=== PATIENT | male | born 1950 | race Caucasian/White ===

== ENCOUNTER → 2016-06-07 | Outpatient (CLI) | payer MEDICARE, OTHER ==
[2016-06-07 09:47] LABS: ABSOLUTE BASOPHILS # (AUTO) 0.1 10^3/uL (0.0-0.2); ABSOLUTE EOSINOPHILS # (AUTO) 0.1 10^3/uL (0.0-0.6); ABSOLUTE LYMPHOCYTES (AUTO) 2.4 10^3/uL (0.5-4.7); ABSOLUTE NEUT (AUTO) 6.7 10^3/uL (1.7-8.2); BASOPHILS % (AUTO) 0.5 % (0-2); EOSINOPHILS % (AUTO) 0.8 % (0-6); HEMATOCRIT 50.9 % (37.9-51.0); HEMOGLOBIN 17.6 g/dL (13.5-17.0); HGB HCT DIFFERENCE 1.9; LYMPHOCYTES % (AUTO) 23.2 % (13-45); MEAN CORPUSCULAR HEMOGLOBIN 31.3 pg (27.0-33.4); MEAN CORPUSCULAR HGB CONC 34.7 g/dL (32.0-36.0); MEAN CORPUSCULAR VOLUME 90 fl (80-97); MONOCYTES % (AUTO) 9.4 % (3-13); RED BLOOD COUNT 5.64 10^6/uL (4.35-5.55); RED CELL DISTRIBUTION WIDTH 14.1 % (11.5-14.0); SEGMENTED NEUTROPHILS % (AUTO) 66.1 % (42-78); WHITE BLOOD COUNT 10.2 10^3/uL (4.0-10.5)
== END ==
LOC: OD 09:13
PROVIDERS: ATTEND Internal Medicine Pulmonary Disease
DX: R05 Cough (principal)
CPT/HCPCS: 36415; 71020; 85025

== ENCOUNTER 2016-08-01 11:05 | Inpatient (IN) | payer MEDICARE, OTHER ==
[2016-08-01] MEDS ORDERED: ACETAMINOPHEN 325 MG TABLET PO PRN (11:15)
[2016-08-01 11:58] LABS: ABSOLUTE BASOPHILS # (AUTO) 0.1 10^3/uL (0.0-0.2); ABSOLUTE LYMPHOCYTES (AUTO) 2.2 10^3/uL (0.5-4.7); ABSOLUTE MONOCYTES (AUTO) 1.7 10^3/uL (0.1-1.4); ABSOLUTE NEUT (AUTO) 8.7 10^3/uL (1.7-8.2); BASOPHILS % (AUTO) 0.5 % (0-2); EOSINOPHILS % (AUTO) 0.2 % (0-6); HEMATOCRIT 52.5 % (37.9-51.0); HEMOGLOBIN 17.4 g/dL (13.5-17.0); HGB HCT DIFFERENCE -0.3; LYMPHOCYTES % (AUTO) 17.2 % (13-45); MEAN CORPUSCULAR HEMOGLOBIN 30.2 pg (27.0-33.4); MEAN CORPUSCULAR HGB CONC 33.1 g/dL (32.0-36.0); MEAN CORPUSCULAR VOLUME 91 fl (80-97); MONOCYTES % (AUTO) 13.3 % (3-13); RED BLOOD COUNT 5.77 10^6/uL (4.35-5.55); RED CELL DISTRIBUTION WIDTH 14.9 % (11.5-14.0); SEGMENTED NEUTROPHILS % (AUTO) 68.8 % (42-78); WHITE BLOOD COUNT 12.7 10^3/uL (4.0-10.5)
[2016-08-01] MEDS ORDERED: IPRATROPIUM/ALBUTEROL 0.5-2.5 MG/3 ML AMPUL NEB SCH ×2 (12:00→20:00)
[2016-08-01 12:16] LABS: ARTERIAL BLOOD BASE EXCESS -0.9 mmol/L; ARTERIAL BLOOD O2 SATURATION 93.6 % (94-98)
[2016-08-01 12:18] LABS: ALANINE AMINOTRANSFERASE 24 U/L (21-72); ALBUMIN 4.5 g/dL (3.5-5.0); ALKALINE PHOSPHATASE 98 U/L (38-126); ANION GAP 18 (5-19); ASPARTATE AMINO TRANSFERASE 22 U/L (17-59); BILIRUBIN,DIRECT 0.4 mg/dL (0.0-0.4); BILIRUBIN,TOTAL 1.5 mg/dL (0.2-1.3); BLOOD UREA NITROGEN 29 mg/dL (7-20); CALCIUM 10.6 mg/dL (8.4-10.2); CARBON DIOXIDE 20 mmol/L (22-30); CHLORIDE 105 mmol/L (98-107); CREATININE RESULT 1.37 mg/dL (0.52-1.25); GLUCOSE 111 mg/dL (75-110); POTASSIUM 4.5 mmol/L (3.6-5.0); SODIUM 142.7 mmol/L (137-145); TOTAL PROTEIN 7.7 g/dL (6.3-8.2)
--- NOTE | 2016-08-01 12:21 | RADIOLOGY REPORT (SQ) ---
EXAM DESCRIPTION: CHEST PA/LAT COMPLETED DATE/TIME: 08/01/2016 12:02 pm REASON FOR STUDY: sob COMPARISON: 06/07/2016. NUMBER OF VIEWS: Two view. TECHNIQUE: Frontal and lateral radiographic views of the chest acquired. LIMITATIONS: None. FINDINGS: LUNGS AND PLEURA: Chronic pleural and parenchymal scarring. Surgical changes. No lobar i nfiltrates, masses or pneumothorax. No pleural effusion. Attenuated blood vessels and flattened calista- diaphragms. MEDIASTINUM AND HILAR STRUCTURES: No masses. No contour abnormalities. HEART AND VASCULAR STRUCTURES: Heart normal in size and contour. No evidence for failure. BONES: No acute findings. HARDWARE: None in the chest. OTHER: No other significant finding. IMPRESSION: COPD. CHRONIC SCARRING. NO ACUTE RADIOGRAPHIC FINDING IN THE CHEST. TECHNICAL DOCUMENTATION: JOB ID: [id number] [employer]- All Rights Reserved
[2016-08-01] MEDS: LEVOFLOXACIN 500 MG/D5W RTU 500 MG/100 ML RTUPB IV SCH (13:33)
[2016-08-01] MEDS: METHYLPREDNISOLONE INJ 40 MG/1 ML SDV IV SCH ×2 (13:34→21:47)
[2016-08-01] MEDS: NORMAL SALINE 1000 ML 1,000 ML IV PRN (13:35)
[2016-08-01 13:36] LABS: CREATINE KINASE MB 1.75 ng/mL (<4.55); TROPONIN I 0.049 ng/mL
[2016-08-01] MEDS: LEVALBUTEROL HCL NEB 1.25 MG/3 ML AMPUL NEB SCH ×2 (13:52→20:09)
--- NOTE | 2016-08-01 14:02 | PDOC H&P ---
History of Present Illness Admission Date/PCP: 08/01/16 11:05 ADRIEN GEE MD Patient complains of: Shortness of the breath History of Present Illness: This is a 66-year-old male with a significant history of the lung cancer status post surgery and chemotherapy and a history of the COPD and anxiety disorderCame to the Office with a complaint of shortness of the breath and increasing more cough and congestion since last 1 week and not getting better. Patient's denied any chest pain denied any nausea no vomiting Patient O2 sat is 85% in room air and patient usually needed 2 L oxygen at home at nighttime but not during the daytime. Patient also see a doctor Adri as outpatients for the COPD In the office decided to the patient's put in the hospital because of the hypoxia and the COPD acute exacerbations Past Medical History Cardiac Medical History: Reports: Hypertension Denies: Coronary Artery Disease, Myocardial Infarction Pulmonary Medical History: Reports: Chronic Obstructive Pulmonary Disease (COPD) Denies: Asthma, Bronchitis, Pneumonia Neurological Medical History: Denies: Seizures Malignancy Medical History: Reports: Lung Cancer Musculoskeltal Medical History: Denies: Arthritis Psychiatric Medical History: Reports: General Anxiety Disorder Hematology: Denies: Anemia Past Surgical History Past Surgical History: Reports: Other - Lung lobe resections Social History Smoking Status: Former Smoker Cigarettes Packs Per Day: 0 Last Time Smoked: 6 yrs ago Frequency of Alcohol Use: Rare Hx Recreational Drug Use: No Drugs: None Hx Prescription Drug Abuse: No Family History Family History: Reviewed & Not Pertinent Parental Family History Reviewed: Yes Children Family History Reviewed: Yes Sibling(s) Family History Reviewed.: Yes Medication/Allergy Home Medications: Albuterol Sulfate [Albuterol Sulfate 2.5mg/3 mL] 1 vial IH Q4HP PRN 08/01/16 Albuterol Sulfate [Proair Hfa Inhalation Aerosol 8.5 gm Mdi] 1 puff IH Q4 PRN Aspirin [Aspirin EC] 81 mg PO DAILY 08/01/16 Felodipine [Felodipine ER] 10 mg PO DAILY 08/01/16 Fluticasone/Salmeterol [Advair 250-50 Diskus 28 dose] 1 inh IH Q12 08/01/16 Multivit-Min/FA/Lycopen/Lutein [Centrum Silver Men Tablet] 1 tab PO DAILY Simvastatin [Zocor 20 mg Tablet] 20 mg PO QHS 08/01/16 Tiotropium [place] [Spiriva Handihaler 18 mcg/dose (30 Dose)] 1 cap IH DAILY Allergies/Adverse Reactions: lisinopril [Lisinopril] Adverse Reaction (Severe, Verified 12/23/13 10:53) severe hypotension Review of Systems Constitutional: ABSENT: chills, fever(s), headache(s), weight gain, weight loss Eyes: ABSENT: visual disturbances Ears: ABSENT: hearing changes Cardiovascular: PRESENT: dyspnea on exertion. ABSENT: chest pain, edema, orthropnea, palpitations Respiratory: PRESENT: cough, dyspnea, sputum. ABSENT: hemoptysis Gastrointestinal: ABSENT: abdominal pain, constipation, diarrhea, hematemesis, hematochezia, nausea, vomiting Genitourinary: ABSENT: dysuria, hematuria Musculoskeletal: ABSENT: joint swelling Integumentary: ABSENT: rash, wounds Neurological: ABSENT: abnormal gait, abnormal speech, confusion, dizziness, focal weakness, syncope Psychiatric: ABSENT: anxiety, depression, homidical ideation, suicidal ideation Endocrine: ABSENT: cold intolerance, heat intolerance, menstrual abnormalities, polydipsia, polyuria Hematologic/Lymphatic: ABSENT: easy bleeding, easy bruising, lymphadenopathy Physical Exam Vital Signs: Temp Pulse Resp BP Pulse Ox 97.7 F 64 20 128/63 H 92 08/01/16 11:31 08/01/16 11:31 08/01/16 11:31 08/01/16 11:31 08/01/16 12:10 Pulse Oximeter Continuous Start: 08/01/16 11: 35 Freq: RTQ4 Status: Active Document 08/01/16 12:10 HCR (Rec: 08/01/16 12:52 HCR [email or web address]) Pulse Oximetry Assessment Oxygen Saturation (92-100) 92 Oxygen Flow Rate (L/min) 4 Oxygen Delivery Method Nasal Cannula Equipment Usage Initial Set Up Continuous Pulse Oximeter 24 Hour Charge Charge Now Continuous SpO2 Machine # 11 Intake & Output 07/31/16 08/01/16 08/02/16 06:59 06:59 06:59 Weight 81.284 kg General appearance: PRESENT: no acute distress, well-developed, well-nourished Head exam: PRESENT: atraumatic, normocephalic Eye exam: PRESENT: conjunctiva pink, EOMI, PERRLA. ABSENT: scleral icterus Ear exam: PRESENT: normal external ear exam Mouth exam: PRESENT: moist, tongue midline Neck exam: PRESENT: full ROM. ABSENT: carotid bruit, JVD, lymphadenopathy, thyromegaly Respiratory exam: PRESENT: decreased breath sounds, wheezes Cardiovascular exam: PRESENT: irregular rhythm, RRR. ABSENT: diastolic murmur, rubs, systolic murmur Pulses: PRESENT: normal dorsalis pedis pul, +2 pedal pulses bilateral Vascular exam: PRESENT: normal capillary refill GI/Abdominal exam: PRESENT: normal bowel sounds, soft. ABSENT: distended, guarding, mass, organolmegaly, rebound, tenderness Rectal exam: PRESENT: deferred Neurological exam: PRESENT: alert, awake, oriented to person, oriented to place , oriented to time, oriented to situation, CN II-XII grossly intact. ABSENT: motor sensory deficit Psychiatric exam: PRESENT: appropriate affect, normal mood. ABSENT: homicidal ideation, suicidal ideation Skin exam: PRESENT: dry, intact, warm. ABSENT: cyanosis, rash Results Laboratory Results: 08/01/16 11:42 08/01/16 11:42 08/01/16 08/01/16 08/01/16 11:42 11:42 11:50 WBC 12.7 H RBC 5.77 H Hgb 17.4 H Hct 52.5 H MCV 91 MCH 30.2 MCHC 33.1 RDW 14.9 H Plt Count 310 Seg Neutrophils % 68.8 Lymphocytes % 17.2 Monocytes % 13.3 H Eosinophils % 0.2 Basophils % 0.5 Absolute Neutrophils 8.7 H Absolute Lymphocytes 2.2 Absolute Monocytes 1.7 H Absolute Eosinophils 0.0 Absolute Basophils 0.1 Carbonic Acid 0.80 L HCO3/H2CO3 Ratio 25:1 ABG pH 7.50 H ABG pCO2 26.5 L ABG pO2 60.7 L ABG HCO3 20.2 ABG O2 Saturation 93.6 L ABG Base Excess -0.9 FiO2 2L Sodium 142.7 Potassium 4.5 Chloride 105 Carbon Dioxide 20 L Anion Gap 18 BUN 29 H Creatinine 1.37 H Est GFR ( Amer) > 60 Est GFR (Non-Af Amer) 52 L Glucose 111 H Calcium 10.6 H Total Bilirubin 1.5 H AST 22 ALT 24 Alkaline Phosphatase 98 Total Protein 7.7 Albumin 4.5 08/01/16 08/01/16 08/01/16 11:42 12:41 12:41 Creatine Kinase 67 CK-MB (CK-2) 1.75 Troponin I 0.049 NT-Pro-B Natriuret Pep 4600 H Impressions: Chest X-Ray 08/01/16 00:00 IMPRESSION: COPD. CHRONIC SCARRING. NO ACUTE RADIOGRAPHIC FINDING IN THE CHEST. Assessment & Plan - Diagnosis (1) Shortness of breath Is this a current diagnosis for this admission?: YesPlan: Most likely COPD acute exacerbations will get the chest x-ray and start COPD treatment (2) COPD with acute exacerbation Is this a current diagnosis for this admission?: YesPlan: Start the patient on IV Solu-Medrol and Xopenex treatments and continues to monitor (3) Lung cancer Qualifiers: Lung location: unspecified part of lung Is this a current diagnosis for this admission?: YesPlan: Status post surgery and chemotherapy currently all stable patient see her Dr. Cat as outpatients (4) Atrial fibrillation Qualifiers: Atrial fibrillation type: unspecified Qualified Code(s): I48.91 - Unspecified atrial fibrillation Is this a current diagnosis for this admission?: YesPlan: We will consult the cardiology with this possible new onset for further evaluations (5) Hypertension Qualifiers: Hypertension type: essential hypertension Qualified Code(s): I10 - Essential (primary) hypertension Is this a current diagnosis for this admission?: YesPlan: Currently stable (6) Hyperlipidemia Is this a current diagnosis for this admission?: Yes - Time Time Spent: 30 to 50 Minutes Medications reviewed and adjusted accordingly: Yes Anticipated discharge: Home Within: Other - Inpatient Certification Medical Necessity: Need Close Monitoring Due to Risk of Patient Decompensation, Need For IV Fluids, Need for IV Antibiotics Post Hospital Care: D/C Fiscal Analyst Documentation - Plan Summary Plan Summary: Admit the patient in the hospital start the COPD treatment and continues to monitor. Discussed with the patient's regarding the patient's current conditions and agree with the plan
[2016-08-01] MEDS: MAGNESIUM SULFATE 1 GM/D5W 100 ML IV SCH ×2 (16:52→17:34)
[2016-08-01] MEDS: DOCUSATE SODIUM 100 MG CAPSULE PO SCH (17:37)
--- NOTE | 2016-08-01 19:25 | XCELERA REPORT ---
[address] [address] Transthoracic Echocardiogram Report Name: OZ KOCH Age: 66 yrs Gender: Male : 1950 Patient Status: Inpatient Patient Location: [id number]\S\435\[id number]\A Study Date: 08/01/2016 02:38 PM Height: 69 in Weight: 179 lb BSA: 2.0 m2 Procedure: A complete two-dimensional transthoracic echocardiogram was performed (2D, M-mode, spectral and color flow Doppler). The study was technically difficult with many images being suboptimal in quality. Reason For Study: Ventricular dysrhythmia Ordering Physician: DEBBY ISRAEL Performed By: Gill Muñoz Interpretation Summary The left ventricular ejection fraction is normal. LV diastolic function could not be adequately assessed. There is borderline concentric left ventricular hypertrophy. The left ventricle is grossly normal size. Wall motion cannot be accurately commented on, but no definite regional wall motion abnormalities noted. The right ventricle is moderately dilated. The right ventricular systolic function is mild to moderately reduced. The left atrial size is normal. The right atrium is moderately dilated. There is a trace amount of mitral regurgitation There is no mitral valve stenosis. No aortic regurgitation is present. There is no aortic valve stenosis There is a trace to mild amount of tricuspid regurgitation There is mild pulmonary hypertension by echo Right ventricular systolic pressure is estimated to be elevated at 30- 40mmHg. There is no pericardial effusion. MMode/2D Measurements \T\ Calculations RVDd: 4.1 cm LVIDd: 4.5 cmFS: 33.8 % Ao root diam: 3.6 cm IVSd: 1.1 cm LVIDs: 3.0 cmEDV(Teich): 92.0 ml LVPWd: 1.1 cmESV(Teich): 34.2 ml Ao root area: 10.2 cm2 EF(Teich): 62.8 % LA dimension: 3.1 cm LVOT diam: 2.1 cm LVOT area: 3.3 cm2 Doppler Measurements \T\ Calculations MV E max teena: MV P1/2t max teena: Ao V2 max: LV V1 max P.1 cm/sec 51.4 cm/sec 151.3 cm/sec 3.7 mmHg MV A max teena: MV P1/2t: 71.1 msec Ao max PG: LV V1 max: 60.7 cm/sec MVA(P1/2t): 3.1 cm2 9.2 mmHg 96.3 cm/sec MV E/A: 0.84 MV dec slope: MADDIE(V,D): 2.1 cm2 211.9 cm/sec2 PA V2 max: PI end-d teena: TR max teena: 62.2 cm/sec 124.9 cm/sec 272.6 cm/sec PA max PG: TR max P.5 mmHg 29.7 mmHg Left Ventricle The left ventricle is grossly normal size. There is borderline concentric left ventricular hypertrophy. The left ventricular ejection fraction is normal. LV diastolic function could not be adequately assessed. Wall motion cannot be accurately commented on, but no definite regional wall motion abnormalities noted. Right Ventricle The right ventricle is moderately dilated. The right ventricle appears to be hypertrophied. The right ventricular systolic function is mild to moderately reduced. Atria The right atrium is moderately dilated. The left atrial size is normal. Interarterial septum not well visualized and not well dopplered. Cannot comment on ASD/PFO presence. Mitral Valve The mitral valve is not well visualized. There is no mitral valve stenosis. There is a trace amount of mitral regurgitation. Aortic Valve The aortic valve is grossly normal. There is no aortic valve stenosis. No aortic regurgitation is present. Tricuspid Valve The tricuspid valve is not well visualized, but is grossly normal. There is no tricuspid stenosis. There is a trace to mild amount of tricuspid regurgitation. There is mild pulmonary hypertension by echo. Right ventricular systolic pressure is estimated to be elevated at 30-40mmHg. Pulmonic Valve The pulmonic valve is not well visualized. There is a mild amount of pulmonic regurgitation. Great Vessels The aortic root is not well visualized. The inferior vena cava was not well visualized. Effusions There is no pericardial effusion. : DEBBY ISRAEL > Debby Israel
[2016-08-01 19:54] LABS: CREATINE KINASE MB 1.51 ng/mL (<4.55); TROPONIN I 0.039 ng/mL
--- NOTE | 2016-08-01 20:03 | PDOC CONSULTATION ---
Consultation Consult Date: 08/01/16 Attending physician:: RAOUL JENKINS Consult reason:: Cardiac dysrhythmia History of Present Illness Admission Date/PCP: 08/01/16 11:05 ADRIEN RUSH MD Patient complains of: Shortness of breath History of Present Illness: This is a 66-year-old male with a significant history of the lung cancer status post surgery and chemotherapy and a history of the COPD and anxiety disorder admitted to the PMD office with a complaint of shortness of the breath and increasing more cough and congestion. Patient was noted to have a irregular heart rhythm and was felt to have atrial fibrillation. In fact computer readout of EKG shows atrial fibrillation however on my review it seems patient just had frequent ventricular ectopics. Patient's denied any chest pain, denied any nausea no vomiting Patient O2 sat is 85% in room air and patient usually needed 2 L oxygen at home at nighttime but not during the daytime. Patient also see Dr. Rush as outpatients for the COPD I was asked to evaluate this patient because of significant cardiac dysrhythmia. Past Medical History Cardiac Medical History: Reports: Hypertension Denies: Coronary Artery Disease, Myocardial Infarction Pulmonary Medical History: Reports: Chronic Obstructive Pulmonary Disease (COPD) Denies: Asthma, Bronchitis, Pneumonia Neurological Medical History: Denies: Seizures Malignancy Medical History: Reports: Lung Cancer Musculoskeltal Medical History: Denies: Arthritis Psychiatric Medical History: Reports: General Anxiety Disorder Hematology: Denies: Anemia Past Surgical History Past Surgical History: Reports: Other - Lung lobe resections Social History Information Source: Patient Smoking Status: Former Smoker Cigarettes Packs Per Day: 0 Last Time Smoked: 6 yrs ago Frequency of Alcohol Use: Rare Hx Recreational Drug Use: No Drugs: None Hx Prescription Drug Abuse: No - Advance Directive Resuscitation Status: Full Code Surrogate healthcare decision maker:: Patient's is the surrogate decision-maker Family History Family History: COPD Parental Family History Reviewed: Yes Children Family History Reviewed: Yes Sibling(s) Family History Reviewed.: Yes Medication/Allergy Home Medications: Albuterol Sulfate [Albuterol Sulfate 2.5mg/3 mL] 1 vial IH Q4HP PRN 08/01/16 Albuterol Sulfate [Proair Hfa Inhalation Aerosol 8.5 gm Mdi] 1 puff IH Q4 PRN Aspirin [Aspirin EC] 81 mg PO DAILY 08/01/16 Felodipine [Felodipine ER] 10 mg PO DAILY 08/01/16 Fluticasone/Salmeterol [Advair 250-50 Diskus 28 dose] 1 inh IH Q12 08/01/16 Multivit-Min/FA/Lycopen/Lutein [Centrum Silver Men Tablet] 1 tab PO DAILY Simvastatin [Zocor 20 mg Tablet] 20 mg PO QHS 08/01/16 Tiotropium [place] [Spiriva Handihaler 18 mcg/dose (30 Dose)] 1 cap IH DAILY Allergies/Adverse Reactions: lisinopril [Lisinopril] Adverse Reaction (Severe, Verified 12/23/13 10:53) severe hypotension Review of Systems Review of Systems: Please see history of present illness and past medical history as wall. Constitutional: No fever or chills reported. Head : No recent chronic headaches, recent head injury. Eyes: No recent eye pain, diplopia, redness, discharge, acute visual changes. Ears: No recent chronic ear pain, acute hearing loss, ear discharge. Oral cavity: No recent ulcerations, bleeding, oral cavity discomfort. Neck: No recent acute neck pain reported. Hematologic: No recent easy bruising or bleeding or hematologic malignancy reported. History of lung malignancy Lymphatic: No recent lymphatic malignancy, chronic lymphadenopathy reported yet Cardiovascular system review: See history of present illness. Respiratory system review: Recent cough with sputum production but no hemoptysis , blood clots in the lungs reported. Mild Shortness of breath on exertion Gastrointestinal system review: Negative for any recent acute or chronic abdominal pain, hematemesis, melena, recent change in bowel habits. Genitourinary system review: No recent acute or chronic hematuria, flank pain, UTI etc. reported. Skin system review: Negative for any recent abnormal bruising, no rash, no pruritus reported. Neurologic: No prior history of strokes, mini strokes, seizure disorder. Psychologic: No history of major psychosis or major depression reported. Musculoskeletal: Minor aches and pains reported. No acute joint swelling reported. Endocrine: No recent polyuria, polydipsia, recent heat or cold intolerance. Physical Exam Vital Signs: Temp Pulse Resp BP Pulse Ox 97.7 F 84 18 128/63 H 91 L 08/01/16 11:31 08/01/16 19:24 08/01/16 13:52 08/01/16 11:31 08/01/16 16:00 Pulse Oximeter Continuous Start: 08/01/16 11: 35 Freq: RTQ4 Status: Active Document 08/01/16 16:00 [facility] (Rec: 08/01/16 18:19 [facility] [email or web address]) Pulse Oximetry Assessment Oxygen Saturation (92-100) 91 Oxygen Flow Rate (L/min) 4 Oxygen Delivery Method Nasal Cannula Equipment Usage Equipment in Use Continuous SpO2 Machine # 11 Intake & Output 07/31/16 08/01/16 08/02/16 06:59 06:59 06:59 Weight 81.284 kg Exam: GENERAL: well-nourished and in no acute distress. Alert and oriented x3 HEAD: Atraumatic, normocephalic. EYES: Pupils equal round and reactive to light, extraocular movements intact, sclera anicteric, conjunctiva are normal. ENT: TMs normal, nares patent, oropharynx clear without exudates. Moist mucous membranes. No oral ulcerations or bleeding gums noted NECK: supple without lymphadenopathy. Trachea is central. No cervical or axillary lymphadenopathy noted. Carotids are 2+, JVD WNL LUNGS: Respiration seems nonlabored, no significant accessory muscle action noted. Bilateral mild wheezes rales or rhonchi noted. No significant dullness noted on percussion. CHEST: Palpation of the chest wall shows no significant chest wall tenderness. No other significant abnormalities noted. HEART: [place] CLINICAL APPLICATION CONSULTANT, No PSH, 1/6 LISANDRO aortic area, 1/6 valentine systolic murmur mitral area, no rubs, no gallops. ABDOMEN: Soft, no significant tenderness appreciated, normoactive bowel sounds. No guarding, no rebound. No rigidity noted . No masses appreciated. EXTREMITIES: Pedal pulses are 1-2+, no calf tenderness noted. No clubbing or cyanosis.trace to 1+ pedal edema noted NEUROLOGICAL: Focused neurological exam showed no significant neurologic deficit. Normal speech, no focal weakness appreciated. PSYCH: Normal mood, normal affect. Judgment and insight within normal limits. SKIN: No significant ecchymosis, rash, ulcerations or signs of pruritus noted. MUSCULOSKELETAL EXAM: No significant joint swelling noted. Results Laboratory Results: 08/01/16 11:42 08/01/16 11:42 08/01/16 08/01/16 08/01/16 11:42 11:42 11:50 WBC 12.7 H RBC 5.77 H Hgb 17.4 H Hct 52.5 H MCV 91 MCH 30.2 MCHC 33.1 RDW 14.9 H Plt Count 310 Seg Neutrophils % 68.8 Lymphocytes % 17.2 Monocytes % 13.3 H Eosinophils % 0.2 Basophils % 0.5 Absolute Neutrophils 8.7 H Absolute Lymphocytes 2.2 Absolute Monocytes 1.7 H Absolute Eosinophils 0.0 Absolute Basophils 0.1 Carbonic Acid 0.80 L HCO3/H2CO3 Ratio 25:1 ABG pH 7.50 H ABG pCO2 26.5 L ABG pO2 60.7 L ABG HCO3 20.2 ABG O2 Saturation 93.6 L ABG Base Excess -0.9 FiO2 2L Sodium 142.7 Potassium 4.5 Chloride 105 Carbon Dioxide 20 L Anion Gap 18 BUN 29 H Creatinine 1.37 H Est GFR ( Amer) > 60 Est GFR (Non-Af Amer) 52 L Glucose 111 H Calcium 10.6 H Magnesium Total Bilirubin 1.5 H AST 22 ALT 24 Alkaline Phosphatase 98 Total Protein 7.7 Albumin 4.5 08/01/16 12:41 WBC RBC Hgb Hct MCV MCH MCHC RDW Plt Count Seg Neutrophils % Lymphocytes % Monocytes % Eosinophils % Basophils % Absolute Neutrophils Absolute Lymphocytes Absolute Monocytes Absolute Eosinophils Absolute Basophils Carbonic Acid HCO3/H2CO3 Ratio ABG pH ABG pCO2 ABG pO2 ABG HCO3 ABG O2 Saturation ABG Base Excess FiO2 Sodium Potassium Chloride Carbon Dioxide Anion Gap BUN Creatinine Est GFR ( Amer) Est GFR (Non-Af Amer) Glucose Calcium Magnesium 2.0 Total Bilirubin AST ALT Alkaline Phosphatase Total Protein Albumin 08/01/16 08/01/16 08/01/16 11:42 12:41 12:41 Creatine Kinase 67 CK-MB (CK-2) 1.75 Troponin I 0.049 NT-Pro-B Natriuret Pep 4600 H 08/01/16 18:45 Creatine Kinase 64 CK-MB (CK-2) Troponin I NT-Pro-B Natriuret Pep EKG Comments: Indeterminate rhythm, frequent ventricular ectopy, couplets, bundle branch block pattern. Recommend repeat EKG Impressions: Chest X-Ray 08/01/16 00:00 IMPRESSION: COPD. CHRONIC SCARRING. NO ACUTE RADIOGRAPHIC FINDING IN THE CHEST. Status: Image reviewed by me Assessment & Plan - Diagnosis (1) Cardiac dysrhythmia Qualifiers: Arrhythmia type: unspecified cardiac arrhythmia Qualified Code(s): I49.9 - Cardiac arrhythmia, unspecified Is this a current diagnosis for this admission?: Yes (2) Hyperlipidemia Qualifiers: Hyperlipidemia type: other hyperlipidemia Qualified Code(s): E78.4 - Other hyperlipidemia Is this a current diagnosis for this admission?: Yes (3) Hypertension Qualifiers: Hypertension type: essential hypertension Qualified Code(s): I10 - Essential (primary) hypertension Is this a current diagnosis for this admission?: Yes (4) Shortness of breath Is this a current diagnosis for this admission?: Yes (5) COPD with acute exacerbation Is this a current diagnosis for this admission?: Yes - Notes Notes: Plan 2D echocardiogram, ordered Plan magnesium level: Ordered, order for replacement if needed. EKG is ordered, to assess heart rhythm. Cardiac enzymes, serial to rule out [place]. Cardiac monitoring for any cardiac dysrhythmia. DVT prophylaxis. Cardiac dysrhythmia: Underlying heart rhythm very difficult to assess. Will repeat EKG, check magnesium level and replace magnesium if low. Maintain potassium within normal limits. Switch patient from albuterol to Xopenex. Treatment of hypoxemia will certainly help. Hyperlipidemia: LDL goal is less than 70. Recommend statin therapy at least intermediate or high dose, of high potency status. Periodic lipid panel and liver panel is indicated. Patient to report any significant muscle discomfort or other side effects. Hypertension: Blood pressure goal in this patient is 140/90 or less. This was discussed with the patient. Currently blood pressure under reasonable control. Dyspnea: Most likely related to COPD exacerbation. Patient may have underlying CAD. Agree with my [place] rule out protocol to be instituted. Recommend DVT prophylaxis. - Time Time Spent: 30 to 50 Minutes - CODE STATUS was discussed, patient remains full code. Surrogate decision-maker patient's . Multiple medical problems were addressed. More than 50% of the time spent coordinating care, discussing management plans with involved caregivers. Management plans discussed with involved personnels. Medical decision making was of moderate to high complexity , patient's has multiple comorbidities. Medications reviewed and adjusted accordingly: Yes
[2016-08-01] MEDS: SIMVASTATIN 10 MG TABLET PO SCH (21:47)
[2016-08-01] MEDS ORDERED: HYDRALAZINE HCL INJ/PF 20 MG/1 ML SDV IV PRN (21:55)
[2016-08-01 22:43] LABS: ANION GAP 15 (5-19); BLOOD UREA NITROGEN 33 mg/dL (7-20); CALCIUM 9.9 mg/dL (8.4-10.2); CARBON DIOXIDE 22 mmol/L (22-30); CHLORIDE 105 mmol/L (98-107); CREATININE RESULT 1.28 mg/dL (0.52-1.25); GLUCOSE 203 mg/dL (75-110); POTASSIUM 4.9 mmol/L (3.6-5.0); SODIUM 141.9 mmol/L (137-145)
--- NOTE | 2016-08-01 22:43 | EKG REPORT ---
SEVERITY:- ABNORMAL ECG - SINUS TACHYCARDIA RUN OF VENTRICULAR PREMATURE COMPLEXES LEFT ATRIAL ABNORMALITY LEFT POSTERIOR FASCICULAR BLOCK REPOL ABNRM SUGGESTS ISCHEMIA, ANT-LAT LEADS : Confirmed by: Debby Yepez 01-Aug-2016 22:41:46
--- NOTE | 2016-08-01 22:46 | EKG REPORT ---
SEVERITY:- ABNORMAL ECG - INDETERMINATE RHYTHM, PAIRED VENTRICULAR PREMATURE COMPLEXES RIGHT AXIS DEVIATION NONSPECIFIC REPOL ABNORMALITY, DIFFUSE LEADS FREQUENT VPCs : Confirmed by: Debby Yepez 01-Aug-2016 22:45:53
[2016-08-02 01:17] LABS: CREATINE KINASE MB 1.71 ng/mL (<4.55); TROPONIN I 0.035 ng/mL
[2016-08-02] MEDS: LEVALBUTEROL HCL NEB 1.25 MG/3 ML AMPUL NEB SCH ×4 (02:19→20:32)
[2016-08-02 04:06] LABS: ABSOLUTE LYMPHOCYTES (AUTO) 0.5 10^3/uL (0.5-4.7); ABSOLUTE MONOCYTES (AUTO) 0.1 10^3/uL (0.1-1.4); ABSOLUTE NEUT (AUTO) 6.4 10^3/uL (1.7-8.2); BASOPHILS % (AUTO) 0.1 % (0-2); HEMATOCRIT 45.9 % (37.9-51.0); HGB HCT DIFFERENCE -1.2; LYMPHOCYTES % (AUTO) 7.7 % (13-45); MEAN CORPUSCULAR HEMOGLOBIN 29.7 pg (27.0-33.4); MEAN CORPUSCULAR HGB CONC 32.4 g/dL (32.0-36.0); MEAN CORPUSCULAR VOLUME 92 fl (80-97); MONOCYTES % (AUTO) 1.6 % (3-13); RED BLOOD COUNT 5.01 10^6/uL (4.35-5.55); RED CELL DISTRIBUTION WIDTH 14.6 % (11.5-14.0); SEGMENTED NEUTROPHILS % (AUTO) 90.6 % (42-78); WHITE BLOOD COUNT 7.1 10^3/uL (4.0-10.5)
[2016-08-02 04:16] LABS: HEMOGLOBIN 14.9 g/dL (13.5-17.0)
[2016-08-02 04:18] LABS: ALANINE AMINOTRANSFERASE 26 U/L (21-72); ALBUMIN 3.4 g/dL (3.5-5.0); ALKALINE PHOSPHATASE 69 U/L (38-126); ANION GAP 14 (5-19); ASPARTATE AMINO TRANSFERASE 16 U/L (17-59); BILIRUBIN,DIRECT 0.4 mg/dL (0.0-0.4); BILIRUBIN,TOTAL 0.8 mg/dL (0.2-1.3); BLOOD UREA NITROGEN 31 mg/dL (7-20); CALCIUM 9.3 mg/dL (8.4-10.2); CARBON DIOXIDE 16 mmol/L (22-30); CHLORIDE 111 mmol/L (98-107); CREATININE RESULT 1.03 mg/dL (0.52-1.25); GLUCOSE 182 mg/dL (75-110); MAGNESIUM 1.9 mg/dL (1.6-2.3); POTASSIUM 4.3 mmol/L (3.6-5.0); SODIUM 141.2 mmol/L (137-145); TOTAL PROTEIN 5.6 g/dL (6.3-8.2)
[2016-08-02] MEDS: METHYLPREDNISOLONE INJ 40 MG/1 ML SDV IV SCH ×3 (06:17→21:38)
--- NOTE | 2016-08-02 08:54 | PDOC PROGRESS REPORT ---
Subjective Progress Note for:: 08/02/16 Subjective:: Patient is currently doing well any chest pain. Patient's shortness of the blood is much better. Patient had a significant ventricular bigeminy and seen by the cardiology and patient was transferred to the ICU for close monitor Patients denied any cardiac symptoms denied any dizziness Patients noticed that his heart is a little irritated since last several weeks he noticed some palpitations Physical Exam Vital Signs: Temp Pulse Resp BP Pulse Ox 98.1 F 104 H 22 H 143/69 H 94 08/02/16 07:53 08/02/16 07:53 08/02/16 07:53 08/02/16 07:53 08/02/16 07:53 Pulse Oximeter Continuous Start: 08/01/16 11: 35 Freq: RTQ4 Status: Complete Document 08/01/16 16:00 [facility] (Rec: 08/01/16 18:19 [facility] [email or web address]) Pulse Oximetry Assessment Oxygen Saturation (92-100) 91 Oxygen Flow Rate (L/min) 4 Oxygen Delivery Method Nasal Cannula Equipment Usage Equipment in Use Continuous SpO2 Machine # 11 Intake & Output 08/01/16 08/02/16 08/03/16 06:59 06:59 06:59 Intake Total 670 Output Total 300 0 Balance 370 0 Weight 82.8 kg General appearance: PRESENT: no acute distress, well-developed, well-nourished Head exam: PRESENT: atraumatic, normocephalic Eye exam: PRESENT: conjunctiva pink, EOMI, PERRLA. ABSENT: scleral icterus Ear exam: PRESENT: normal external ear exam Mouth exam: PRESENT: moist, tongue midline Neck exam: PRESENT: full ROM. ABSENT: carotid bruit, JVD, lymphadenopathy, thyromegaly Respiratory exam: PRESENT: clear to auscultation steven Cardiovascular exam: PRESENT: RRR. ABSENT: diastolic murmur, rubs, systolic murmur Pulses: PRESENT: normal dorsalis pedis pul, +2 pedal pulses bilateral Vascular exam: PRESENT: normal capillary refill GI/Abdominal exam: PRESENT: normal bowel sounds, soft. ABSENT: distended, guarding, mass, organolmegaly, rebound, tenderness Rectal exam: PRESENT: deferred Neurological exam: PRESENT: alert, awake, oriented to person, oriented to place , oriented to time, oriented to situation, CN II-XII grossly intact. ABSENT: motor sensory deficit Psychiatric exam: PRESENT: appropriate affect, normal mood. ABSENT: homicidal ideation, suicidal ideation Skin exam: PRESENT: dry, intact, warm. ABSENT: cyanosis, rash Results Laboratory Results: 08/02/16 03:43 08/02/16 03:43 08/01/16 08/01/16 08/01/16 11:42 11:42 11:50 WBC 12.7 H RBC 5.77 H Hgb 17.4 H Hct 52.5 H MCV 91 MCH 30.2 MCHC 33.1 RDW 14.9 H Plt Count 310 Seg Neutrophils % 68.8 Lymphocytes % 17.2 Monocytes % 13.3 H Eosinophils % 0.2 Basophils % 0.5 Absolute Neutrophils 8.7 H Absolute Lymphocytes 2.2 Absolute Monocytes 1.7 H Absolute Eosinophils 0.0 Absolute Basophils 0.1 Carbonic Acid 0.80 L HCO3/H2CO3 Ratio 25:1 ABG pH 7.50 H ABG pCO2 26.5 L ABG pO2 60.7 L ABG HCO3 20.2 ABG O2 Saturation 93.6 L ABG Base Excess -0.9 FiO2 2L Sodium 142.7 Potassium 4.5 Chloride 105 Carbon Dioxide 20 L Anion Gap 18 BUN 29 H Creatinine 1.37 H Est GFR ( Amer) > 60 Est GFR (Non-Af Amer) 52 L Glucose 111 H Calcium 10.6 H Magnesium Total Bilirubin 1.5 H AST 22 ALT 24 Alkaline Phosphatase 98 Total Protein 7.7 Albumin 4.5 08/01/16 08/01/16 08/02/16 12:41 22:16 03:43 WBC RBC Hgb Hct MCV MCH MCHC RDW Plt Count Seg Neutrophils % Lymphocytes % Monocytes % Eosinophils % Basophils % Absolute Neutrophils Absolute Lymphocytes Absolute Monocytes Absolute Eosinophils Absolute Basophils Carbonic Acid HCO3/H2CO3 Ratio ABG pH ABG pCO2 ABG pO2 ABG HCO3 ABG O2 Saturation ABG Base Excess FiO2 Sodium 141.9 141.2 Potassium 4.9 4.3 Chloride 105 111 H Carbon Dioxide 22 16 L Anion Gap 15 14 BUN 33 H 31 H Creatinine 1.28 H 1.03 Est GFR ( Amer) > 60 > 60 Est GFR (Non-Af Amer) 56 L > 60 Glucose 203 H 182 H Calcium 9.9 9.3 Magnesium 2.0 2.0 1.9 Total Bilirubin 0.8 AST 16 L ALT 26 Alkaline Phosphatase 69 Total Protein 5.6 L Albumin 3.4 L 08/02/16 03:43 WBC 7.1 RBC 5.01 Hgb 14.9 D Hct 45.9 MCV 92 MCH 29.7 MCHC 32.4 RDW 14.6 H Plt Count 254 Seg Neutrophils % 90.6 H Lymphocytes % 7.7 L Monocytes % 1.6 L Eosinophils % 0.0 Basophils % 0.1 Absolute Neutrophils 6.4 Absolute Lymphocytes 0.5 Absolute Monocytes 0.1 Absolute Eosinophils 0.0 Absolute Basophils 0.0 Carbonic Acid HCO3/H2CO3 Ratio ABG pH ABG pCO2 ABG pO2 ABG HCO3 ABG O2 Saturation ABG Base Excess FiO2 Sodium Potassium Chloride Carbon Dioxide Anion Gap BUN Creatinine Est GFR ( Amer) Est GFR (Non-Af Amer) Glucose Calcium Magnesium Total Bilirubin AST ALT Alkaline Phosphatase Total Protein Albumin 08/01/16 08/01/16 08/01/16 11:42 12:41 12:41 Creatine Kinase 67 CK-MB (CK-2) 1.75 Troponin I 0.049 NT-Pro-B Natriuret Pep 4600 H 08/01/16 08/01/16 08/02/16 18:45 18:45 00:46 Creatine Kinase 64 65 CK-MB (CK-2) 1.51 Troponin I 0.039 NT-Pro-B Natriuret Pep 08/02/16 00:46 Creatine Kinase CK-MB (CK-2) 1.71 Troponin I 0.035 NT-Pro-B Natriuret Pep Impressions: Chest X-Ray 08/01/16 00:00 IMPRESSION: COPD. CHRONIC SCARRING. NO ACUTE RADIOGRAPHIC FINDING IN THE CHEST. Assessment & Plan - Diagnosis (1) Shortness of breath Is this a current diagnosis for this admission?: YesPlan: Most likely COPD acute exacerbations will get the chest x-ray and start COPD treatment (2) COPD with acute exacerbation Is this a current diagnosis for this admission?: YesPlan: Continues to current medications change from DuoNeb to Xopenex (3) Lung cancer Qualifiers: Lung location: unspecified part of lung Is this a current diagnosis for this admission?: YesPlan: Status post surgery and chemotherapy currently all stable patient see her Dr. Cat as outpatients (4) Atrial fibrillation Qualifiers: Atrial fibrillation type: unspecified Qualified Code(s): I48.91 - Unspecified atrial fibrillation Is this a current diagnosis for this admission?: YesPlan: This most likely a cardiac erythremia with a ventricular bigeminy follow with the cardiology (5) Hypertension Qualifiers: Hypertension type: essential hypertension Qualified Code(s): I10 - Essential (primary) hypertension Is this a current diagnosis for this admission?: YesPlan: Currently stable (6) Hyperlipidemia Qualifiers: Hyperlipidemia type: other hyperlipidemia Qualified Code(s): E78.4 - Other hyperlipidemia Is this a current diagnosis for this admission?: Yes - Time Time Spent with patient: 15-24 minutes Medications reviewed and adjusted accordingly: Yes Anticipated discharge: Home Within: Other - Inpatient Certification Medical Necessity: Need Close Monitoring Due to Risk of Patient Decompensation Post Hospital Care: 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 Patient's fairly consider most likely ventricular bigeminy. Discussed with the cardiology and if is remained stable will sit back to the patient's of the IMCU
[2016-08-02] MEDS: DOCUSATE SODIUM 100 MG CAPSULE PO SCH ×2 (09:13→18:15)
[2016-08-02] MEDS: AMLODIPINE BESYLATE 5 MG TABLET PO SCH (09:14)
[2016-08-02] MEDS: ASPIRIN 81 MG TABLET, ENT COATED PO SCH (09:14)
[2016-08-02] MEDS: ENOXAPARIN SODIUM INJ 40 MG/0.4 ML DISP.SYRIN SUBCUT SCH (09:15)
[2016-08-02] MEDS: NORMAL SALINE 1000 ML 1,000 ML IV PRN (09:22)
[2016-08-02] MEDS ORDERED: (PENDING PHARMACY ID) (Felodipine [Felodipine Er] 10 MG) PO SCH (10:00)
--- NOTE | 2016-08-02 11:20 | EKG REPORT ---
SEVERITY:- ABNORMAL ECG - SINUS TACHYCARDIA MULTIPLE VENTRICULAR PREMATURE COMPLEXES LEFT ATRIAL ABNORMALITY NONSPECIFIC T ABNORMALITIES, LATERAL LEADS : Confirmed by: Debby Yepez 02-Aug-2016 11:19:02
[2016-08-02 11:53] LABS: ARTERIAL BLOOD BASE EXCESS -0.9 mmol/L; ARTERIAL BLOOD O2 SATURATION 96.6 % (94-98)
[2016-08-02] MEDS: LEVOFLOXACIN 500 MG/D5W RTU 500 MG/100 ML RTUPB IV SCH (11:54)
--- NOTE | 2016-08-02 14:58 | PROGRESS NOTE E ---
Progress Note NAME: OZ KOCH : 1950 AGE: 66Y DATE: 08/02/2016 ROOM: [facility] SUBJECTIVE: The patient denies any chest pain or discomfort. He continues to be in bigeminal rhythm. The patient has no history of syncope. Note that the patient's right ventricle is dilated and [id number] reduction of right ventricular function. The left atrium is also dilated. Although in the setting of this, there is only mild pulmonary hypertension, the right ventricular systolic pressure is 30-40 mmHg. Note that when the patient takes off his oxygen to go to the bathroom his saturations drop down into the 80s. Patient usually is on 2 L oxygen at home at nighttime, but not during the daytime. The patient has no cough or sputum production. There is no chest pain or discomfort. There is no palpitation. The patient does not feel any PVCs. There are no TIA or CVA symptoms. REVIEW OF SYSTEMS: Negative apart from the history of present illness as mentioned earlier. MEDICATIONS: The patient's medications have been reviewed. OBJECTIVE: GENERAL: The patient is well built and well nourished, in no acute distress, awake, alert, oriented x3. VITAL SIGNS: With a temperature of 97.6 degrees Fahrenheit, pulse is 100 beats per minute. The patient is in bigeminal rhythm. The blood pressure is 135/58, respirations are 22 per minute, O2 saturations are 93% on 4 L nasal cannula. HEAD: Atraumatic, normocephalic. EYES: Pupils are equal, round, regular, reactive to light and accommodation. Extraocular movements are normal. Sclera is without any icterus. Conjunctivae are normal. ENT: Negative. NECK: Supple without lymphadenopathy. Trachea is central. There is no cervical or axillary lymphadenopathy. Carotids are 2+. JVD is within normal limits. LUNGS: There are no accessory muscles of respiration in use. There are a few bilateral rhonchi. There is diminished air entry and prolonged expiration on auscultation. On percussion, there is hyperresonance. CARDIOVASCULAR SYSTEM: S1 and S2 are heard. There is no S3 gallop. There is no S4 gallop. There is a systolic murmur in the left sternal border of the apex. There is no rub. ABDOMEN: Soft, nontender. There is no hepatosplenomegaly. Bowel sounds are normal. There are no masses appreciated. EXTREMITIES: Pedal pulses are 1+ to 2+. There is no calf tenderness noted. There is no clubbing or cyanosis. There is trace pedal edema present. Femorals are diminished. There are no femoral bruits. CENTRAL NERVOUS SYSTEM: The patient is conscious, awake, alert, oriented x3 with no focal deficits. PSYCHIATRIC: The patient's judgment and insight are intact. His affect is normal. SKIN: There is no significant ecchymosis, rash, ulcerations, or signs of pruritus noted. MUSCULOSKELETAL: No significant joint swelling noted. DIAGNOSTIC STUDIES: The patient's EKG shows sinus tachycardia with PVCs. Left atrial abnormality. No *------* beats. The patient's intake and output is not accurate. The patient's white count is 7100, hemoglobin is 14.9, hematocrit is 45.9, platelet count is 254,000. The patient's sodium is 141.2, potassium 4.3, chloride 100, CO2 is 16. The patient's BUN is 31, creatinine is 1.03, GFR is greater than 60. His glucose is 182, his magnesium is 1.9, his calcium is 9.3. His liver function tests are normal with AST of 16. The patient's albumin is 3.4 and his total protein is 5.6. His CPK-MB is negative. His troponin I is 0.035. IMPRESSION AND PLAN: 1. CARDIAC DYSRHYTHMIA IN THE FORM OF PVCS, MOSTLY BIGEMINAL RHYTHM. With the right ventricular enlargement, would recommend that the patient be transferred once the COPD is controlled and back to baseline to [facility] to see if the patient needs further EP study. 2. HYPERLIPIDEMIA. 3. HYPERTENSION. 4. COPD WITH ACUTE EXACERBATION, IMPROVING. Continue Zocor. Continue albuterol sulfate and aspirin. Would recommend to change albuterol sulfate to Xopenex. Continue felodipine for his blood pressure and Advair Diskus 250/50. Also, Spiriva HandiHaler 18 one capsule inhalation daily. I have spoken to the family, especially the daughter and the about the patient being transferred. Once the patient's COPD gets back to baseline, then would discuss with [facility] EP Cardiology to see if they would take him for an EP study since the patient has very frequent PVCs. He has a dilated right ventricle. NOTE: Thirty minutes spent on this patient with more than 50% of the time spent on direct patient care. His medications have been reviewed and discussed with the other care providers on the case. Most likely, the cause of the right ventricular enlargement is the COPD and lung cancer having had surgery on both sides of the lung. NOTE: This moderate *------* in view of the PVCs. Will follow with you. Note that the patient is a FULL CODE. His is the surrogate healthcare decision maker. DICTATING PHYSICIAN: JEANETTE TENORIO M.D. [id number] PHY#: [id number] ID: [id number] JOB#: [id number] ACCT: [id number] cc: >
[2016-08-02] MEDS: SIMVASTATIN 10 MG TABLET PO SCH (21:38)
[2016-08-02] MEDS ORDERED: METHYLPREDNISOLONE INJ 40 MG/1 ML SDV ONE (21:43)
[2016-08-03] MEDS: LEVALBUTEROL HCL NEB 1.25 MG/3 ML AMPUL NEB SCH ×4 (02:05→20:21)
[2016-08-03 03:46] LABS: HEMATOCRIT 45.2 % (37.9-51.0); HEMOGLOBIN 14.8 g/dL (13.5-17.0); HGB HCT DIFFERENCE -0.8; MEAN CORPUSCULAR HEMOGLOBIN 29.7 pg (27.0-33.4); MEAN CORPUSCULAR HGB CONC 32.6 g/dL (32.0-36.0); MEAN CORPUSCULAR VOLUME 91 fl (80-97); RED BLOOD COUNT 4.97 10^6/uL (4.35-5.55); WHITE BLOOD COUNT 12.6 10^3/uL (4.0-10.5)
[2016-08-03 04:12] LABS: ANION GAP 11 (5-19); BLOOD UREA NITROGEN 28 mg/dL (7-20); CALCIUM 9.9 mg/dL (8.4-10.2); CARBON DIOXIDE 23 mmol/L (22-30); CHLORIDE 111 mmol/L (98-107); CREATININE RESULT 0.91 mg/dL (0.52-1.25); GLUCOSE 151 mg/dL (75-110); SODIUM 144.6 mmol/L (137-145)
[2016-08-03 04:14] LABS: BASOPHILS % (MANUAL) 0 % (0-2); EOSINOPHILS % (MANUAL) 0 % (0-6); LYMPHOCYTES % (MANUAL) 6 % (13-45); TOTAL CELLS COUNTED 100
[2016-08-03 04:15] LABS: ANISOCYTOSIS SLIGHT; TOXIC VACUOLATION PRESENT
[2016-08-03 04:24] LABS: POTASSIUM 5.2 mmol/L (3.6-5.0)
[2016-08-03] MEDS ORDERED: METHYLPREDNISOLONE INJ 40 MG/1 ML SDV ONE (05:27)
[2016-08-03] MEDS: METHYLPREDNISOLONE INJ 40 MG/1 ML SDV IV SCH ×3 (05:35→21:07)
--- NOTE | 2016-08-03 07:09 | RADIOLOGY REPORT (SQ) ---
EXAM DESCRIPTION: CHEST SINGLE VIEW COMPLETED DATE/TIME: 08/03/2016 6:14 am REASON FOR STUDY: sob COMPARISON: 08/01/2016, 03/11/2015. CT, 03/12/2015. EXAM PARAMETERS: NUMBER OF VIEWS: One view. TECHNIQUE: Single frontal radiographic view of the chest acquired. RADIATION DOSE: NA LIMITATIONS: None. FINDINGS: LUNGS AND PLEURA: Blunting of the left costophrenic angle. Small bibasilar scar. Promine nt left cardiophrenic fat pad. Mild emphysematous appearance of the lungs. Small suture -scar overl ie the upper lungs. MEDIASTINUM AND HILAR STRUCTURES: No masses. Contour normal. HEART AND VASCULAR STRUCTURES: Heart normal in size. Normal vasculature. BONES: No acute findings. HARDWARE: None in the chest. OTHER: No other significant finding. IMPRESSION: No significant interval change. TECHNICAL DOCUMENTATION: JOB ID: [id number]
[2016-08-03] MEDS ORDERED: SODIUM POLYSTYRENE SULFONATE 15 GM/60 ML PO ONE (08:00)
[2016-08-03] MEDS: ENOXAPARIN SODIUM INJ 40 MG/0.4 ML DISP.SYRIN SUBCUT SCH (08:33)
--- NOTE | 2016-08-03 09:16 | EKG REPORT ---
SEVERITY:- ABNORMAL ECG - SINUS TACHYCARDIA VENTRICULAR BIGEMINY INCOMPLETE RIGHT BUNDLE BRANCH BLOCK BORDERLINE R WAVE PROGRESSION, ANTERIOR LEADS NONSPECIFIC REPOL ABNORMALITY, LATERAL LEADS : Confirmed by: Debby Yepez 03-Aug-2016 09:16:14
--- NOTE | 2016-08-03 09:43 | Physician Advisory Note ---
Physician Advisor ProgressNote .: Pursuant to the plan for [facility], I have reviewed the medical record for this patient. Physician Advisor Statement: Please consider documentin. "Chronic Hypoxemic Resp Failure requiring 2L O2 at night at baseline" 2. "Acute hypoxemic resp failure, requiring 4L O2 initially at midday to get sat 92% (when he usually needs no O2 during the day) with associated tachypnea & tachycardia & SOB even at rest" [P/F ratio of 178] THanks! CK
[2016-08-03] MEDS: DOCUSATE SODIUM 100 MG CAPSULE PO SCH ×2 (09:50→17:23)
[2016-08-03] MEDS: AMLODIPINE BESYLATE 5 MG TABLET PO SCH (09:50)
[2016-08-03] MEDS: ASPIRIN 81 MG TABLET, ENT COATED PO SCH (09:50)
[2016-08-03] MEDS: RANOLAZINE 500 MG TAB.SR.12H PO SCH ×2 (09:50→17:23)
[2016-08-03] MEDS: LEVOFLOXACIN 500 MG/D5W RTU 500 MG/100 ML RTUPB IV SCH (11:57)
--- NOTE | 2016-08-03 12:45 | PDOC PROGRESS REPORT ---
Subjective Progress Note for:: 08/03/16 Subjective:: Patient is feeling much better denied any chest pain denied any nausea no vomiting. Patient heart rate is currently stable. No other events happens. As discussed with the Dr. Mcgee suggest that he talk to Dr. Bowen in the [place] and suggest the patient's put on Ranexa and follow outpatients Physical Exam Vital Signs: Temp Pulse Resp BP Pulse Ox 97.5 F 92 29 H 116/53 L 86 L 08/03/16 09:25 08/03/16 09:25 08/03/16 11:00 08/03/16 10:50 08/03/16 11:00 Pulse Oximeter Continuous Start: 08/01/16 11: 35 Freq: RTQ4 Status: Complete Document 08/01/16 16:00 [facility] (Rec: 08/01/16 18:19 [facility] [email or web address]) Pulse Oximetry Assessment Oxygen Saturation (92-100) 91 Oxygen Flow Rate (L/min) 4 Oxygen Delivery Method Nasal Cannula Equipment Usage Equipment in Use Continuous SpO2 Machine # 11 Intake & Output 08/02/16 08/03/16 08/04/16 06:59 06:59 06:59 Intake Total 670 1022 240 Output Total 300 600 0 Balance 370 422 240 Weight 82.8 kg 83.7 kg General appearance: PRESENT: no acute distress, well-developed, well-nourished Head exam: PRESENT: atraumatic, normocephalic Eye exam: PRESENT: conjunctiva pink, EOMI, PERRLA. ABSENT: scleral icterus Ear exam: PRESENT: normal external ear exam Mouth exam: PRESENT: moist, tongue midline Neck exam: PRESENT: full ROM. ABSENT: carotid bruit, JVD, lymphadenopathy, thyromegaly Respiratory exam: PRESENT: clear to auscultation steven Cardiovascular exam: PRESENT: RRR. ABSENT: diastolic murmur, rubs, systolic murmur Pulses: PRESENT: normal dorsalis pedis pul, +2 pedal pulses bilateral Vascular exam: PRESENT: normal capillary refill GI/Abdominal exam: PRESENT: normal bowel sounds, soft. ABSENT: distended, guarding, mass, organolmegaly, rebound, tenderness Rectal exam: PRESENT: deferred Neurological exam: PRESENT: alert, awake, oriented to person, oriented to place , oriented to time, oriented to situation, CN II-XII grossly intact. ABSENT: motor sensory deficit Psychiatric exam: PRESENT: appropriate affect, normal mood. ABSENT: homicidal ideation, suicidal ideation Skin exam: PRESENT: dry, intact, warm. ABSENT: cyanosis, rash Results Laboratory Results: 08/03/16 03:31 08/03/16 03:31 08/03/16 08/03/16 03:31 03:31 WBC 12.6 H RBC 4.97 Hgb 14.8 Hct 45.2 MCV 91 MCH 29.7 MCHC 32.6 RDW 15.0 H Plt Count 277 Seg Neutrophils % Not Reportable Lymphocytes % Not Reportable Monocytes % Not Reportable Eosinophils % Not Reportable Basophils % Not Reportable Absolute Neutrophils Not Reportable Absolute Lymphocytes Not Reportable Absolute Monocytes Not Reportable Absolute Eosinophils Not Reportable Absolute Basophils Not Reportable Sodium 144.6 Potassium 5.2 H Chloride 111 H Carbon Dioxide 23 Anion Gap 11 BUN 28 H Creatinine 0.91 Est GFR ( Amer) > 60 Est GFR (Non-Af Amer) > 60 Glucose 151 H Calcium 9.9 Magnesium 2.0 08/01/16 08/01/16 08/01/16 11:42 12:41 12:41 Creatine Kinase 67 CK-MB (CK-2) 1.75 Troponin I 0.049 NT-Pro-B Natriuret Pep 4600 H 08/01/16 08/01/16 08/02/16 18:45 18:45 00:46 Creatine Kinase 64 65 CK-MB (CK-2) 1.51 Troponin I 0.039 NT-Pro-B Natriuret Pep 08/02/16 00:46 Creatine Kinase CK-MB (CK-2) 1.71 Troponin I 0.035 NT-Pro-B Natriuret Pep Impressions: Chest X-Ray 08/03/16 07:00 IMPRESSION: No significant interval change. Assessment & Plan - Diagnosis (1) Shortness of breath Is this a current diagnosis for this admission?: YesPlan: Currently all improving will cut down the Solu-Medrol to 40 mg (2) COPD with acute exacerbation Is this a current diagnosis for this admission?: YesPlan: Continues to current medications change from DuoNeb to Xopenex (3) Lung cancer Qualifiers: Lung location: unspecified part of lung Is this a current diagnosis for this admission?: YesPlan: Status post surgery and chemotherapy currently all stable patient see her Dr. Cat as outpatients (4) Atrial fibrillation Qualifiers: Atrial fibrillation type: unspecified Qualified Code(s): I48.91 - Unspecified atrial fibrillation Is this a current diagnosis for this admission?: YesPlan: Most likely ventricular bigeminy follow with the cardiology (5) Hypertension Qualifiers: Hypertension type: essential hypertension Qualified Code(s): I10 - Essential (primary) hypertension Is this a current diagnosis for this admission?: YesPlan: Currently stable (6) Hyperlipidemia Qualifiers: Hyperlipidemia type: other hyperlipidemia Qualified Code(s): E78.4 - Other hyperlipidemia Is this a current diagnosis for this admission?: Yes - Time Time Spent with patient: 15-24 minutes Medications reviewed and adjusted accordingly: Yes Anticipated discharge: Home Within: within 48 hours - Inpatient Certification Medical Necessity: Need Close Monitoring Due to Risk of Patient Decompensation Post Hospital Care: D/C Resource Room [employer]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 Discussed with the patient's and the daughter about the patient's current conditions and all the test results
--- NOTE | 2016-08-03 14:31 | PDOC CONSULTATION ---
Consultation Consult Date: 08/01/16 Attending physician:: RAOUL JENKINS Consult reason:: dyspnea History of Present Illness Admission Date/PCP: 08/01/16 11:05 ADRIEN GEE MD History of Present Illness: OZ KOCH is a 66 year old [facility] presented to the emergency room complains of increasing shortness of breath was also had felt to have cardiac abnormality with elevated enzymes and EKG changes he was subsequently admitted to the intensive care unit Past Medical History Cardiac Medical History: Reports: Hypertension Denies: Coronary Artery Disease, Myocardial Infarction Pulmonary Medical History: Reports: Chronic Obstructive Pulmonary Disease (COPD) Denies: Asthma, Bronchitis, Pneumonia Neurological Medical History: Denies: Seizures Malignancy Medical History: Reports: Lung Cancer Musculoskeltal Medical History: Denies: Arthritis Hematology: Denies: Anemia Social History Information Source: Patient, DrLesa Gill, [facility] Records Smoking Status: Former Smoker Passive smoke exposure as: Both Frequency of Alcohol Use: Rare Hx Recreational Drug Use: No Hx Prescription Drug Abuse: No Have you travelled outside of [place] in the past 12 months?: No Family History Family History: Reviewed & Not Pertinent Parental Family History Reviewed: Yes Children Family History Reviewed: Yes Sibling(s) Family History Reviewed.: Yes Medication/Allergy Home Medications: Aspirin [Aspirin EC] 81 mg PO DAILY 08/01/16 Fluticasone/Salmeterol [Advair 250-50 Diskus 28 dose] 1 inh IH Q12 08/01/16 Multivit-Min/FA/Lycopen/Lutein [Centrum Silver Men Tablet] 1 tab PO DAILY Simvastatin [Zocor 20 mg Tablet] 20 mg PO QHS 08/01/16 Tiotropium [place] [Spiriva Handihaler 18 mcg/dose (30 Dose)] 1 cap IH DAILY Amlodipine Besylate [Norvasc 5 mg Tablet] 5 mg PO DAILY #30 tablet 08/05/16 Levalbuterol HCl [Xopenex Neb 1.25 mg/3 ml Ampul] 1.25 mg NEB RTQ6 #120 vial.neb 08/05/16 Levofloxacin [Levaquin 500 mg Tablet] 500 mg PO DAILY #5 tablet 08/05/16 Metoprolol Tartrate [Lopressor 25 mg Tablet] 12.5 mg PO Q12 #60 tablet 08/05/16 Prednisone [Deltasone 20 mg Tablet] 20 mg PO DAILY #6 tablet 08/05/16 Allergies/Adverse Reactions: lisinopril [Lisinopril] Adverse Reaction (Severe, Verified 12/23/13 10:53) severe hypotension Physical Exam General appearance: PRESENT: cooperative, disheveled, mild distress, well- developed, well-nourished Head exam: PRESENT: atraumatic Eye exam: PRESENT: conjunctiva pale, EOMI Mouth exam: PRESENT: dry mucosa, neck supple Neck exam: PRESENT: carotid bruit Respiratory exam: PRESENT: decreased breath sounds, prolonged expiratory phas, rales, rhonchi, symmetrical, wheezes Cardiovascular exam: PRESENT: RRR, +S1, +S2 Pulses: PRESENT: normal radial pulses GI/Abdominal exam: PRESENT: normal bowel sounds, soft. ABSENT: distended, guarding, mass, organolmegaly, rebound, tenderness Rectal exam: PRESENT: deferred Gentrourinary exam: PRESENT: indwelling catheter Musculoskeletal exam: PRESENT: normal inspection Neurological exam: PRESENT: alert, awake Skin exam: PRESENT: dry, warm Results Laboratory Results: 08/01/16 11:42 08/01/16 11:42 WBC 12.7 H RBC 5.77 H Hgb 17.4 H Hct 52.5 H MCV 91 MCH 30.2 MCHC 33.1 RDW 14.9 H Plt Count 310 Seg Neutrophils % 68.8 Lymphocytes % 17.2 Monocytes % 13.3 H Eosinophils % 0.2 Basophils % 0.5 Absolute Neutrophils 8.7 H Absolute Lymphocytes 2.2 Absolute Monocytes 1.7 H Absolute Eosinophils 0.0 Absolute Basophils 0.1 Impressions: Chest X-Ray 08/01/16 00:00 IMPRESSION: COPD. CHRONIC SCARRING. NO ACUTE RADIOGRAPHIC FINDING IN THE CHEST. Assessment & Plan - Diagnosis (1) Atrial fibrillation Qualifiers: Atrial fibrillation type: unspecified Qualified Code(s): I48.91 - Unspecified atrial fibrillation Is this a current diagnosis for this admission?: YesPlan: As per cardiology (2) Hypertension Qualifiers: Hypertension type: essential hypertension Qualified Code(s): I10 - Essential (primary) hypertension Is this a current diagnosis for this admission?: YesPlan: Stable at this time (3) COPD with acute exacerbation Is this a current diagnosis for this admission?: YesPlan: Bronchodilator therapy beta agonists as well as long-acting muscarinic agents - Time Critical Time spent with patient: 35 or more minutes - 50 minute
--- NOTE | 2016-08-03 14:33 | PDOC PROGRESS REPORT ---
Subjective Progress Note for:: 08/02/16 Subjective:: Feeling a little better today Physical Exam Vital Signs: Temp Pulse Resp BP Pulse Ox 98.1 F 97 22 H 143/69 H 94 08/02/16 07:53 08/02/16 08:52 08/02/16 07:53 08/02/16 07:53 08/02/16 07:53 Pulse Oximeter Continuous Start: 08/01/16 11: 35 Freq: RTQ4 Status: Complete Document 08/01/16 16:00 [facility] (Rec: 08/01/16 18:19 [facility] [email or web address]) Pulse Oximetry Assessment Oxygen Saturation (92-100) 91 Oxygen Flow Rate (L/min) 4 Oxygen Delivery Method Nasal Cannula Equipment Usage Equipment in Use Continuous SpO2 Machine # 11 Intake & Output 08/01/16 08/02/16 08/03/16 06:59 06:59 06:59 Intake Total 670 Output Total 300 0 Balance 370 0 Weight 82.8 kg General appearance: PRESENT: no acute distress, disheveled, well-developed, well -nourished Head exam: PRESENT: atraumatic, normocephalic Eye exam: PRESENT: conjunctiva pale, EOMI Mouth exam: PRESENT: moist, neck supple Neck exam: ABSENT: carotid bruit, JVD, lymphadenopathy, thyromegaly Respiratory exam: PRESENT: decreased breath sounds, prolonged expiratory phas, rhonchi, symmetrical, unlabored, wheezes Cardiovascular exam: PRESENT: irregular rhythm Pulses: PRESENT: normal radial pulses GI/Abdominal exam: PRESENT: normal bowel sounds, soft. ABSENT: distended, guarding, mass, organolmegaly, rebound, tenderness Rectal exam: PRESENT: deferred Gentrourinary exam: PRESENT: indwelling catheter Musculoskeletal exam: PRESENT: normal inspection Neurological exam: PRESENT: alert, awake Psychiatric exam: PRESENT: normal mood Skin exam: PRESENT: dry, warm Results Laboratory Results: 08/02/16 03:43 08/02/16 03:43 08/01/16 08/01/16 08/01/16 11:42 11:42 11:50 WBC 12.7 H RBC 5.77 H Hgb 17.4 H Hct 52.5 H MCV 91 MCH 30.2 MCHC 33.1 RDW 14.9 H Plt Count 310 Seg Neutrophils % 68.8 Lymphocytes % 17.2 Monocytes % 13.3 H Eosinophils % 0.2 Basophils % 0.5 Absolute Neutrophils 8.7 H Absolute Lymphocytes 2.2 Absolute Monocytes 1.7 H Absolute Eosinophils 0.0 Absolute Basophils 0.1 Carbonic Acid 0.80 L HCO3/H2CO3 Ratio 25:1 ABG pH 7.50 H ABG pCO2 26.5 L ABG pO2 60.7 L ABG HCO3 20.2 ABG O2 Saturation 93.6 L ABG Base Excess -0.9 FiO2 2L Sodium 142.7 Potassium 4.5 Chloride 105 Carbon Dioxide 20 L Anion Gap 18 BUN 29 H Creatinine 1.37 H Est GFR ( Amer) > 60 Est GFR (Non-Af Amer) 52 L Glucose 111 H Calcium 10.6 H Magnesium Total Bilirubin 1.5 H AST 22 ALT 24 Alkaline Phosphatase 98 Total Protein 7.7 Albumin 4.5 08/01/16 08/01/16 08/02/16 12:41 22:16 03:43 WBC RBC Hgb Hct MCV MCH MCHC RDW Plt Count Seg Neutrophils % Lymphocytes % Monocytes % Eosinophils % Basophils % Absolute Neutrophils Absolute Lymphocytes Absolute Monocytes Absolute Eosinophils Absolute Basophils Carbonic Acid HCO3/H2CO3 Ratio ABG pH ABG pCO2 ABG pO2 ABG HCO3 ABG O2 Saturation ABG Base Excess FiO2 Sodium 141.9 141.2 Potassium 4.9 4.3 Chloride 105 111 H Carbon Dioxide 22 16 L Anion Gap 15 14 BUN 33 H 31 H Creatinine 1.28 H 1.03 Est GFR ( Amer) > 60 > 60 Est GFR (Non-Af Amer) 56 L > 60 Glucose 203 H 182 H Calcium 9.9 9.3 Magnesium 2.0 2.0 1.9 Total Bilirubin 0.8 AST 16 L ALT 26 Alkaline Phosphatase 69 Total Protein 5.6 L Albumin 3.4 L 08/02/16 03:43 WBC 7.1 RBC 5.01 Hgb 14.9 D Hct 45.9 MCV 92 MCH 29.7 MCHC 32.4 RDW 14.6 H Plt Count 254 Seg Neutrophils % 90.6 H Lymphocytes % 7.7 L Monocytes % 1.6 L Eosinophils % 0.0 Basophils % 0.1 Absolute Neutrophils 6.4 Absolute Lymphocytes 0.5 Absolute Monocytes 0.1 Absolute Eosinophils 0.0 Absolute Basophils 0.0 Carbonic Acid HCO3/H2CO3 Ratio ABG pH ABG pCO2 ABG pO2 ABG HCO3 ABG O2 Saturation ABG Base Excess FiO2 Sodium Potassium Chloride Carbon Dioxide Anion Gap BUN Creatinine Est GFR ( Amer) Est GFR (Non-Af Amer) Glucose Calcium Magnesium Total Bilirubin AST ALT Alkaline Phosphatase Total Protein Albumin 08/01/16 08/01/16 08/01/16 11:42 12:41 12:41 Creatine Kinase 67 CK-MB (CK-2) 1.75 Troponin I 0.049 NT-Pro-B Natriuret Pep 4600 H 08/01/16 08/01/16 08/02/16 18:45 18:45 00:46 Creatine Kinase 64 65 CK-MB (CK-2) 1.51 Troponin I 0.039 NT-Pro-B Natriuret Pep 08/02/16 00:46 Creatine Kinase CK-MB (CK-2) 1.71 Troponin I 0.035 NT-Pro-B Natriuret Pep Impressions: Chest X-Ray 08/01/16 00:00 IMPRESSION: COPD. CHRONIC SCARRING. NO ACUTE RADIOGRAPHIC FINDING IN THE CHEST. Assessment & Plan - Diagnosis (1) Atrial fibrillation Qualifiers: Atrial fibrillation type: unspecified Qualified Code(s): I48.91 - Unspecified atrial fibrillation Is this a current diagnosis for this admission?: Yes (2) COPD with acute exacerbation Is this a current diagnosis for this admission?: YesPlan: Improving continue current therapy - Time Critical Time spent with patient: 15-24 minutes
--- NOTE | 2016-08-03 14:35 | PDOC PROGRESS REPORT ---
Subjective Progress Note for:: 08/03/16 Subjective:: I feel much better now more concerned about the heart Physical Exam Vital Signs: Temp Pulse Resp BP Pulse Ox 97.5 F 90 20 141/68 H 96 08/03/16 07:52 08/03/16 07:52 08/03/16 07:52 08/03/16 07:52 08/03/16 07:52 Pulse Oximeter Continuous Start: 08/01/16 11: 35 Freq: RTQ4 Status: Complete Document 08/01/16 16:00 [facility] (Rec: 08/01/16 18:19 [facility] [email or web address]) Pulse Oximetry Assessment Oxygen Saturation (92-100) 91 Oxygen Flow Rate (L/min) 4 Oxygen Delivery Method Nasal Cannula Equipment Usage Equipment in Use Continuous SpO2 Machine # 11 Intake & Output 08/02/16 08/03/16 08/04/16 06:59 06:59 06:59 Intake Total 670 1022 Output Total 300 600 0 Balance 370 422 0 Weight 82.8 kg 83.7 kg General appearance: PRESENT: no acute distress, cooperative, well-developed, well-nourished Head exam: PRESENT: normocephalic Eye exam: PRESENT: conjunctiva pale, EOMI Mouth exam: PRESENT: moist, neck supple Neck exam: ABSENT: carotid bruit, JVD, lymphadenopathy, thyromegaly Respiratory exam: PRESENT: decreased breath sounds, prolonged expiratory phas, rhonchi, symmetrical, unlabored Cardiovascular exam: PRESENT: irregular rhythm Pulses: PRESENT: normal radial pulses GI/Abdominal exam: PRESENT: normal bowel sounds, soft. ABSENT: distended, guarding, mass, organolmegaly, rebound, tenderness Rectal exam: PRESENT: deferred Gentrourinary exam: PRESENT: indwelling catheter Musculoskeletal exam: PRESENT: normal inspection Neurological exam: PRESENT: alert, awake Psychiatric exam: PRESENT: normal mood Skin exam: PRESENT: dry, warm Results Laboratory Results: 08/03/16 03:31 08/03/16 03:31 08/02/16 08/03/16 08/03/16 11:15 03:31 03:31 WBC 12.6 H RBC 4.97 Hgb 14.8 Hct 45.2 MCV 91 MCH 29.7 MCHC 32.6 RDW 15.0 H Plt Count 277 Seg Neutrophils % Not Reportable Lymphocytes % Not Reportable Monocytes % Not Reportable Eosinophils % Not Reportable Basophils % Not Reportable Absolute Neutrophils Not Reportable Absolute Lymphocytes Not Reportable Absolute Monocytes Not Reportable Absolute Eosinophils Not Reportable Absolute Basophils Not Reportable Carbonic Acid 0.81 L HCO3/H2CO3 Ratio 25:1 ABG pH 7.50 H ABG pCO2 26.8 L ABG pO2 77.4 L ABG HCO3 20.6 ABG O2 Saturation 96.6 ABG Base Excess -0.9 FiO2 4L Sodium 144.6 Potassium 5.2 H Chloride 111 H Carbon Dioxide 23 Anion Gap 11 BUN 28 H Creatinine 0.91 Est GFR ( Amer) > 60 Est GFR (Non-Af Amer) > 60 Glucose 151 H Calcium 9.9 Magnesium 2.0 08/01/16 08/01/16 08/01/16 11:42 12:41 12:41 Creatine Kinase 67 CK-MB (CK-2) 1.75 Troponin I 0.049 NT-Pro-B Natriuret Pep 4600 H 08/01/16 08/01/16 08/02/16 18:45 18:45 00:46 Creatine Kinase 64 65 CK-MB (CK-2) 1.51 Troponin I 0.039 NT-Pro-B Natriuret Pep 08/02/16 00:46 Creatine Kinase CK-MB (CK-2) 1.71 Troponin I 0.035 NT-Pro-B Natriuret Pep Impressions: Chest X-Ray 08/03/16 07:00 IMPRESSION: No significant interval change. Assessment & Plan - Diagnosis (1) Atrial fibrillation Qualifiers: Atrial fibrillation type: unspecified Qualified Code(s): I48.91 - Unspecified atrial fibrillation Is this a current diagnosis for this admission?: Yes (2) Cardiac dysrhythmia Qualifiers: Arrhythmia type: unspecified cardiac arrhythmia Qualified Code(s): I49.9 - Cardiac arrhythmia, unspecified Is this a current diagnosis for this admission?: YesPlan: Patient may need tertiary care center (3) COPD with acute exacerbation Is this a current diagnosis for this admission?: YesPlan: At or near baseline - Time Critical Time spent with patient: 15-24 minutes
--- NOTE | 2016-08-03 19:19 | PROGRESS NOTE E ---
Progress Note NAME: OZ KOCH : 1950 AGE: 66Y DATE: 08/03/2016 ROOM: 302 SUBJECTIVE: Note the patient denies any chest pain or discomfort, and the patient most of the time is in bigeminal rhythm, but he is asymptomatic with it without feeling any palpitations. There is no cough or sputum production. There is no PND, orthopnea or leg edema. There are no palpitations, syncope, or near syncope. There are no TIA or CVA symptoms. The patient's O2 saturations are good on 4 L nasal cannula. Review of systems is negative apart from the history of present illness as mentioned earlier. Medications have been reviewed, and some of the medications have been stopped and new medications added on. This will be discussed later in the note. OBJECTIVE: GENERAL: On examination, the patient is well built and well nourished in no acute distress. VITAL SIGNS: He is afebrile with a temperature of 97.5 degrees Fahrenheit. His pulse is 90 beats per minute. Blood pressure 141/68. Respirations are 20 per minute. O2 saturations are 96% on 4 L nasal cannula. HEENT: Head is atraumatic, normocephalic. Eyes: Pupils are equal, round, regular, reactive to light and accommodation. Extraocular movements are normal. Sclerae are without any icterus. Conjunctivae normal. ENT is negative. NECK: Supple without lymphadenopathy. Trachea is central. There is no cervical or axillary lymphadenopathy. Carotids are 2+ without any bruits. JVD is within normal limits. LUNGS: There are no accessory muscles of respiration in use. There are no rhonchi, rales or wheezing. There is diminished air entry and prolonged expiration on auscultation. On percussion, there is hyperresonance. CARDIOVASCULAR SYSTEM: S1, S2 are heard. There is no S3 gallop. There is no S4 gallop. There is systolic murmur in the left sternal border and in the apex. There is no rub. ABDOMEN: Soft, nontender. There is no hepatosplenomegaly. Bowel sounds are well heard and normal. There are no masses appreciated. There is no rebound, guarding, or rigidity. EXTREMITIES: Pedal pulses are 1+ to 2+. There is no calf tenderness noted. There is no clubbing or cyanosis. There is no pedal edema. Femorals are diminished. There are no femoral bruits. There is no DVT or cellulitis. CENTRAL NERVOUS SYSTEM: The patient is conscious, awake, alert, oriented x3 with no focal deficits. PSYCHIATRIC: The patient's judgment and insight are intact. His affect is normal. SKIN: There is no ecchymosis, petechiae, rash, ulceration, or signs of pruritus noted. MUSCULOSKELETAL: No significant joint swelling noted. The patient's 24-hour intake is 1022 mL; output is 600 mL. DIAGNOSTIC TESTS: The patient's EKG shows sinus rhythm with bigeminal PVCs, right bundle branch block morphology suggesting arising from the left ventricle and not the right ventricle. There is incomplete right bundle branch block pattern *------* leads. There is borderline R-wave progression anterior leads. There is *------* repolarization abnormality which is minor in the lateral leads. The patient's chest x-ray shows no evidence of congestive heart failure. The heart size is normal. There is blunting of the left costophrenic angle, small bibasilar scar, prominent left cardiophrenic fat pad, mild emphysematous appearance of the lungs, small suture scar overlying the upper lungs. There are no infiltrates or pneumonia. The patient's sodium was 144.6. Potassium is 5.2; the patient has been given Kayexalate for this. The patient's chloride is 111. CO2 is 23. The patient's BUN is 28, creatinine 0.91. GFR is greater than 60, and his glucose is 151, and his calcium is 9.9, and his magnesium is 2.0. His ABG yesterday showed a pH of 7.50; pCO2 was 26.8; pO2 was 77.4 which is low; O2 saturations are 96.6% on 4 L nasal cannula. The patient's white count is 12,600; hemoglobin is 14.8; hematocrit is 45.2, and his platelet count is 277,000. ASSESSMENT: 1. CARDIAC DYSRHYTHMIA AND PVCs MOSTLY BIGEMINAL RHYTHM, AND MORPHOLOGY OF THE PVCs SUGGESTS THAT COMING FROM THE LEFT VENTRICLE AND NOT THE RIGHT VENTRICLE. This I have discussed with Dr. Mejia, help desk administrator at [place], [place]. He suggested that I start the patient on Ranexa which has a starting dose of 500 mg p.o. b.i.d. In view of the patient being started on Ranexa, I will stop the patient's simvastatin and change the patient to atorvastatin. He also recommended that if the patient can tolerate he would suggest starting a small dose of beta evelia. We will see how the patient does and start the patient on beta evelia tomorrow. A small dose of metoprolol 12.5 mg p.o. b.i.d. Also, Dr. Mejia is willing to see him as an outpatient. With the patient's permission, I faxed some of the records to Dr. Mejia's office along the face sheet which has the patient's telephone number. He will call and make an appointment for the patient to see him. In the meantime, after the patient gets out of the hospital, we will get a 30-day even monitor. 2. HYPERTENSION. 3. HYPERLIPIDEMIA. 4. COPD INITIALLY WITH ACUTE EXACERBATION, AT PRESENT BACK TO BASELINE. Continue albuterol and aspirin. Would recommend changing albuterol sulfate to Xopenex. Continue felodipine for blood pressure and as I discussed 250/50 1 inhalation q.12 hours and also Spiriva Handihaler. I have spoken to the patient about starting the patient on Ranexa and have stopped the simvastatin which is not compatible with Ranexa, and I have told him that I will start him on Lipitor (atorvastatin), and I have also discussed the plan with the patient to get a 30-day event monitor as an outpatient and also to see Dr. Mejia as an outpatient to see if the patient does indeed need an EP study. In the meantime, continue nasal O2. The patient should be on nasal O2 24 hours a day. Note 30 minutes spent on the patient with more than 50% of the time spent in direct patient are. His medications have been reviewed and adjusted, and some have been stopped and new medications started. I have discussed with the other caregiving providers on the case. I will give the patient my cell phone number to call me if he has any problems after discharge. We will follow up with you. Discussed with Dr. Ady Cm, the attending physician on the case. Note I have discussed with the patient the medication changes repeatedly, and the patient feels that he understands it. DICTATING PHYSICIAN: JEANETTE TENORIO M.D. [id number] PHY#: [id number] ID: [id number] JOB#: [id number] ACCT: [id number] cc: >
[2016-08-03] MEDS: ATORVASTATIN CALCIUM 20 MG TABLET PO SCH (21:07)
[2016-08-04] MEDS: LEVALBUTEROL HCL NEB 1.25 MG/3 ML AMPUL NEB SCH ×4 (02:01→19:36)
[2016-08-04] MEDS: METHYLPREDNISOLONE INJ 40 MG/1 ML SDV IV SCH (05:05)
[2016-08-04 05:13] LABS: HEMATOCRIT 43.1 % (37.9-51.0); HEMOGLOBIN 14.1 g/dL (13.5-17.0); HGB HCT DIFFERENCE -0.8; MEAN CORPUSCULAR HEMOGLOBIN 29.9 pg (27.0-33.4); MEAN CORPUSCULAR HGB CONC 32.7 g/dL (32.0-36.0); MEAN CORPUSCULAR VOLUME 91 fl (80-97); RED BLOOD COUNT 4.72 10^6/uL (4.35-5.55); RED CELL DISTRIBUTION WIDTH 14.7 % (11.5-14.0); WHITE BLOOD COUNT 14.6 10^3/uL (4.0-10.5)
[2016-08-04 05:28] LABS: ANION GAP 12 (5-19); BLOOD UREA NITROGEN 31 mg/dL (7-20); CALCIUM 8.8 mg/dL (8.4-10.2); CARBON DIOXIDE 20 mmol/L (22-30); CHLORIDE 109 mmol/L (98-107); CREATININE RESULT 0.84 mg/dL (0.52-1.25); GLUCOSE 131 mg/dL (75-110); POTASSIUM 4.2 mmol/L (3.6-5.0); SODIUM 140.6 mmol/L (137-145)
[2016-08-04 05:36] LABS: BASOPHILS % (MANUAL) 0 % (0-2); EOSINOPHILS % (MANUAL) 0 % (0-6); LYMPHOCYTES % (MANUAL) 1 % (13-45); TOTAL CELLS COUNTED 100
[2016-08-04 05:38] LABS: ANISOCYTOSIS SLIGHT; BURR CELLS SLIGHT; OVALOCYTES SLIGHT; POIKILOCYTOSIS SLIGHT; TOXIC GRANULATION SLIGHT; TOXIC VACUOLATION PRESENT
[2016-08-04] MEDS: ENOXAPARIN SODIUM INJ 40 MG/0.4 ML DISP.SYRIN SUBCUT SCH (09:05)
[2016-08-04] MEDS: AMLODIPINE BESYLATE 5 MG TABLET PO SCH (09:06)
[2016-08-04] MEDS: PREDNISONE 20 MG TABLET PO SCH (09:06)
[2016-08-04] MEDS: ASPIRIN 81 MG TABLET, ENT COATED PO SCH (09:07)
[2016-08-04] MEDS: RANOLAZINE 500 MG TAB.SR.12H PO SCH ×2 (09:08→18:28)
[2016-08-04] MEDS: DOCUSATE SODIUM 100 MG CAPSULE PO SCH ×2 (09:08→16:26)
[2016-08-04] MEDS ORDERED: METOPROLOL TARTRATE 25 MG TABLET PO ONE (10:45)
--- NOTE | 2016-08-04 10:58 | PDOC PROGRESS REPORT ---
Subjective Progress Note for:: 08/04/16 Subjective:: Patient is currently doing well patient was transferred from ICU to the [facility] and no events happens overnight. Patient's breathing is much better.As per cardiology Dr. the EP cardiology in [place] and suggest a follow as outpatient Patients denied any chest pain denied any shortness of the breath Physical Exam Vital Signs: Temp Pulse Resp BP Pulse Ox 97.3 F 53 L 16 126/78 H 93 08/04/16 07:40 08/04/16 07:49 08/04/16 07:49 08/04/16 07:40 08/04/16 07:49 Pulse Oximeter Continuous Start: 08/01/16 11: 35 Freq: RTQ4 Status: Complete Document 08/01/16 16:00 [facility] (Rec: 08/01/16 18:19 [facility] [email or web address]) Pulse Oximetry Assessment Oxygen Saturation (92-100) 91 Oxygen Flow Rate (L/min) 4 Oxygen Delivery Method Nasal Cannula Equipment Usage Equipment in Use Continuous SpO2 Machine # 11 Intake & Output 08/03/16 08/04/16 08/05/16 06:59 06:59 06:59 Intake Total 1022 752 300 Output Total 600 0 Balance 422 752 300 Weight 83.7 kg 80.8 kg General appearance: PRESENT: no acute distress, well-developed, well-nourished Head exam: PRESENT: atraumatic, normocephalic Eye exam: PRESENT: conjunctiva pink, EOMI, PERRLA. ABSENT: scleral icterus Ear exam: PRESENT: normal external ear exam Mouth exam: PRESENT: moist, tongue midline Neck exam: PRESENT: full ROM. ABSENT: carotid bruit, JVD, lymphadenopathy, thyromegaly Respiratory exam: PRESENT: clear to auscultation steven Cardiovascular exam: PRESENT: RRR. ABSENT: diastolic murmur, rubs, systolic murmur Pulses: PRESENT: normal dorsalis pedis pul, +2 pedal pulses bilateral Vascular exam: PRESENT: normal capillary refill GI/Abdominal exam: PRESENT: normal bowel sounds, soft. ABSENT: distended, guarding, mass, organolmegaly, rebound, tenderness Rectal exam: PRESENT: deferred Neurological exam: PRESENT: alert, awake, oriented to person, oriented to place , oriented to time, oriented to situation, CN II-XII grossly intact. ABSENT: motor sensory deficit Psychiatric exam: PRESENT: appropriate affect, normal mood. ABSENT: homicidal ideation, suicidal ideation Skin exam: PRESENT: dry, intact, warm. ABSENT: cyanosis, rash Results Laboratory Results: 08/04/16 04:09 08/04/16 04:09 08/04/16 08/04/16 04:09 04:09 WBC 14.6 H RBC 4.72 Hgb 14.1 Hct 43.1 MCV 91 MCH 29.9 MCHC 32.7 RDW 14.7 H Plt Count 285 Seg Neutrophils % Not Reportable Lymphocytes % Not Reportable Monocytes % Not Reportable Eosinophils % Not Reportable Basophils % Not Reportable Absolute Neutrophils Not Reportable Absolute Lymphocytes Not Reportable Absolute Monocytes Not Reportable Absolute Eosinophils Not Reportable Absolute Basophils Not Reportable Sodium 140.6 Potassium 4.2 Chloride 109 H Carbon Dioxide 20 L Anion Gap 12 BUN 31 H Creatinine 0.84 Est GFR ( Amer) > 60 Est GFR (Non-Af Amer) > 60 Glucose 131 H Calcium 8.8 08/01/16 08/01/16 08/01/16 11:42 12:41 12:41 Creatine Kinase 67 CK-MB (CK-2) 1.75 Troponin I 0.049 NT-Pro-B Natriuret Pep 4600 H 08/01/16 08/01/16 08/02/16 18:45 18:45 00:46 Creatine Kinase 64 65 CK-MB (CK-2) 1.51 Troponin I 0.039 NT-Pro-B Natriuret Pep 08/02/16 00:46 Creatine Kinase CK-MB (CK-2) 1.71 Troponin I 0.035 NT-Pro-B Natriuret Pep Assessment & Plan - Diagnosis (1) Shortness of breath Is this a current diagnosis for this admission?: YesPlan: Currently all improving as per discussed with the pulmonary will DC the IV Solu- Medrol and start on a p.o. steroid (2) COPD with acute exacerbation Is this a current diagnosis for this admission?: YesPlan: Currently all improving (3) Lung cancer Qualifiers: Lung location: unspecified part of lung Is this a current diagnosis for this admission?: YesPlan: Status post surgery and chemotherapy currently all stable patient see her Dr. Cat as outpatients (4) Atrial fibrillation Qualifiers: Atrial fibrillation type: unspecified Qualified Code(s): I48.91 - Unspecified atrial fibrillation Is this a current diagnosis for this admission?: Yes (5) Hypertension Qualifiers: Hypertension type: essential hypertension Qualified Code(s): I10 - Essential (primary) hypertension Is this a current diagnosis for this admission?: YesPlan: Currently stable (6) Hyperlipidemia Qualifiers: Hyperlipidemia type: other hyperlipidemia Qualified Code(s): E78.4 - Other hyperlipidemia Is this a current diagnosis for this admission?: Yes (7) Cardiac dysrhythmia Qualifiers: Arrhythmia type: unspecified cardiac arrhythmia Qualified Code(s): I49.9 - Cardiac arrhythmia, unspecified Is this a current diagnosis for this admission?: YesPlan: As per discussed with the cardiology currently all stableIn the cardiac standpoint patients can go homeAnd follow outpatients EP physiology the [place] - Time Time Spent with patient: 15-24 minutes Medications reviewed and adjusted accordingly: Yes Anticipated discharge: Home Within: within 24 hours - Inpatient Certification Medical Necessity: Need Close Monitoring Due to Risk of Patient Decompensation, Other Post Hospital Care: D/C Training Designer Documentation - Plan Summary Plan Summary: Will DC IV Solu-Medrol and start the p.o. steroid and a try to wean off from the oxygen. Patient usually required to a 3 L oxygen at home at night times will assist during the daytime oxygen's requirement and the patient's remained stable may be DC home tomorrow
--- NOTE | 2016-08-04 10:59 | RADIOLOGY REPORT (SQ) ---
EXAM DESCRIPTION: CHEST PA/LAT COMPLETED DATE/TIME: 08/04/2016 9:08 am REASON FOR STUDY: copd COMPARISON: CT chest 03/12/2015 Chest films 04/01/2015, 06/07/2016, 08/01/2016 EXAM PARAMETERS: NUMBER OF VIEWS: two views TECHNIQUE: Digital Frontal and Lateral radiographic views of the chest acquired. RADIATION DOSE: NA LIMITATIONS: none FINDINGS: LUNGS AND PLEURA: Chronic appearing pleuroparenchymal scarring bilaterally at the right ap ex and right and left lung bases. No acute infiltrates. No pleural effusion. No pneumothorax. No worrisome pulmonary nodules. MEDIASTINUM AND HILAR STRUCTURES: No masses or contour abnormalities. HEART AND VASCULAR STRUCTURES: Heart normal size. No evidence for failure. BONES: No acute findings. HARDWARE: None in the chest. OTHER: No other significant finding. IMPRESSION: Chronic appearing lung pleural-parenchymal scarring. No acute findings. TECHNICAL DOCUMENTATION: JOB ID: [id number] [employer]- All Rights Reserved
[2016-08-04] MEDS: LEVOFLOXACIN 500 MG/D5W RTU 500 MG/100 ML RTUPB IV SCH (11:21)
--- NOTE | 2016-08-04 14:18 | PROGRESS NOTE E ---
Progress Note NAME: OZ KOCH : 1950 AGE: 66Y DATE: 08/04/2016 ROOM: 302 SUBJECTIVE: Note that the patient denies any chest pain or discomfort. His PVC's are less, but still there are some runs of bigeminal rhythm. He is tolerating Ranexa well. He has no chest pain or discomfort. There is no PND or orthopnea. There is no cough or wheezing. There is no PND, orthopnea, or leg edema. The patient denies palpitations, dizziness, near syncope, or syncope. There are no TIA or CVA symptoms. OBJECTIVE: GENERAL: On examination, the patient is well built and well nourished, in no acute distress. VITAL SIGNS: He is afebrile with a temperature of 97.3 degrees Fahrenheit, pulse is 100 beats per minute, blood pressure is 156/78, respirations are 19 per minute with an O2 sats are 93% on 4 L nasal cannula. HEENT: Head is atraumatic, normocephalic. Eyes: Pupils are equal, round, regular, reactive to light and accommodation. Extraocular movements are normal. Sclerae are without any icterus. Conjunctivae are normal. ENT is negative. NECK: Supple without lymphadenopathy. Trachea is central. There is no cervical or axillary lymphadenopathy. Carotids are 2+ without any bruits. JVD is within normal limits. LUNGS: There are no accessory muscles of respiration in use. There are no rhonchi, rales, or wheezing. There is diminished air entry and prolonged expiration on auscultation. On percussion, there is hyperresonance. CARDIOVASCULAR SYSTEM: S1, S2 are heard. There is no S3 gallop. There is no S4 gallop. There is systolic murmur in the left sternal border and in the apex. There is no rub. ABDOMEN: Soft, nontender. There is no hepatosplenomegaly. Bowel sounds are well heard and normal. There are no masses appreciated. There is no rebound, guarding, or rigidity. EXTREMITIES: Pedal pulses are 1+ to 2+. There is no calf tenderness. There is no clubbing or cyanosis. There is no pedal edema. Femorals are diminished. There are no femoral bruits. There is no DVT or cellulitis. CENTRAL NERVOUS SYSTEM: The patient is conscious, awake, alert, oriented x3 with no focal deficits. PSYCHIATRIC: The patient's judgment and insight are intact. His affect is normal. SKIN: There is no ecchymosis, petechiae, rash, ulceration, or signs of pruritus. MUSCULOSKELETAL: No significant joint swelling. INTAKE/OUTPUT: The patient's 24-hour intake and output is not properly recorded. DIAGNOSTIC TESTS: The patient's chest x-ray shows chronic-appearing lung pleura parenchymal scarring bilaterally at the right apex and the right and left bases. There are no acute infiltrates. There are no areas of heart failure. The patient's white count is 14,600; hemoglobin is 14.1; hematocrit is 43.1; platelet count is 285,000. The patient's sodium is 140.6, potassium 4.2, chloride is 109, CO2 is 20. The patient's BUN is 31, creatinine is 0.84, GFR is greater than 60 and his calcium is 131. ASSESSMENT: 1. CARDIAC DYSRHYTHMIA AND PVCs MOSTLY BIGEMINAL RHYTHM, MUCH LESS ON RANEXA, BUT STILL PRESENT. THE MORPHOLOGY OF THE PVCs SUGGEST THAT THESE ARE COMING FROM LEFT VENTRICLE AND NOT THE RIGHT VENTRICLE. Hence, I would continue the patient on Ranexa since the patient COPD acute exacerbation has resolved and the patient is back to baseline. Will start the patient on a small dose of metoprolol 12.5 mg p.o. q. 12 hours and watch the patient closely for any untoward lung effects or bradycardia with Lopressor. This has been discussed with the patient and the other caregiving providers on the case, including the attending physician. 2. HYPERTENSION. SEEMS TO BE FAIRLY WELL CONTROLLED. 3. HYPERLIPIDEMIA. 4. COPD, BACK TO BASELINE. EARLIER THE PATIENT, ON ADMISSION, HAD ACUTE EXACERBATION OF COPD, WHICH HAS RESOLVED. RECOMMENDATIONS: Recommend changing albuterol sulfate to Xopenex. Continue felodipine for blood pressure and continue Advair Diskus 250/50 mcg inhalation q. 12 hours and also Spiriva HandiHaler. Continue aspirin. Continue Lipitor. Continue Ranexa. I will start the patient on beta evelia and watch the patient. Most likely, the patient will be able to go home tomorrow as an outpatient. I have discussed with the patient my recommendation for a 30-day event monitor. My cell phone number was given to the patient, and I will also make sure that the patient gets an appointment early with Dr. Mejia in [place]. Note 30 minutes spent on this patient with more than 50% of the time spent in direct patient care. His medications have been reviewed and new medications added. I have discussed the case with the attending physician, Dr. Ady Cm. Note this was complex medical decision making. Continue the patient's *------* the patient's frequent PVCs, although asymptomatic *------*. Will follow with you. Will see the patient in the morning and hopefully, the patient is stable and will be discharged home. DICTATING PHYSICIAN: JEANETTE TENORIO M.D. [id number] LINDA#: [id number] ID: [id number] JOB#: [id number] ACCT: [id number] cc: >
[2016-08-04] MEDS: NORMAL SALINE 1000 ML 1,000 ML IV PRN (16:26)
[2016-08-04] MEDS: ATORVASTATIN CALCIUM 20 MG TABLET PO SCH (21:43)
[2016-08-04] MEDS: METOPROLOL TARTRATE 25 MG TABLET PO SCH (21:43)
[2016-08-05] MEDS: LEVALBUTEROL HCL NEB 1.25 MG/3 ML AMPUL NEB SCH ×2 (01:38→07:43)
[2016-08-05 05:29] LABS: ANION GAP 12 (5-19); BLOOD UREA NITROGEN 36 mg/dL (7-20); CALCIUM 9.4 mg/dL (8.4-10.2); CARBON DIOXIDE 22 mmol/L (22-30); CHLORIDE 106 mmol/L (98-107); CREATININE RESULT 0.88 mg/dL (0.52-1.25); GLUCOSE 107 mg/dL (75-110); POTASSIUM 4.5 mmol/L (3.6-5.0); SODIUM 140.1 mmol/L (137-145)
[2016-08-05] MEDS: AMLODIPINE BESYLATE 5 MG TABLET PO SCH (10:06)
[2016-08-05] MEDS: METOPROLOL TARTRATE 25 MG TABLET PO SCH (10:06)
[2016-08-05] MEDS: PREDNISONE 20 MG TABLET PO SCH (10:06)
[2016-08-05] MEDS: ASPIRIN 81 MG TABLET, ENT COATED PO SCH (10:07)
[2016-08-05] MEDS: ENOXAPARIN SODIUM INJ 40 MG/0.4 ML DISP.SYRIN SUBCUT SCH (10:09)
[2016-08-05] MEDS: DOCUSATE SODIUM 100 MG CAPSULE PO SCH (10:11)
[2016-08-05] MEDS: RANOLAZINE 500 MG TAB.SR.12H PO SCH (10:11)
[2016-08-05] MEDS: LEVOFLOXACIN 500 MG/D5W RTU 500 MG/100 ML RTUPB IV SCH (12:30)
[2016-08-05 12:45] VITALS: BP 93/77
[2016-08-05] MEDS ORDERED: RANOLAZINE 500 MG TAB.SR.12H PO ONE (13:00)
--- NOTE | 2016-08-05 14:53 | DISCHARGE SUMMARY E ---
Discharge Summary NAME: OZ KOCH : 1950 AGE: 66Y ADMITTED: 08/01/2016 DISCHARGED: 08/05/2016 ADMITTING DIAGNOSES: 1. COPD with acute exacerbation. 2. Lung cancer. 3. Hypertension. 4. Hyperlipidemia. 5. Cardiac arrhythmia. DISCHARGE DIAGNOSES: 1. COPD with acute exacerbation, currently all stable. 2. Cardiac arrhythmia, most likely ventricular bigeminy, currently stable, cleared with Cardiology for an outpatient EP study. 3. Lung cancer, currently stable. 4. Hypertension. 5. Hyperlipidemia. 6. Anxiety disorder. CONSULTATIONS: Dr. Rush with Pulmonary and Dr. Mcgee from Cardiology. PROCEDURES: None. COMPLICATIONS: None. DIAGNOSTIC DATA: The patient's chest x-ray was consistent with COPD, chronic with acute exacerbation finding in the chest. The patient had labs: His WBC is 14.6, hemoglobin is 14.1, platelet is 285,000; sodium is 140, potassium is 4.5, BUN is 36, creatinine is 0.88, calcium is 9.4. The patient's cardiac enzymes are all stable. The patient's microbiology: Blood culture/urine culture is no growth. MEDICATIONS ON DISCHARGE: 1. Prednisone with a tapering dose. 2. Tylenol p.r.n. 3. Xopenex nebulizer q.6 p.r.n. 4. Metoprolol 12.5 mg p.o. twice daily. 5. Ranexa 500 mg b.i.d. 6. Colace 100 mg daily. 7. Norvasc 5 mg daily. 8. Lipitor 20 mg daily. 9. Aspirin 81 mg daily. 10. Levaquin 500 daily for 5 days. FOLLOWUP: The patient is to follow in our office in 1 week. We will repeat the CBC and chem-7. The patient is to follow with Pulmonary at a scheduled appointment. The patient is to follow with Dr. Mcgee at a scheduled appointment, to go to [place] for the manufacturing assistant, Dr. Bowen. PHYSICAL EXAMINATION: VITAL SIGNS: At discharge his blood pressure was 130/80, temperature 97.8, pulse was 82, respirations were 16, O2 saturation 100% on 2 liters per nasal cannula. The patient is already oxygen dependent at home. GENERAL: The patient is alert, awake, oriented x3. HEAD AND NECK: Normocephalic. LOUIE. LUNGS: There is no wheezing, no rales, no rhonchi. HEART: S1, S2 is present. ABDOMEN: Soft. Bowel sounds present. EXTREMITIES: No edema. NEUROLOGIC: No focal weaknesses seen. The patient walked in the hallway without any problems. The p.o. intake is good. HOSPITAL COURSE: This 66-year-old male came to my office with a complaint of shortness of breath, and the patient at this point was admitted in the hospital for further evaluation and treatment for underlying COPD. The patient was started on IV Solu-Medrol and respiratory treatments. The patient also noted to have some significant cardiac arrhythmia with a lot of PAC and ventricular bigeminy. Cardiology was consulted and the patient was sent to the intensive care unit for further close monitoring. The patient at this point had a recently echocardiogram done, according to the Cardiology was all stable. The patient otherwise had adjusted medications, and Dr. Mcgee spoke with Dr. Bowen, the manufacturing assistant in [place], and suggested follow as outpatient, no need for inpatient evaluation at this point. The patient otherwise transferred back to the [facility], remained stable. The patient otherwise walked in the hallway without any problem. The patient requires at baseline 2 or 3 liters of oxygen at home, and the patient is very anxious to go home. Discussed with the and the daughter about the patient's clinical condition and follow-up plans and *------* with Cardiology, and the patient is discharged home in stable condition and will follow as an outpatient. More than 35 minutes were spent examining the patient and reviewing the records. DICTATING PHYSICIAN: RAOUL JENKINS M.D. [id number] PHY#: [id number] ID: [id number] JOB#: [id number] ACCT: [id number] cc:RAOUL JENKINS M.D. >
--- NOTE | 2016-08-05 17:14 | PROGRESS NOTE E ---
Progress Note NAME: OZ KOCH : 1950 AGE: 66Y DATE: 08/05/2016 ROOM: 302 SUBJECTIVE: The patient denies any chest pain or discomfort. There is no PND or orthopnea or shortness of breath. There are no palpitations. There is no dizziness, near syncope, or syncope. There are no TIA or CVA symptoms. OBJECTIVE: GENERAL: On examination, the patient is well built and well nourished, at present in no acute distress. VITAL SIGNS: He is afebrile with a temperature of 97.9 degrees Fahrenheit, pulse is 82 beats per minute, blood pressure is 130/80, respirations are 16 per minute with an O2 sats are 100% on 4 L nasal cannula. HEENT: Head is atraumatic, normocephalic. Eyes: Pupils are equal, round, regular, reactive to light and accommodation. Extraocular movements are normal. There is no conjunctival pallor. Sclerae without any icterus. ENT is negative. NECK: Supple without lymphadenopathy. Trachea is central. There is no cervical or axillary lymphadenopathy. Carotids are 2+ without any bruits. JVD is within normal limits. There is no goiter. Trachea is central. LUNGS: Show diminished air entry and prolonged expiration on auscultation without any rhonchi, rales or wheezing. On percussion, there is hyperresonance. There is no chest wall tenderness. CARDIOVASCULAR SYSTEM: S1, S2 are heard. There is no S3 gallop. There is no S4 gallop. There is systolic murmur in the left sternal border and in the apex. There is no rub. ABDOMEN: Soft, nontender. There is no hepatosplenomegaly. Bowel sounds are well heard and normal. There are no masses appreciated. There is no rebound, guarding, or rigidity. EXTREMITIES: Pedal pulses are 1+ to 2+. There is no calf tenderness. There is no clubbing or cyanosis. There is no pedal edema. Femorals are slightly diminished. There are no femoral bruits. There is no DVT or cellulitis. CENTRAL NERVOUS SYSTEM: The patient is conscious, awake, alert, oriented x3 with no focal deficits. PSYCHIATRIC: The patient's judgment and insight are intact. His affect is normal. SKIN: There is no ecchymosis, petechiae, rash, ulceration, or signs of pruritus. MUSCULOSKELETAL: No joint swelling or joint redness noted. INTAKE/OUTPUT: The patient's intake and output are not accurate. DIAGNOSTIC TESTS: The patient's sodium is 140.1, potassium 4.5, chloride is 106, CO2 is 22. The patient's BUN is 36, creatinine is 0.88, GFR is greater than 60. Glucose is 107, calcium is 9.4. ASSESSMENT: 1. CARDIAC DYSRHYTHMIA WITH PVCs MOSTLY BIGEMINAL EARLIER ON; AT PRESENT WITH Ranexa AND LOPRESSOR, THE PVCs ARE MUCH LESS BUT STILL PRESENT. The patient is asymptomatic. His LV ejection fraction is normal. Will as an outpatient get a 30-day event monitor. 2. HYPERTENSION. Seems to be fairly well controlled. 3. HYPERLIPIDEMIA. 4. COPD, BACK TO BASELINE. Would recommend continuing his anti-COPD medications and also consider antibiotics for a short course of time as an outpatient. RECOMMENDATIONS: Would continue his anti-COPD inhalers and Spiriva. Continue Ranexa SR at 500 mg p.o. b.i.d. Continue Lopressor at 12.5 mg p.o. q.12 h. Will increase Lopressor as an outpatient, as discussed with the patient and with Dr. Ady Cm, the attending physician on this case. Will have the patient follow up with me for a 30-day event monitor since the patient has asked to follow up with me. With the patient's permission, his partial records have already been faxed to Dr. Erik Mejia in [facility] cardiology/EP cardiology in [place], [place]. We will have the patient see Dr. Mejia to see if any further interventions such as an AICD needs to be done or if the patient needs an electrophysiology study. All of this has been explained to the patient. Note, his medications have been reviewed thoroughly and prescription for Ranexa given to the patient since it is a cardiology prescription. TIME SPENT: Thirty-five minutes spent on this patient with more than 50% of the time spent on direct patient care. Also discussions with the patient and coordinating care with other caregivers on the case, especially the attending physician on the case. The patient is being discharged. He is stable. The patient has been given my cell phone number and also my office number. We will arrange for the patient to get a 30-day event monitor and we will see the patient as an outpatient. Still, in spite of the patient being discharged, this case involved highly complex medical decision making in view of the patient's frequent PVCs and in view of the patient's right ventricular dilatation and reduction in the right ventricular function although only there is mild tricuspid regurgitation. Thanking you. Will sign off the case and follow the patient as an outpatient. DICTATING PHYSICIAN: JEANETTE TENORIO M.D. [id number] PHY#: [id number] ID: [id number] JOB#: [id number] ACCT: [id number] cc: >
--- NOTE | 2016-08-06 07:45 | PDOC PROGRESS REPORT ---
Subjective Progress Note for:: 08/04/16 Subjective:: patient w/o complaint Physical Exam Vital Signs: Temp Pulse Resp BP Pulse Ox 97.9 F 82 16 93/77 L 100 08/05/16 12:31 08/05/16 12:31 08/05/16 12:31 08/05/16 12:31 08/05/16 12:31 Pulse Oximeter Continuous Start: 08/01/16 11: 35 Freq: RTQ4 Status: Complete Document 08/01/16 16:00 [facility] (Rec: 08/01/16 18:19 [facility] [email or web address]) Pulse Oximetry Assessment Oxygen Saturation (92-100) 91 Oxygen Flow Rate (L/min) 4 Oxygen Delivery Method Nasal Cannula Equipment Usage Equipment in Use Continuous SpO2 Machine # 11 Intake & Output 08/04/16 08/05/16 08/06/16 06:59 06:59 06:59 Intake Total 752 1 Output Total 0 Balance 752 1 Weight 80.8 kg 80.6 kg General appearance: PRESENT: no acute distress, well-developed, well-nourished Head exam: PRESENT: atraumatic, normocephalic Eye exam: PRESENT: conjunctiva pale, EOMI Mouth exam: PRESENT: moist, neck supple Neck exam: ABSENT: carotid bruit, JVD, lymphadenopathy, thyromegaly Respiratory exam: PRESENT: prolonged expiratory phas, rhonchi, symmetrical, unlabored Cardiovascular exam: PRESENT: RRR, +S1, +S2 GI/Abdominal exam: PRESENT: normal bowel sounds, soft. ABSENT: distended, guarding, mass, organolmegaly, rebound, tenderness Rectal exam: PRESENT: deferred Musculoskeletal exam: PRESENT: normal inspection Neurological exam: PRESENT: alert, awake Psychiatric exam: PRESENT: normal mood Skin exam: PRESENT: dry, warm Results Laboratory Results: 08/04/16 04:09 08/05/16 03:53 08/05/16 03:53 Sodium 140.1 Potassium 4.5 Chloride 106 Carbon Dioxide 22 Anion Gap 12 BUN 36 H Creatinine 0.88 Est GFR ( Amer) > 60 Est GFR (Non-Af Amer) > 60 Glucose 107 Calcium 9.4 08/01/16 08/01/16 08/01/16 11:42 12:41 12:41 Creatine Kinase 67 CK-MB (CK-2) 1.75 Troponin I 0.049 NT-Pro-B Natriuret Pep 4600 H 08/01/16 08/01/16 08/02/16 18:45 18:45 00:46 Creatine Kinase 64 65 CK-MB (CK-2) 1.51 Troponin I 0.039 NT-Pro-B Natriuret Pep 08/02/16 00:46 Creatine Kinase CK-MB (CK-2) 1.71 Troponin I 0.035 NT-Pro-B Natriuret Pep Impressions: Chest X-Ray 08/04/16 00:00 IMPRESSION: Chronic appearing lung pleural-parenchymal scarring. No acute findings. Assessment & Plan - Diagnosis (1) Atrial fibrillation Qualifiers: Atrial fibrillation type: unspecified Qualified Code(s): I48.91 - Unspecified atrial fibrillation Is this a current diagnosis for this admission?: YesPlan: As per cardiology will need electrophysiologic procedure (2) Cardiac dysrhythmia Qualifiers: Arrhythmia type: unspecified cardiac arrhythmia Qualified Code(s): I49.9 - Cardiac arrhythmia, unspecified Is this a current diagnosis for this admission?: Yes (3) COPD with acute exacerbation Is this a current diagnosis for this admission?: Yes
== END 2016-08-05 12:59 | disposition home or self-care (01) | DRG 191 ==
LOC: UNDOADMIN 11:05 → 4S 11:05 → ICU 21:08 → 4S 21:08 → 3N 08-03 14:31
PROVIDERS: ADMIT Family Medicine; ATTEND Family Medicine
DX: J44.1 Chronic obstructive pulmonary disease with (acute) exacerbation (principal); C34.90 Malignant neoplasm of unspecified part of unspecified bronchus or lung; I49.9 Cardiac arrhythmia, unspecified; I10 Essential (primary) hypertension; E78.5 Hyperlipidemia, unspecified; F41.1 Generalized anxiety disorder; Z79.899 Other long term (current) drug therapy; Z79.82 Long term (current) use of aspirin; Z88.8 Allergy status to other drugs, medicaments and biological substances; Z87.891 Personal history of nicotine dependence
CPT/HCPCS: 36415; 71010; 71020; 80048; 80053; 82550; 82553; 82803; 83735; 83880; 84484; 85025; 87040; 93005; 93010; 93306; 94640; 94762; J1650; J1956; J2920; J3490; J7030; J7512

== ENCOUNTER → 2016-08-17 | Outpatient (CLI) | payer MEDICARE, OTHER ==
[2016-08-17 09:43] LABS: ABSOLUTE EOSINOPHILS # (AUTO) 0.1 10^3/uL (0.0-0.6); ABSOLUTE LYMPHOCYTES (AUTO) 1.6 10^3/uL (0.5-4.7); ABSOLUTE MONOCYTES (AUTO) 1.3 10^3/uL (0.1-1.4); ABSOLUTE NEUT (AUTO) 10.4 10^3/uL (1.7-8.2); BASOPHILS % (AUTO) 0.4 % (0-2); EOSINOPHILS % (AUTO) 0.7 % (0-6); HEMATOCRIT 52.3 % (37.9-51.0); HEMOGLOBIN 17.5 g/dL (13.5-17.0); HGB HCT DIFFERENCE 0.2; LYMPHOCYTES % (AUTO) 11.6 % (13-45); MEAN CORPUSCULAR HEMOGLOBIN 30.5 pg (27.0-33.4); MEAN CORPUSCULAR HGB CONC 33.5 g/dL (32.0-36.0); MEAN CORPUSCULAR VOLUME 91 fl (80-97); MONOCYTES % (AUTO) 9.9 % (3-13); RED BLOOD COUNT 5.75 10^6/uL (4.35-5.55); RED CELL DISTRIBUTION WIDTH 15.2 % (11.5-14.0); SEGMENTED NEUTROPHILS % (AUTO) 77.4 % (42-78); WHITE BLOOD COUNT 13.4 10^3/uL (4.0-10.5)
[2016-08-17 10:15] LABS: ANION GAP 14 (5-19); BLOOD UREA NITROGEN 32 mg/dL (7-20); CARBON DIOXIDE 21 mmol/L (22-30); CHLORIDE 107 mmol/L (98-107); CREATININE RESULT 1.61 mg/dL (0.52-1.25); GLUCOSE 112 mg/dL (75-110); POTASSIUM 4.7 mmol/L (3.6-5.0); SODIUM 141.8 mmol/L (137-145)
== END ==
LOC: OD 08:48
PROVIDERS: ATTEND Physician Assistant
DX: J44.9 Chronic obstructive pulmonary disease, unspecified (principal); R94.4 Abnormal results of kidney function studies
CPT/HCPCS: 36415; 80048; 85025

== ENCOUNTER → 2017-04-24 | Outpatient (CLI) | payer MEDICARE, OTHER ==
--- NOTE | 2017-04-24 16:21 | RADIOLOGY REPORT (SQ) ---
EXAM DESCRIPTION: CHEST PA/LATERAL COMPLETED DATE/TIME: 04/24/2017 4:08 pm REASON FOR STUDY: COUGH COMPARISON: July 2016 EXAM PARAMETERS: NUMBER OF VIEWS: two views TECHNIQUE: Digital Frontal and Lateral radiographic views of the chest acquired. RADIATION DOSE: NA LIMITATIONS: none FINDINGS: LUNGS AND PLEURA: No acute consolidations or pleural effusions are identified. The previo usly described chronic pleural and parenchymal changes are again identified which appear stable. MEDIASTINUM AND HILAR STRUCTURES: No masses or contour abnormalities. HEART AND VASCULAR STRUCTURES: The configuration of the heart and mediastinal structures is unchanged BONES: No acute findings. HARDWARE: None in the chest. OTHER: No other significant finding. IMPRESSION: No significant interval change. No acute findings. Other findings as noted above TECHNICAL DOCUMENTATION: JOB ID: [id number] [employer]- All Rights Reserved Reading location - IP/workstation name: [email or web address]
== END ==
LOC: OD 15:56
PROVIDERS: ATTEND Family Medicine
DX: R05 Cough (principal)
CPT/HCPCS: 71046

== ENCOUNTER 2017-08-07 11:27 | Inpatient (IN) | payer MEDICARE, OTHER ==
[2017-08-07] MEDS ORDERED: ASPIRIN 81 MG TABLET, CHEWABLE PO ONE (11:48)
[2017-08-07 12:08] LABS: ABSOLUTE EOSINOPHILS # (AUTO) 0.1 10^3/uL (0.0-0.6); ABSOLUTE LYMPHOCYTES (AUTO) 1.6 10^3/uL (0.5-4.7); ABSOLUTE MONOCYTES (AUTO) 0.9 10^3/uL (0.1-1.4); ABSOLUTE NEUT (AUTO) 5.3 10^3/uL (1.7-8.2); BASOPHILS % (AUTO) 0.5 % (0-2); EOSINOPHILS % (AUTO) 1.2 % (0-6); HEMATOCRIT 49.4 % (37.9-51.0); HEMOGLOBIN 17.1 g/dL (13.5-17.0); LYMPHOCYTES % (AUTO) 20.4 % (13-45); MEAN CORPUSCULAR HEMOGLOBIN 32.7 pg (27.0-33.4); MEAN CORPUSCULAR HGB CONC 34.6 g/dL (32.0-36.0); MEAN CORPUSCULAR VOLUME 95 fl (80-97); MONOCYTES % (AUTO) 11.1 % (3-13); PLATELET COUNT 234 10^3/uL (150-450); RED BLOOD COUNT 5.23 10^6/uL (4.35-5.55); RED CELL DISTRIBUTION WIDTH 15.2 % (11.5-14.0); SEGMENTED NEUTROPHILS % (AUTO) 66.8 % (42-78); TOTAL CELLS COUNTED % (AUTO) 100 %; WHITE BLOOD COUNT 7.9 10^3/uL (4.0-10.5)
--- NOTE | 2017-08-07 12:13 | RADIOLOGY REPORT (SQ) ---
EXAM DESCRIPTION: CHEST SINGLE VIEW COMPLETED DATE/TIME: 08/07/2017 12:02 pm REASON FOR STUDY: cp COMPARISON: 04/24/2017 EXAM PARAMETERS: NUMBER OF VIEWS: One view. TECHNIQUE: Single frontal radiographic view of the chest acquired. RADIATION DOSE: NA LIMITATIONS: None. FINDINGS: LUNGS AND PLEURA: Extensive bullous formation and hyperinflation related to COPD. Chroni c pleural-parenchymal changes left base. Right costophrenic angle may be more obscured by density th an on previous chest x-rays. Small effusion cannot be excluded. MEDIASTINUM AND HILAR STRUCTURES: No masses. Contour normal. HEART AND VASCULAR STRUCTURES: Heart normal in size. Normal vasculature. BONES: No acute findings. HARDWARE: None in the chest. OTHER: No other significant finding. IMPRESSION: COPD. Chronic pleural-parenchymal changes left lower lung zone and left base. Possible slight obscuring the right costophrenic angle not clearly identified on previous chest x-rays and ma y represent small effusion. TECHNICAL DOCUMENTATION: JOB ID: [id number] [email or web address]- All Rights Reserved Reading location - IP/workstation name: [email or web address]
--- NOTE | 2017-08-07 12:23 | ER Document Report ---
ED General - General Chief Complaint: Chest Pain Stated Complaint: CHEST PAIN Time Seen by Provider: 08/07/17 12:11 Mode of Arrival: Ambulatory Information source: Patient Notes: This is a 67-year-old man with a history of COPD (oxygen at night), PE/DVT (on Eliquis) who presents to the emergency room with sharp stabbing left-sided, nonradiating chest pain lasting 45 minutes. Patient states the pain is currently gone. He says it was spontaneously resolved. TRAVEL OUTSIDE OF THE [place] IN LAST 30 DAYS: No - HPI Onset: Just prior to arrival Onset/Duration: Gradual Quality of pain: Sharp, Stabbing Severity: Moderate Pain Level: 2 Associated symptoms: Chest pain. denies: Fever, Shortness of breath Exacerbated by: Denies Relieved by: Denies Similar symptoms previously: Yes Recently seen / treated by doctor: Yes - Related Data Allergies/Adverse Reactions: lisinopril [Lisinopril] Adverse Reaction (Severe, Verified 08/07/17 11:28) severe hypotension Past Medical History - General Information source: Patient - Social History Smoking Status: Former Smoker Cigarette use (# per day): No Chew tobacco use (# tins/day): No Frequency of alcohol use: Rare Drug Abuse: None Lives with: Family Family History: Reviewed & Not Pertinent Patient has suicidal ideation: No Patient has homicidal ideation: No - Past Medical History Cardiac Medical History: Reports: Hx Hypertension Denies: Hx Coronary Artery Disease, Hx Heart Attack Pulmonary Medical History: Reports: Hx COPD Denies: Hx Asthma, Hx Bronchitis, Hx Pneumonia Neurological Medical History: Reports: Hx Cerebrovascular Accident - 5 CVA, 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 Denies: Hx Seizures Renal/ Medical History: Reports: Hx Kidney Stones. Denies: Hx Peritoneal Dialysis Malignancy Medical History: Reports Hx Lung Cancer Musculoskeltal Medical History: Denies Hx Arthritis Past Surgical History: Reports: Other - Lung lobe resections - Immunizations Hx Diphtheria, Pertussis, Tetanus Vaccination: Yes Hx Pneumococcal Vaccination: 01/30/15 Review of Systems - Review of Systems Constitutional: denies: Chills, Fever EENT: No symptoms reported Cardiovascular: See HPI Respiratory: No symptoms reported Gastrointestinal: No symptoms reported Genitourinary: No symptoms reported Male Genitourinary: No symptoms reported Musculoskeletal: No symptoms reported Skin: No symptoms reported Hematologic/Lymphatic: No symptoms reported Neurological/Psychological: No symptoms reported Physical Exam - Vital signs Vitals: Pulse Resp BP Pulse Ox 119 H 20 122/76 88 L 08/07/17 11:42 08/07/17 11:42 08/07/17 11:42 08/07/17 11:42 Notes: Physical exam: GENERAL: 67-year-old man, alert and oriented 3, no acute distress, blood pressure 135/68, pulse 86, O2 sat 93% on room air, respiratory rate 25. HEAD: Atraumatic, normocephalic. EYES: Pupils equal round and reactive to light, extraocular movements intact, sclera anicteric, conjunctiva are normal. ENT: TMs normal, nares patent, oropharynx clear without exudates. Moist mucous membranes. NECK: Normal range of motion, supple without obvious mass or JVD. LUNGS: Breath sounds clear to auscultation bilaterally and equal. No wheezes rales or rhonchi. HEART: Regular rate and rhythm without murmurs, rubs or gallops. ABDOMEN: Soft, normoactive bowel sounds. No tenderness to palpation. No guarding, no rebound. No masses appreciated. EXTREMITIES: Normal range of motion, no pitting or edema. No clubbing or cyanosis. NEUROLOGICAL: Cranial nerves II through XII grossly intact. Normal speech, moving all extremities. PSYCH: Normal mood, normal affect. SKIN: Warm, Dry, normal turgor, no rashes or lesions noted. Course - Vital Signs Vital signs: Temp Pulse Resp BP Pulse Ox 119 H 15 124/84 93 08/07/17 11:42 08/07/17 17:00 08/07/17 16:01 08/07/17 16:01 - Laboratory Result Diagrams: 08/07/17 11:52 08/07/17 11:52 Laboratory results interpreted by me: 08/07/17 08/07/17 11:52 11:52 Hgb 17.1 H RDW 15.2 H BUN 29 H - Diagnostic Test Radiology reviewed: Image reviewed, Reports reviewed - Reinspector with COPD - EKG Interpretation by Me Rate: Normal Rhythm: NSR - EKG shows sinus arrhythmia with a ventricular rate of 75, there is slight ST depressions V5 and V6, there is PVC, Critical Care Note - Critical Care Note Total time excluding time spent on procedures (mins): 60 Discharge - Discharge Clinical Impression: Chest pain, Pulmonary embolus Condition: Stable Disposition: ADMITTED INPATIENT Admitting Provider: Cm Unit Admitted: Telemetry
[2017-08-07 12:27] LABS: ALANINE AMINOTRANSFERASE 31 U/L (21-72); ALBUMIN 4.5 g/dL (3.5-5.0); ALKALINE PHOSPHATASE 70 U/L (38-126); ANION GAP 10 (5-19); ASPARTATE AMINO TRANSFERASE 30 U/L (17-59); BILIRUBIN,DIRECT 0.4 mg/dL (0.0-0.4); BILIRUBIN,TOTAL 1.2 mg/dL (0.2-1.3); BLOOD UREA NITROGEN 29 mg/dL (7-20); CARBON DIOXIDE 24 mmol/L (22-30); CHLORIDE 107 mmol/L (98-107); CREATINE KINASE 69 U/L (55-170); GLUCOSE 95 mg/dL (75-110); POTASSIUM 4.3 mmol/L (3.6-5.0); SODIUM 141.4 mmol/L (137-145); TOTAL PROTEIN 7.1 g/dL (6.3-8.2)
[2017-08-07 12:40] LABS: CREATINE KINASE MB 3.43 ng/mL (<4.55); TROPONIN I < 0.012 ng/mL
--- NOTE | 2017-08-07 15:05 | RADIOLOGY REPORT (SQ) ---
EXAM DESCRIPTION: CTA CHEST COMPLETED DATE/TIME: 08/07/2017 2:43 pm REASON FOR STUDY: cp COMPARISON: CT angio chest 12/20/2016, 05/22/2014 TECHNIQUE: CT scan of the chest performed using helical scanning technique with dynamic intravenous contrast injection. Images reviewed with lung, soft tissue and bone windows. Reconstructed coronal and sagittal MPR images reviewed. Additional 3 dimensional post-processing performed to develop Maximal Intensity Projection images (IN P). All images stored on PACS. All CT scanners at this facility use dose modulation, iterative reconstruction, and/or weight based d osing when appropriate to reduce radiation dose to as low as reasonably achievable (ALARA). [facility]: Dose Right [facility]: CareDose [facility]: Dose Right [facility]: Teradose 4D [facility]: Smart VOLITIONRX CONTRAST TYPE AND DOSE: contrast/concentration: Isovue 370.00 mg/ml; Total Contrast Delivered: 71.0 ml; Total Saline Delivered: 90.0 ml Contrast bolus optimized for the pulmonary arteries. Not diagnostic for the aorta. RENAL FUNCTION: Creatinine 1.2 RADIATION DOSE: CT Rad equipment meets quality standard of care and radiation dose reduction techniq ues were employed. CTDIvol: 15.4 - 19.8 mGy. DLP: 640 mGy-cm. . LIMITATIONS: None. FINDINGS: LUNGS AND PLEURA: Advanced obstructive lung disease is present bilaterally. Row of surgic al jayden at the right lung apex and medial left upper lobe. No acute infiltrates. No pleural effu mabel. No pneumothorax. AORTA AND GREAT VESSELS: No aneurysm. Contrast bolus not optimized for the aorta. HEART: No pericardial effusion. No significant coronary artery calcifications. PULMONARY ARTERIES: Patient had massive pulmonary emboli on CT angio chest 12/20/2016. Since that fady e, clot in the proximal right and left pulmonary arteries and superior edge of the main pulmonary art maria esther has partially calcified and decreased in size, adherent to the hensley of the vessels on coronal re construction images 28 through 41. 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 There is contrast enhancement of the anterior basal segmental pulmonary artery in the right lower lobe. Right middle lobe segmental pulmonary arteries are patent. Patient is post right upper lobectomy. On the left side, upper lobe pulmonary artery is are free of clot. Chronic adherent clot to the wall of the distal left main pulmonary artery unchanged from CT angio 12/20/2016. There is a small acute clot in the left lower lobe segmental pulmonary artery to the medial basal seg ment best shown on axial images 70 through 77, the other left lower lobe pulmonary arteries enhance n ormally. HILAR AND MEDIASTINAL STRUCTURES: No identified masses or abnormal nodes. Old right upper lobectomy HARDWARE: None in the chest. UPPER ABDOMEN: No significant findings. Limited exam. THYROID AND OTHER SOFT TISSUES: No masses. No adenopathy. BONES: No acute or significant finding. 3D MIPS: Confirm above findings. OTHER: No other significant finding. IMPRESSION: Small acute clot to these left lower lobe medial basal segment pulmonary artery. This w as discussed with Dr. Sauceda in the emergency room. Incomplete resolution of the pulmonary emboli seen 12/20/2016, with partially calcified shrunken clot adherent to the hensley of the central pulmonary arteries as above. 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
[2017-08-07] MEDS ORDERED: ENOXAPARIN SODIUM INJ 100 MG/1 ML DISP.SYRIN SUBCUT ONE (15:59)
[2017-08-07] MEDS ORDERED: ACETAMINOPHEN 325 MG TABLET PO PRN (16:39)
--- NOTE | 2017-08-07 17:21 | PDOC H&P ---
History of Present Illness Admission Date/PCP: RAOUL JENKINS MD Patient complains of: Chest pain History of Present Illness: OZ KOCH is a 67 year old male This is a 67 -year-old male with a significant history of the extensive right- sided pulmonary embolism with the right-sided heart failure and history of the lung cancers and a severe end-stage COPDCurrently on Eliquis 5 mg p.o. twice a day and [facility] associateCame to the emergency department with a complaint of chest pain on the left side with the stabbing for 45 minutes and then patients call the office and directed to the emergency department and emergency department patient's initial workup with the EKG and cardiac enzyme was also normalBut patient CT angiogram persistent with the right side of the blood clot was decreasing in the size but also from some left- sided new blood clot Patient's chest pain is pretty much all resolved but even the patient had with this chest pain is to be admitted in the hospital for further rule out and consult the cardiology and hematology's for further evaluations Patient's continues to take the Eliquis as prescribed Patient's denied any short of breath Patients have ongoing chronic cough Patient's denied any blood in the stools no black stools Patient's recently started working in the yard but denied any other unusual symptoms Past Medical History Cardiac Medical History: Reports: Congestive Heart Failure, Hypertension Denies: Coronary Artery Disease, Myocardial Infarction Pulmonary Medical History: Reports: Chronic Obstructive Pulmonary Disease (COPD) Denies: Asthma, Bronchitis, Pneumonia Neurological Medical History: Denies: Seizures Malignancy Medical History: Reports: Lung Cancer Musculoskeltal Medical History: Denies: Arthritis Psychiatric Medical History: Reports: General Anxiety Disorder Hematology: Denies: Anemia Past Surgical History Past Surgical History: Reports: Other - Lung lobe resections Social History Smoking Status: Former Smoker Frequency of Alcohol Use: Rare Hx Recreational Drug Use: No Drugs: None Hx Prescription Drug Abuse: No Family History Family History: Reviewed & Not Pertinent Parental Family History Reviewed: Yes Children Family History Reviewed: Yes Sibling(s) Family History Reviewed.: Yes Medication/Allergy Home Medications: Amlodipine Besylate [Norvasc 5 mg Tablet] 5 mg PO DAILY 12/20/16 Aspirin [Aspirin 81 mg Chewable Tablet] 81 mg PO DAILY 12/20/16 Azithromycin [Zithromax 250 mg Tablet] 250 mg PO DAILY 12/20/16 Fluticasone/Salmeterol [Advair 250-50 Diskus 28 dose] 1 inh IH Q12 12/20/16 Furosemide [Lasix] 10 mg PO DAILY 12/20/16 Levalbuterol HCl [Xopenex Neb 1.25 mg/3 ml Ampul] 1.25 mg NEB RTQ8 12/20/16 Metoprolol Tartrate [Lopressor 25 mg Tablet] 12.5 mg PO Q12 12/20/16 Tiotropium [place] [Spiriva Handihaler 18 mcg/dose (30 Dose)] 1 cap IH DAILY 03/07 Allergies/Adverse Reactions: lisinopril [Lisinopril] Adverse Reaction (Severe, Verified 08/07/17 11:28) severe hypotension Review of Systems Constitutional: ABSENT: chills, fever(s), headache(s), weight gain, weight loss Eyes: ABSENT: visual disturbances Ears: ABSENT: hearing changes Cardiovascular: PRESENT: chest pain. ABSENT: dyspnea on exertion, edema, orthropnea, palpitations Respiratory: ABSENT: cough, hemoptysis Gastrointestinal: ABSENT: abdominal pain, constipation, diarrhea, hematemesis, hematochezia, nausea, vomiting Genitourinary: ABSENT: dysuria, hematuria Musculoskeletal: ABSENT: joint swelling Integumentary: ABSENT: rash, wounds Neurological: ABSENT: abnormal gait, abnormal speech, confusion, dizziness, focal weakness, syncope Psychiatric: ABSENT: anxiety, depression, homidical ideation, suicidal ideation Endocrine: ABSENT: cold intolerance, heat intolerance, menstrual abnormalities, polydipsia, polyuria Hematologic/Lymphatic: ABSENT: easy bleeding, easy bruising, lymphadenopathy Physical Exam Vital Signs: Temp Pulse Resp BP Pulse Ox 119 H 23 H 127/70 H 96 08/07/17 11:42 08/07/17 14:01 08/07/17 14:01 08/07/17 14:00 Intake & Output 08/06/17 08/07/17 08/08/17 06:59 06:59 06:59 Weight 78.6 kg General appearance: PRESENT: no acute distress, well-developed, well-nourished Head exam: PRESENT: atraumatic, normocephalic Eye exam: PRESENT: conjunctiva pink, EOMI, PERRLA. ABSENT: scleral icterus Ear exam: PRESENT: normal external ear exam Mouth exam: PRESENT: moist, tongue midline Neck exam: PRESENT: full ROM. ABSENT: carotid bruit, JVD, lymphadenopathy, thyromegaly Respiratory exam: PRESENT: clear to auscultation steven Cardiovascular exam: PRESENT: RRR. ABSENT: diastolic murmur, rubs, systolic murmur Pulses: PRESENT: normal dorsalis pedis pul, +2 pedal pulses bilateral Vascular exam: PRESENT: normal capillary refill GI/Abdominal exam: PRESENT: normal bowel sounds, soft. ABSENT: distended, guarding, mass, organolmegaly, rebound, tenderness Rectal exam: PRESENT: deferred Extremities exam: ABSENT: pedal edema Musculoskeletal exam: PRESENT: ambulatory Neurological exam: PRESENT: alert, awake, oriented to person, oriented to place , oriented to time, oriented to situation, CN II-XII grossly intact. ABSENT: motor sensory deficit Psychiatric exam: PRESENT: appropriate affect, normal mood. ABSENT: homicidal ideation, suicidal ideation Skin exam: PRESENT: dry, intact, warm. ABSENT: cyanosis, rash Results Laboratory Results: 08/07/17 11:52 08/07/17 11:52 08/07/17 08/07/17 11:52 11:52 WBC 7.9 RBC 5.23 Hgb 17.1 H Hct 49.4 MCV 95 MCH 32.7 MCHC 34.6 RDW 15.2 H Plt Count 234 Seg Neutrophils % 66.8 Lymphocytes % 20.4 Monocytes % 11.1 Eosinophils % 1.2 Basophils % 0.5 Absolute Neutrophils 5.3 Absolute Lymphocytes 1.6 Absolute Monocytes 0.9 Absolute Eosinophils 0.1 Absolute Basophils 0.0 Sodium 141.4 Potassium 4.3 Chloride 107 Carbon Dioxide 24 Anion Gap 10 BUN 29 H Creatinine 1.19 Est GFR ( Amer) > 60 Est GFR (Non-Af Amer) > 60 Glucose 95 Calcium 10.0 Total Bilirubin 1.2 AST 30 ALT 31 Alkaline Phosphatase 70 Total Protein 7.1 Albumin 4.5 08/07/17 08/07/17 11:52 11:52 Creatine Kinase 69 CK-MB (CK-2) 3.43 Troponin I < 0.012 Impressions: Chest X-Ray 08/07/17 11:48 IMPRESSION: COPD. Chronic pleural-parenchymal changes left lower lung zone and left base. Possible slight obscuring the right costophrenic angle not clearly identified on previous chest x-rays and may represent small effusion. Chest/Abdomen CTA 08/07/17 14:02 IMPRESSION: Small acute clot to these left lower lobe medial basal segment pulmonary artery. This was discussed with Dr. Sauceda in the emergency room. Incomplete resolution of the pulmonary emboli seen 12/20/2016, with partially calcified shrunken clot adherent to the hensley of the central pulmonary arteries as above. 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 Assessment & Plan - Diagnosis (1) Chest pain Is this a current diagnosis for this admission?: Yes Plan: Possible the new set left-sided blood clot versus underlying coronary disease Will start the patient on the Lovenox therapy currently hold the Eliquis consult the hematology Do the serial cardiac enzyme and consult the cardiology (2) Congestive heart failure Qualifiers: Heart failure type: right-sided Heart failure chronicity: chronic Qualified Code(s): I50.812 - Chronic right heart failure Is this a current diagnosis for this admission?: Yes Plan: Due to the recent's massive right-sided pulmonary embolism currently on the Lasix (3) Chronic obstructive pulmonary disease Qualifiers: COPD type: unspecified COPD Qualified Code(s): J44.9 - Chronic obstructive pulmonary disease, unspecified Is this a current diagnosis for this admission?: Yes Plan: Continues to DuoNeb nebulizer (4) Cardiac dysrhythmia Qualifiers: Arrhythmia type: atrial fibrillation Is this a current diagnosis for this admission?: Yes Plan: Patient is currently see a [place] [facility] (5) Hyperlipidemia Qualifiers: Hyperlipidemia type: unspecified Qualified Code(s): E78.5 - Hyperlipidemia , unspecified Is this a current diagnosis for this admission?: Yes Plan: Currently all stable (6) Lung cancer Qualifiers: Lung location: unspecified part of lung Is this a current diagnosis for this admission?: Yes Plan: Status post surgery (7) Pulmonary embolism Qualifiers: Chronicity: chronic Is this a current diagnosis for this admission?: Yes Plan: Will continues to Lovenox currently see the medical superintendent for further evaluation while patient is already on Eliquis and questionable left-sided blood clot which is new from the previous CT scan - Time Time Spent: 50 to 70 Minutes Medications reviewed and adjusted accordingly: Yes Anticipated discharge: Home Within: Other - Inpatient Certification Medical Necessity: Need Close Monitoring Due to Risk of Patient Decompensation Post Hospital Care: D/C Animal Chiropractor Documentation - Plan Summary Plan Summary: Admit the patient in IMCU see other MD orders
[2017-08-07] MEDS: LANSOPRAZOLE 15 MG TAB.RAP.DR PO SCH (18:54)
--- NOTE | 2017-08-07 20:05 | PDOC CONSULTATION ---
Consultation Consult Date: 08/07/17 Attending physician:: RAOUL JENKINS Consult reason:: Chest pain History of Present Illness Admission Date/PCP: 08/07/17 18:05 RAOUL JENKINS MD Patient complains of: Chest pain History of Present Illness: OZ KOCH is a 67 year old male with a significant history of the extensive right-sided pulmonary embolism with the right-sided heart failure and history of the lung cancers and a severe end-stage COPD, currently on Eliquis 5 mg p.o. twice a day and also see a [facility] heart associate, came to the emergency department with a complaint of chest pain on the left side with the stabbing for 45 minutes and then patients call the office and directed to the emergency department and emergency department patient's initial workup with the EKG and cardiac enzyme was also normal. But patient CT angiogram persistent with the right side of the blood clot was decreasing in the size but also from some left- sided new blood clot Patient's chest pain is pretty much all resolved but even the patient had with this chest pain is to be admitted in the hospital for further rule out and consult the cardiology and hematology's for further evaluations Patient's continues to take the Eliquis as prescribed Patient's denied any short of breath Patients have ongoing chronic cough Patient's denied any blood in the stools no black stools Patient's recently started working in the yard but denied any other unusual symptoms. This history obtained by the physician assistant primary care was reviewed and confirmed with the patient. Patient denied any prior history of myocardial infarction or angina coronary artery disease. Patient does have a history of CHF, right- sided. Patient remained symptoms his chronic shortness of breath. Past Medical History Cardiac Medical History: Reports: Congestive Heart Failure, Hypertension Denies: Coronary Artery Disease, Myocardial Infarction Pulmonary Medical History: Reports: Chronic Obstructive Pulmonary Disease (COPD) Denies: Asthma, Bronchitis, Pneumonia Neurological Medical History: Denies: Seizures Malignancy Medical History: Reports: Lung Cancer Musculoskeltal Medical History: Denies: Arthritis Psychiatric Medical History: Reports: General Anxiety Disorder Hematology: Denies: Anemia Past Surgical History Past Surgical History: Reports: Other - Lung lobe resections Social History Information Source: Patient Lives with: Family Smoking Status: Former Smoker Frequency of Alcohol Use: Rare Hx Recreational Drug Use: No Drugs: None Hx Prescription Drug Abuse: No - Advance Directive Resuscitation Status: Full Code Surrogate healthcare decision maker:: Patient's is the surrogate decision-maker Family History Family History: Reviewed & Not Pertinent Parental Family History Reviewed: Yes Children Family History Reviewed: Yes Sibling(s) Family History Reviewed.: Yes Medication/Allergy Home Medications: Fluticasone/Salmeterol [Advair 250-50 Diskus 14 Dose/Diskus] 1 inh IH Q12 Furosemide [Lasix 20 mg Tablet] 20 mg PO Q8 08/07/17 Levalbuterol HCl [Xopenex Neb 1.25 mg/3 ml Ampul] 1.25 mg NEB RTQ12 08/07/17 Losartan Potassium [Cozaar 25 mg Tablet] 12.5 mg PO DAILY 08/07/17 Metoprolol Tartrate [Lopressor 25 mg Tablet] 12.5 mg PO Q12 08/07/17 Tamsulosin HCl [Flomax 0.4 mg Cap.sr] 0.4 mg PO DAILY 08/07/17 Tiotropium Apollo [Spiriva Handihaler 5 Cap/Kit (18 Mcg/Cap)] 1 cap IH DAILY Allergies/Adverse Reactions: lisinopril [Lisinopril] Adverse Reaction (Severe, Verified 08/07/17 11:28) severe hypotension Review of Systems Review of Systems: Please see history of present illness and past medical history as wall. Constitutional: No fever or chills reported. Head : No recent chronic headaches, recent head injury. Eyes: No recent eye pain, diplopia, redness, discharge, acute visual changes. Ears: No recent chronic ear pain, acute hearing loss, ear discharge. Oral cavity: No recent ulcerations, bleeding, oral cavity discomfort. Neck: No recent acute neck pain reported. Hematologic: No recent easy bruising or bleeding. Lymphatic: No recent lymph node enlargement reported. Cardiovascular system review: See history of present illness. Respiratory system review: No hemoptysis or blood clots in the lungs reported. Shortness of breath on exertion Gastrointestinal system review: Negative for any recent acute hematemesis, melena. Genitourinary system review: No recent acute or chronic hematuria, flank pain, UTI etc. reported. Skin system review: Negative for any recent abnormal bruising, no rash, no pruritus reported. Neurologic: No prior history of strokes, mini strokes, seizure disorder. Psychologic: No history of major psychosis or major depression reported. Musculoskeletal: Minor aches and pains reported. No acute joint swelling reported. Endocrine: No recent polyuria, polydipsia, recent heat or cold intolerance. Patient gives history of lung cancer currently in remission for last 8 years. Physical Exam Vital Signs: Temp Pulse Resp BP Pulse Ox 119 H 22 H 137/118 H 93 08/07/17 11:42 08/07/17 19:03 08/07/17 18:55 08/07/17 16:01 Exam: GENERAL: well-nourished and in no acute distress. Alert and oriented x3 HEAD: Atraumatic, normocephalic. EYES: Pupils equal round and reactive to light, extraocular movements intact, sclera anicteric, conjunctiva are normal. ENT: TMs normal, nares patent, oropharynx clear without exudates. Moist mucous membranes. No oral ulcerations or bleeding gums noted NECK: supple without lymphadenopathy. Trachea is central. No cervical or axillary lymphadenopathy noted. Carotids are 2+, JVD WNL LUNGS: Respiration seems nonlabored, no significant accessory muscle action noted. Breath sounds clear to auscultation bilaterally and equal noted. No wheezes rales or rhonchi noted. No significant dullness noted on percussion. CHEST: Palpation of the chest wall shows no significant chest wall tenderness. HEART: [place] [employer], No PSH, 1/6 LISANDRO aortic area, 1/6 valentine systolic murmur mitral area, no rubs, no gallops. ABDOMEN: Soft, no significant tenderness appreciated, normoactive bowel sounds. No guarding, no rebound. No rigidity noted . No masses appreciated. EXTREMITIES: Pedal pulses are 1-2+, no calf tenderness noted. No clubbing or cyanosis. negative pedal edema noted NEUROLOGICAL: Focused neurological exam showed no significant neurologic deficit. Normal speech, no focal weakness appreciated. PSYCH: Normal mood, normal affect. Judgment and insight within normal limits. SKIN: No significant ecchymosis, skin is noted to be warm. MUSCULOSKELETAL EXAM: No significant acute joint swelling noted. Results EKG Comments: Shows sinus rhythm, frequent PVCs and nonspecific ST segment changes. Impressions: Chest X-Ray 08/07/17 11:48 IMPRESSION: COPD. Chronic pleural-parenchymal changes left lower lung zone and left base. Possible slight obscuring the right costophrenic angle not clearly identified on previous chest x-rays and may represent small effusion. Chest/Abdomen CTA 08/07/17 14:02 IMPRESSION: Small acute clot to these left lower lobe medial basal segment pulmonary artery. This was discussed with Dr. Sauceda in the emergency room. Incomplete resolution of the pulmonary emboli seen 12/20/2016, with partially calcified shrunken clot adherent to the hensley of the central pulmonary arteries as above. 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 Assessment & Plan - Diagnosis (1) Chest pain Qualifiers: Chest pain type: unspecified Qualified Code(s): R07.9 - Chest pain, unspecified Is this a current diagnosis for this admission?: Yes (2) Chronic obstructive pulmonary disease Qualifiers: COPD type: unspecified COPD Qualified Code(s): J44.9 - Chronic obstructive pulmonary disease, unspecified Is this a current diagnosis for this admission?: Yes (3) Congestive heart failure Qualifiers: Heart failure type: right-sided Heart failure chronicity: chronic Qualified Code(s): I50.812 - Chronic right heart failure Is this a current diagnosis for this admission?: Yes (4) Hyperlipidemia Qualifiers: Hyperlipidemia type: unspecified Qualified Code(s): E78.5 - Hyperlipidemia , unspecified Is this a current diagnosis for this admission?: Yes (5) Lung cancer Qualifiers: Lung location: unspecified part of lung Is this a current diagnosis for this admission?: Yes (6) Pulmonary embolism Qualifiers: Pulmonary embolism type: other Chronicity: chronic Is this a current diagnosis for this admission?: Yes (7) Shortness of breath Is this a current diagnosis for this admission?: Yes - Notes Notes: Chest pain: Possibly related to pulmonary embolism, pulmonary hypertension. Cannot rule out underlying CAD. At this point will obtain a 2D echo, monitor which EKGs, cardiac enzymes. Will consider a stress test later on. COPD: Patient claims this is a significant problem. Continue with bronchodilator and steroid therapy as needed. CHF: Patient gives history of right-sided CHF. However currently on exam seems compensated. Dyslipidemia: Continue statin therapy. History of lung cancer: Currently in remission. This is what is reported by the patient. Patient may need further evaluation from oncologist as patient is still having problems with thromboembolic phenomenon. Pulmonary embolism: Patient has history of recurrent pulmonary embolism. May need to consider hematology opinion. Shortness of breath: Combination of COPD, lung cancer surgery and pulmonary embolism. 2D echo will be helpful. - Time Time Spent: 30 to 50 Minutes - CODE STATUS was discussed, patient remains full code. Surrogate decision-maker patient's . Multiple medical problems were addressed. More than 50% of the time spent coordinating care, discussing management plans with involved caregivers. Management plans discussed with involved personnels. Medical decision making was of moderate to high complexity , patient's has multiple comorbidities. Medications reviewed and adjusted accordingly: Yes
[2017-08-07] MEDS: IPRATROPIUM/ALBUTEROL 0.5-2.5 MG/3 ML AMPUL NEB SCH (21:03)
[2017-08-07] MEDS: ENOXAPARIN SODIUM INJ 80 MG/0.8 ML DISP.SYRIN SUBCUT SCH (21:34)
--- NOTE | 2017-08-07 22:50 | EKG REPORT ---
SEVERITY:- ABNORMAL ECG - SINUS RHYTHM PROBABLE LEFT ATRIAL ABNORMALITY INCOMPLETE RIGHT BUNDLE BRANCH BLOCK ABNRM R PROG, CONSIDER ASMI OR LEAD PLACEMENT : Confirmed by: Debby Yepez 07-Aug-2017 22:49:17
[2017-08-07 23:13] LABS: CREATINE KINASE MB 3.22 ng/mL (<4.55); TROPONIN I 0.012 ng/mL
[2017-08-08] MEDS: IPRATROPIUM/ALBUTEROL 0.5-2.5 MG/3 ML AMPUL NEB SCH ×4 (02:17→19:56)
[2017-08-08 05:21] LABS: HEMATOCRIT 46.3 % (37.9-51.0); HEMOGLOBIN 16.1 g/dL (13.5-17.0); MEAN CORPUSCULAR HEMOGLOBIN 32.8 pg (27.0-33.4); MEAN CORPUSCULAR HGB CONC 34.8 g/dL (32.0-36.0); MEAN CORPUSCULAR VOLUME 94 fl (80-97); PLATELET COUNT 205 10^3/uL (150-450); RED BLOOD COUNT 4.91 10^6/uL (4.35-5.55); RED CELL DISTRIBUTION WIDTH 15.2 % (11.5-14.0); WHITE BLOOD COUNT 6.8 10^3/uL (4.0-10.5)
[2017-08-08 05:44] LABS: ANION GAP 8 (5-19); BLOOD UREA NITROGEN 29 mg/dL (7-20); CALCIUM 9.6 mg/dL (8.4-10.2); CARBON DIOXIDE 23 mmol/L (22-30); CHLORIDE 111 mmol/L (98-107); CREATINE KINASE 56 U/L (55-170); GLUCOSE 97 mg/dL (75-110); POTASSIUM 3.9 mmol/L (3.6-5.0); SODIUM 142.4 mmol/L (137-145)
[2017-08-08 05:55] LABS: CREATINE KINASE MB 2.69 ng/mL (<4.55); TROPONIN I 0.017 ng/mL
[2017-08-08] MEDS: LANSOPRAZOLE 15 MG TAB.RAP.DR PO SCH ×2 (06:01→18:50)
--- NOTE | 2017-08-08 08:44 | PDOC CONSULTATION ---
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 Apparently his lawn julio cesar also quit so he has been having the mow his lawn on the last few weeks also. About 1 week into this increased physical activity started having left-sided chest pain, apparently only in the morning, that resolved by the afternoon, the last 3 days prior to admission the chest pain was worsening and becoming more severe, he called Dr. Cm's office, was instructed to come to the ED for a cardiac workup. He did have EKG which did not show any changes, had 3 sets of cardiac markers thus far that were negative. CT of the chest however showed heavy burden of chronic thrombosis, but there was a small area of possible new thrombosis in the left lower lobe. I did discuss this case with radiology and they felt that this was a tough call, and felt that there was a lot of perfusion defect from the chronic thrombosis as well. Of note the patient has been adamant that he has not missed any doses of Eliquis. Past Medical History Cardiac Medical History: Reports: Congestive Heart Failure, Hypertension Denies: Coronary Artery Disease, Myocardial Infarction Pulmonary Medical History: Reports: Chronic Obstructive Pulmonary Disease (COPD) Denies: Asthma, Bronchitis, Pneumonia Neurological Medical History: Denies: Seizures Malignancy Medical History: Reports: Lung Cancer Musculoskeltal Medical History: Denies: Arthritis Psychiatric Medical History: Reports: General Anxiety Disorder Hematology: Denies: Anemia Past Surgical History Past Surgical History: Reports: Other - Lung lobe resections Social History Information Source: Patient Lives with: Family Smoking Status: Former Smoker Frequency of Alcohol Use: None Hx Recreational Drug Use: No Drugs: None Hx Prescription Drug Abuse: No - Advance Directive Resuscitation Status: Full Code Family History Family History: Reviewed & Not Pertinent Parental Family History Reviewed: Yes Children Family History Reviewed: Yes Sibling(s) Family History Reviewed.: Yes Medication/Allergy Home Medications: Fluticasone/Salmeterol [Advair 250-50 Diskus 14 Dose/Diskus] 1 inh IH Q12 Furosemide [Lasix 20 mg Tablet] 20 mg PO Q8 08/07/17 Levalbuterol HCl [Xopenex Neb 1.25 mg/3 ml Ampul] 1.25 mg NEB RTQ12 08/07/17 Losartan Potassium [Cozaar 25 mg Tablet] 12.5 mg PO DAILY 08/07/17 Metoprolol Tartrate [Lopressor 25 mg Tablet] 12.5 mg PO Q12 08/07/17 Tamsulosin HCl [Flomax 0.4 mg Cap.sr] 0.4 mg PO DAILY 08/07/17 Tiotropium [place] [Spiriva Handihaler 5 Cap/Kit (18 Mcg/Cap)] 1 cap IH DAILY Allergies/Adverse Reactions: lisinopril [Lisinopril] Adverse Reaction (Severe, Verified 08/07/17 11:28) severe hypotension Review of Systems Constitutional: PRESENT: fatigue, weakness Cardiovascular: PRESENT: chest pain, dyspnea on exertion Gastrointestinal: ABSENT: abdominal pain, constipation, diarrhea, hematemesis, hematochezia, nausea, vomiting Genitourinary: PRESENT: as per HPI. ABSENT: dysuria, hematuria Musculoskeletal: ABSENT: joint swelling Neurological: ABSENT: abnormal gait, abnormal speech, confusion, dizziness, focal weakness, syncope Physical Exam Vital Signs: Temp Pulse Resp BP Pulse Ox 97.6 F 72 18 151/54 H 93 08/08/17 07:01 08/08/17 07:01 08/08/17 07:01 08/08/17 07:01 08/08/17 07:01 Intake & Output 08/07/17 08/08/17 08/09/17 06:59 06:59 06:59 Intake Total 600 Balance 600 Weight 51.5 kg General appearance: PRESENT: no acute distress, well-developed, well-nourished Head exam: PRESENT: atraumatic, normocephalic Eye exam: PRESENT: conjunctiva pink, EOMI, PERRLA. ABSENT: scleral icterus Ear exam: PRESENT: normal external ear exam Mouth exam: PRESENT: moist, tongue midline Neck exam: ABSENT: carotid bruit, JVD, lymphadenopathy, thyromegaly Respiratory exam: PRESENT: clear to auscultation steven. ABSENT: rales, rhonchi, wheezes Cardiovascular exam: PRESENT: RRR. ABSENT: diastolic murmur, rubs, systolic murmur Pulses: PRESENT: normal dorsalis pedis pul Vascular exam: PRESENT: normal capillary refill GI/Abdominal exam: PRESENT: normal bowel sounds, soft. ABSENT: distended, guarding, mass, organolmegaly, rebound, tenderness Rectal exam: PRESENT: deferred Extremities exam: PRESENT: full ROM. ABSENT: calf tenderness, clubbing, pedal edema Neurological exam: PRESENT: alert, awake, oriented to person, oriented to place , oriented to time, oriented to situation, CN II-XII grossly intact. ABSENT: motor sensory deficit Psychiatric exam: PRESENT: appropriate affect, normal mood. ABSENT: homicidal ideation, suicidal ideation Skin exam: PRESENT: dry, intact, warm. ABSENT: cyanosis, rash Results Laboratory Results: 08/08/17 04:49 08/08/17 04:49 08/08/17 08/08/17 04:49 04:49 WBC 6.8 RBC 4.91 Hgb 16.1 Hct 46.3 MCV 94 MCH 32.8 MCHC 34.8 RDW 15.2 H Plt Count 205 Sodium 142.4 Potassium 3.9 Chloride 111 H Carbon Dioxide 23 Anion Gap 8 BUN 29 H Creatinine 1.08 Est GFR ( Amer) > 60 Est GFR (Non-Af Amer) > 60 Glucose 97 Calcium 9.6 Magnesium 2.0 08/07/17 08/07/17 08/08/17 22:37 22:37 04:49 Creatine Kinase 66 56 CK-MB (CK-2) 3.22 Troponin I 0.012 NT-Pro-B Natriuret Pep 08/08/17 04:49 Creatine Kinase CK-MB (CK-2) 2.69 Troponin I 0.017 NT-Pro-B Natriuret Pep 3350 H Impressions: Chest X-Ray 08/07/17 11:48 IMPRESSION: COPD. Chronic pleural-parenchymal changes left lower lung zone and left base. Possible slight obscuring the right costophrenic angle not clearly identified on previous chest x-rays and may represent small effusion. Chest/Abdomen CTA 08/07/17 14:02 IMPRESSION: Small acute clot to these left lower lobe medial basal segment pulmonary artery. This was discussed with Dr. Sauceda in the emergency room. Incomplete resolution of the pulmonary emboli seen 12/20/2016, with partially calcified shrunken clot adherent to the hensley of the central pulmonary arteries as above. 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 Cm's plan to get cardiology involved and plan for echocardiogram and stress test. If cardiac causes fully ruled out then we have to consider the pulmonary possibility. In this case it could either be the large burden of chronic thrombosis causing this, or it could be the new small area of thrombosis causing increased pain. However, I would lean towards the chronic thrombosis causing this, and probably recommend continuing Eliquis rather than switching. The only other option would be switching to full dose Lovenox or Arixtra. At this point, continue with Lovenox, have patient walk as well, and do the cardiac workup as above.
--- NOTE | 2017-08-08 09:40 | EKG REPORT ---
SEVERITY:- ABNORMAL ECG - SINUS RHYTHM VENTRICULAR PREMATURE COMPLEX INCOMPLETE RIGHT BUNDLE BRANCH BLOCK CONSIDER ANTERIOR INFARCT BORDERLINE ST DEPRESSION, LATERAL LEADS : Confirmed by: Debby Yepez 08-Aug-2017 09:39:53
--- NOTE | 2017-08-08 10:55 | XCELERA REPORT ---
[address] [address] Transthoracic Echocardiogram Report Name: OZ KOCH Age: 67 yrs Gender: Male : 1950 Patient Status: Inpatient Patient Location: [address] [place] [address] Study Date: 08/08/2017 09:30 AM Procedure: A complete two-dimensional transthoracic echocardiogram was performed (2D, M-mode, spectral and color flow Doppler). The study was technically adequate with some images being suboptimal in quality. Reason For Study: Pulm emboli Ordering Physician: DEBBY ISRAEL Performed By: Zohreh Pagan Interpretation Summary The left ventricular ejection fraction is normal. Doppler measurements suggest impaired left ventricular relaxation, which is associated with grade I/IV or mild diastolic dysfunction The left ventricle is grossly normal size. Wall motion cannot be accurately commented on, but no definite regional wall motion abnormalities noted. The right ventricle is moderate to severely dilated. The right ventricle appears to be hypertrophied The right atrium is moderately dilated. The left atrial size is normal. There is no mitral valve stenosis. There is a trace to mild amount of mitral regurgitation There is no aortic valve stenosis No aortic regurgitation is present. There is a mild to moderate amount of tricuspid regurgitation There is servere pulmonary hypertension by echo Best estimated RVSP is approximately 75-85 mm/Hg. The pulmonic valve is not well visualized. The aortic root is not well visualized but is probably normal size. The inferior vena cava appeared normal and decreased > 50% with respiration (RAP 5-10 mmHg) There is no pericardial effusion. MMode/2D Measurements & Calculations RVDd: 4.8 cm LVIDd: 4.9 cm FS: 35.8 % Ao root diam: 3.2 cm IVSd: 1.2 cm LVIDs: 3.1 cm EDV(Teich): 111.4 mlAo root area: 7.9 cm2 LVPWd: 0.96 cmESV(Teich): 38.8 ml EF(Teich): 65.1 % LVOT diam: 1.6 cm LVOT area: 2.1 cm2 Doppler Measurements & Calculations MV E max teena: MV dec slope: Ao V2 max: LV V1 max P.5 cm/sec 107.2 cm/sec 3.0 mmHg MV A max teena: 156.8 cm/sec2 Ao max PG: LV V1 max: 69.0 cm/sec MV dec time: 4.6 mmHg 86.1 cm/sec MV E/A: 0.63 0.28 sec MADDIE(V,D): 1.7 cm2 PA V2 max: PI max teena: TR max teena: 59.8 cm/sec 183.2 cm/sec 439.2 cm/sec PA max PG: PI max P.4 mmHgTR max P.4 mmHg PI dec slope: 77.2 mmHg 13.0 cm/sec2 Left Ventricle The left ventricle is grossly normal size. The left ventricular ejection fraction is normal. Doppler measurements suggest impaired left ventricular relaxation, which is associated with grade I/IV or mild diastolic dysfunction. Wall motion cannot be accurately commented on, but no definite regional wall motion abnormalities noted. Right Ventricle The right ventricle is moderate to severely dilated. The right ventricle appears to be hypertrophied. The right ventricular systolic function is moderately reduced. Atria The right atrium is moderately dilated. The left atrial size is normal. Interarterial septum not well visualized and not well dopplered. Cannot comment on ASD/PFO presence. Mitral Valve The mitral valve is grossly normal. There is no mitral valve stenosis. There is a trace to mild amount of mitral regurgitation. Aortic Valve The aortic valve is grossly normal. There is no aortic valve stenosis. No aortic regurgitation is present. Tricuspid Valve The tricuspid valve is not well visualized, but is grossly normal. There is no tricuspid stenosis. There is a mild to moderate amount of tricuspid regurgitation. There is servere pulmonary hypertension by echo. Best estimated RVSP is approximately 75-85 mm/Hg. Pulmonic Valve The pulmonic valve is not well visualized. Great Vessels The aortic root is not well visualized but is probably normal size. The inferior vena cava appeared normal and decreased > 50% with respiration (RAP 5-10 mmHg). Effusions There is no pericardial effusion. : DEBBY ISRAEL > Debby Israel
--- NOTE | 2017-08-08 11:30 | PDOC PROGRESS REPORT ---
Subjective Progress Note for:: 08/08/17 Subjective:: Patient seems to be doing better with gradual improvement. Pt is denying any chest arm or neck discomfort. Patient denying any PND, orthopnea. Patient denied any sustained palpitations, dizziness, syncope, near syncope. Patient denying any fever chills. Patient denying any other significant discomfort. Patient is maintaining sinus rhythm. Occasional VPCs are noted. Patient did have a 2D echocardiogram, this was reviewed. Review of systems: Rest review of systems negative. Medications: Medications have been reviewed. Reason For Visit: CHEST PAIN/ACUTE PE Physical Exam Vital Signs: Temp Pulse Resp BP Pulse Ox 97.6 F 66 18 151/54 H 92 08/08/17 07:01 08/08/17 09:02 08/08/17 09:02 08/08/17 07:01 08/08/17 09:02 Intake & Output 08/07/17 08/08/17 08/09/17 06:59 06:59 06:59 Intake Total 600 Balance 600 Weight 51.5 kg Exam: GENERAL: well-nourished and in no acute distress. Alert and oriented x3 HEAD: Atraumatic, normocephalic. EYES: Pupils equal round and reactive to light, extraocular movements intact, sclera anicteric, conjunctiva are normal. ENT: TMs normal, nares patent, oropharynx clear without exudates. Moist mucous membranes. No oral ulcerations or bleeding gums noted NECK: supple without lymphadenopathy. Trachea is central. No cervical or axillary lymphadenopathy noted. Carotids are 2+, JVD WNL LUNGS: Respiration seems nonlabored, no significant accessory muscle action noted. Breath sounds clear to auscultation bilaterally and equal noted. Few a scattered wheezes rales or rhonchi noted. No significant dullness noted on percussion. CHEST: Palpation of the chest wall shows no significant chest wall tenderness. 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 ABDOMEN: Soft, no significant tenderness appreciated, normoactive bowel sounds. No guarding, no rebound. No rigidity noted . No masses appreciated. EXTREMITIES: Pedal pulses are 1-2+, no calf tenderness noted. No clubbing or cyanosis. negative pedal edema noted NEUROLOGICAL: Focused neurological exam showed no significant neurologic deficit. Normal speech, no focal weakness appreciated. PSYCH: Normal mood, normal affect. Judgment and insight within normal limits. SKIN: No significant ecchymosis, skin is noted to be warm. MUSCULOSKELETAL EXAM: No significant acute joint swelling noted. Results Laboratory Results: 08/08/17 04:49 08/08/17 04:49 08/08/17 08/08/17 04:49 04:49 WBC 6.8 RBC 4.91 Hgb 16.1 Hct 46.3 MCV 94 MCH 32.8 MCHC 34.8 RDW 15.2 H Plt Count 205 Sodium 142.4 Potassium 3.9 Chloride 111 H Carbon Dioxide 23 Anion Gap 8 BUN 29 H Creatinine 1.08 Est GFR ( Amer) > 60 Est GFR (Non-Af Amer) > 60 Glucose 97 Calcium 9.6 Magnesium 2.0 08/07/17 08/07/17 08/08/17 22:37 22:37 04:49 Creatine Kinase 66 56 CK-MB (CK-2) 3.22 Troponin I 0.012 NT-Pro-B Natriuret Pep 08/08/17 04:49 Creatine Kinase CK-MB (CK-2) 2.69 Troponin I 0.017 NT-Pro-B Natriuret Pep 3350 H EKG Comments: Sinus rhythm with APCs and VPCs being noted Impressions: Chest X-Ray 08/07/17 11:48 IMPRESSION: COPD. Chronic pleural-parenchymal changes left lower lung zone and left base. Possible slight obscuring the right costophrenic angle not clearly identified on previous chest x-rays and may represent small effusion. Chest/Abdomen CTA 08/07/17 14:02 IMPRESSION: Small acute clot to these left lower lobe medial basal segment pulmonary artery. This was discussed with Dr. Sauceda in the emergency room. Incomplete resolution of the pulmonary emboli seen 12/20/2016, with partially calcified shrunken clot adherent to the hensley of the central pulmonary arteries as above. 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 Assessment & Plan - Diagnosis (1) Chest pain Qualifiers: Chest pain type: unspecified Qualified Code(s): R07.9 - Chest pain, unspecified Is this a current diagnosis for this admission?: Yes (2) Chronic obstructive pulmonary disease Qualifiers: COPD type: unspecified COPD Qualified Code(s): J44.9 - Chronic obstructive pulmonary disease, unspecified Is this a current diagnosis for this admission?: Yes (3) Congestive heart failure Qualifiers: Heart failure type: right-sided Heart failure chronicity: chronic Qualified Code(s): I50.812 - Chronic right heart failure Is this a current diagnosis for this admission?: Yes (4) Hyperlipidemia Qualifiers: Hyperlipidemia type: unspecified Qualified Code(s): E78.5 - Hyperlipidemia , unspecified Is this a current diagnosis for this admission?: Yes (5) Lung cancer Qualifiers: Lung location: unspecified part of lung Is this a current diagnosis for this admission?: Yes (6) Pulmonary embolism Qualifiers: Pulmonary embolism type: other Chronicity: chronic Acute cor pulmonale presence: without acute cor pulmonale Qualified Code(s): I27.82 - Chronic pulmonary embolism Is this a current diagnosis for this admission?: Yes (7) Shortness of breath Is this a current diagnosis for this admission?: Yes - Notes Notes: Chest pain: Possibly related to pulmonary embolism, pulmonary hypertension. Cannot rule out underlying CAD. 2D echocardiogram shows severe pulmonary hypertension, moderate to severe dilatation of the right ventricle. Cardiac enzymes are relatively unremarkable. Patient CT scan reviewed. It showed severe emphysema as well as some emphysematous bullae. At this point would recommend medical management for any presumed CAD. Patient chest pain has also resolved. Severe pulmonary hypertension: Most likely related to chronic thromboembolic disease. Patient may benefit from evaluation of hypercoagulable disorder. 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 Their recommendations were noted. Patient will benefit from institution of oxygen therapy. This could be carried out from my office if needed. COPD: Patient claims this is a significant problem. Continue with bronchodilator and steroid therapy as needed. CHF: Patient gives history of right-sided CHF. However currently on exam seems compensated. Dyslipidemia: Continue statin therapy. History of lung cancer: Currently in remission. This is what is reported by the patient. Patient may need further evaluation from oncologist as patient is still having problems with thromboembolic phenomenon. Oncologist following. Pulmonary embolism: Patient has history of recurrent pulmonary embolism. Based on CT scan there is some recurrence of pulmonary embolism. Shortness of breath: Combination of COPD, lung cancer surgery and pulmonary embolism. Based on 2D echo, this is confirmed that dyspnea related to COPD, severe pulmonary hypertension. - Time Time with patient: Greater than 35 minutes - CODE STATUS was discussed, patient remains full code. Surrogate decision-maker unchanged. Multiple medical problems were addressed. More than 50% of the time spent coordinating care, discussing management plans with involved caregivers. Management plans discussed with involved personnels. Medical decision making was of moderate to high complexity, patient's has multiple comorbidities. Medications reviewed and adjusted accordingly: Yes
[2017-08-08] MEDS: ENOXAPARIN SODIUM INJ 80 MG/0.8 ML DISP.SYRIN SUBCUT SCH ×2 (11:58→21:43)
[2017-08-08] MEDS: FUROSEMIDE 20 MG TABLET PO SCH ×2 (15:07→21:46)
--- NOTE | 2017-08-08 15:41 | PDOC PROGRESS REPORT ---
Subjective Progress Note for:: 08/08/17 Subjective:: Patient is currently doing well Patient's denied any chest pain denied any shortness of the breath Is currently on the Lovenox Reason For Visit: CHEST PAIN/ACUTE PE Physical Exam Vital Signs: Temp Pulse Resp BP Pulse Ox 98.1 F 63 16 132/92 H 95 08/08/17 10:42 08/08/17 14:02 08/08/17 14:02 08/08/17 10:42 08/08/17 14:02 Intake & Output 08/07/17 08/08/17 08/09/17 06:59 06:59 06:59 Intake Total 600 0 Balance 600 0 Weight 51.5 kg General appearance: PRESENT: no acute distress, well-developed, well-nourished Head exam: PRESENT: atraumatic, normocephalic Eye exam: PRESENT: conjunctiva pink, EOMI, PERRLA. ABSENT: scleral icterus Ear exam: PRESENT: normal external ear exam Mouth exam: PRESENT: moist, tongue midline Neck exam: PRESENT: full ROM. ABSENT: carotid bruit, JVD, lymphadenopathy, thyromegaly Respiratory exam: PRESENT: clear to auscultation steven Cardiovascular exam: PRESENT: RRR. ABSENT: diastolic murmur, rubs, systolic murmur Pulses: PRESENT: normal dorsalis pedis pul, +2 pedal pulses bilateral Vascular exam: PRESENT: normal capillary refill GI/Abdominal exam: PRESENT: normal bowel sounds, soft. ABSENT: distended, guarding, mass, organolmegaly, rebound, tenderness Rectal exam: PRESENT: deferred Extremities exam: ABSENT: pedal edema Musculoskeletal exam: PRESENT: ambulatory Neurological exam: PRESENT: alert, awake, oriented to person, oriented to place , oriented to time, oriented to situation, CN II-XII grossly intact. ABSENT: motor sensory deficit Psychiatric exam: PRESENT: appropriate affect, normal mood. ABSENT: homicidal ideation, suicidal ideation Skin exam: PRESENT: dry, intact, warm. ABSENT: cyanosis, rash Results Laboratory Results: 08/08/17 04:49 08/08/17 04:49 08/08/17 08/08/17 04:49 04:49 WBC 6.8 RBC 4.91 Hgb 16.1 Hct 46.3 MCV 94 MCH 32.8 MCHC 34.8 RDW 15.2 H Plt Count 205 Sodium 142.4 Potassium 3.9 Chloride 111 H Carbon Dioxide 23 Anion Gap 8 BUN 29 H Creatinine 1.08 Est GFR ( Amer) > 60 Est GFR (Non-Af Amer) > 60 Glucose 97 Calcium 9.6 Magnesium 2.0 08/07/17 08/07/17 08/08/17 22:37 22:37 04:49 Creatine Kinase 66 56 CK-MB (CK-2) 3.22 Troponin I 0.012 NT-Pro-B Natriuret Pep 08/08/17 04:49 Creatine Kinase CK-MB (CK-2) 2.69 Troponin I 0.017 NT-Pro-B Natriuret Pep 3350 H Impressions: Chest X-Ray 08/07/17 11:48 IMPRESSION: COPD. Chronic pleural-parenchymal changes left lower lung zone and left base. Possible slight obscuring the right costophrenic angle not clearly identified on previous chest x-rays and may represent small effusion. Chest/Abdomen CTA 08/07/17 14:02 IMPRESSION: Small acute clot to these left lower lobe medial basal segment pulmonary artery. This was discussed with Dr. Sauceda in the emergency room. Incomplete resolution of the pulmonary emboli seen 12/20/2016, with partially calcified shrunken clot adherent to the hensley of the central pulmonary arteries as above. 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 Assessment & Plan - Diagnosis (1) Chest pain Qualifiers: Chest pain type: unspecified Qualified Code(s): R07.9 - Chest pain, unspecified Is this a current diagnosis for this admission?: Yes Plan: Patient initial cardiac workup is all negative Patient's recently increased the more activity which may be a could more like a muscular pain with very doubt about the acute pulmonary embolism with the left side Continues the patient on Lovenox and follow with the retail customer service representative follow with the machine pie maker (2) Congestive heart failure Qualifiers: Heart failure type: right-sided Heart failure chronicity: chronic Qualified Code(s): I50.812 - Chronic right heart failure Is this a current diagnosis for this admission?: Yes Plan: Due to the recent's massive right-sided pulmonary embolism currently on the Lasix (3) Chronic obstructive pulmonary disease Qualifiers: COPD type: unspecified COPD Qualified Code(s): J44.9 - Chronic obstructive pulmonary disease, unspecified Is this a current diagnosis for this admission?: Yes Plan: Continues to DuoNeb nebulizer (4) Cardiac dysrhythmia Qualifiers: Arrhythmia type: atrial fibrillation Is this a current diagnosis for this admission?: Yes Plan: Patient is currently see a [facility] (5) Hyperlipidemia Qualifiers: Hyperlipidemia type: unspecified Qualified Code(s): E78.5 - Hyperlipidemia , unspecified Is this a current diagnosis for this admission?: Yes Plan: Currently all stable (6) Lung cancer Qualifiers: Lung location: unspecified part of lung Is this a current diagnosis for this admission?: Yes Plan: Status post surgery (7) Pulmonary embolism Qualifiers: Pulmonary embolism type: other Chronicity: chronic Acute cor pulmonale presence: without acute cor pulmonale Qualified Code(s): I27.82 - Chronic pulmonary embolism Is this a current diagnosis for this admission?: Yes Plan: Will continues to Lovenox currently see the retail customer service representative for further evaluation while patient is already on Eliquis and questionable left-sided blood clot which is new from the previous CT scan - Time Time Spent with patient: 15-24 minutes Medications reviewed and adjusted accordingly: Yes Anticipated discharge: Home Within: Other - Inpatient Certification Medical Necessity: Need Close Monitoring Due to Risk of Patient Decompensation Post Hospital Care: D/C Machine Hoop Maker Documentation - Plan Summary Plan Summary: See other MD orders
--- NOTE | 2017-08-08 17:35 | Physician Advisory Note ---
Physician Advisor ProgressNote .: Pursuant to the plan for [facility], I have reviewed the medical record for this patient. Physician Advisor Statement: Please consider documenting, if you agree: 1. R.e. CHF - does pt have "Rt HF due to Lt HF (systolic, or diastolic)?", or "Verdana 4Bd Cor Pulmonale (state acute, chronic, or [id number])? 2. "mod/severe malnutrition, evidenced by " Thanks! CK
[2017-08-08] MEDS: FLUTICASONE/SALMETEROL DISKUS 250-50 MCG/DOSE IH SCH (21:46)
[2017-08-08] MEDS: METOPROLOL TARTRATE 25 MG TABLET PO SCH (21:46)
[2017-08-09] MEDS: IPRATROPIUM/ALBUTEROL 0.5-2.5 MG/3 ML AMPUL NEB SCH ×4 (01:57→19:47)
[2017-08-09] MEDS: FUROSEMIDE 20 MG TABLET PO SCH ×3 (05:07→21:30)
[2017-08-09] MEDS: LANSOPRAZOLE 15 MG TAB.RAP.DR PO SCH ×2 (05:07→18:36)
[2017-08-09 05:09] LABS: ABSOLUTE BASOPHILS # (AUTO) 0.1 10^3/uL (0.0-0.2); ABSOLUTE EOSINOPHILS # (AUTO) 0.1 10^3/uL (0.0-0.6); ABSOLUTE LYMPHOCYTES (AUTO) 1.4 10^3/uL (0.5-4.7); ABSOLUTE MONOCYTES (AUTO) 0.8 10^3/uL (0.1-1.4); ABSOLUTE NEUT (AUTO) 4.9 10^3/uL (1.7-8.2); BASOPHILS % (AUTO) 0.7 % (0-2); EOSINOPHILS % (AUTO) 1.5 % (0-6); HEMATOCRIT 46.8 % (37.9-51.0); HEMOGLOBIN 16.1 g/dL (13.5-17.0); LYMPHOCYTES % (AUTO) 19.5 % (13-45); MEAN CORPUSCULAR HEMOGLOBIN 32.5 pg (27.0-33.4); MEAN CORPUSCULAR HGB CONC 34.3 g/dL (32.0-36.0); MEAN CORPUSCULAR VOLUME 95 fl (80-97); MONOCYTES % (AUTO) 11.1 % (3-13); PLATELET COUNT 200 10^3/uL (150-450); RED BLOOD COUNT 4.95 10^6/uL (4.35-5.55); SEGMENTED NEUTROPHILS % (AUTO) 67.2 % (42-78); TOTAL CELLS COUNTED % (AUTO) 100 %; WHITE BLOOD COUNT 7.3 10^3/uL (4.0-10.5)
[2017-08-09 05:27] LABS: ANION GAP 9 (5-19); BLOOD UREA NITROGEN 25 mg/dL (7-20); CALCIUM 9.5 mg/dL (8.4-10.2); CARBON DIOXIDE 22 mmol/L (22-30); CHLORIDE 110 mmol/L (98-107); GLUCOSE 95 mg/dL (75-110); POTASSIUM 4.3 mmol/L (3.6-5.0); SODIUM 140.9 mmol/L (137-145)
--- NOTE | 2017-08-09 08:55 | PDOC PROGRESS REPORT ---
Subjective Progress Note for:: 08/09/17 Subjective:: Patient still with some chest soreness, today had a long discussion with patient as well as Dr. Cm, because we cannot fully rule out that there is some new clot, we would consider this in Eliquis failure. Therefore we will do Lovenox teaching today but it would be better to ultimately switch him to Arixtra which would be just a once a day dose. We will see if his pharmacy coverage approves this, I ordered it through our pharmacy and we will fill it and see how it goes. He will get teaching today and probable discharge tomorrow based upon that and how his chest pain does. In addition we instructed him to wear his oxygen 11/09 because he does desat in the 80s when his oxygen is off. Reason For Visit: CHEST PAIN/ACUTE PE Physical Exam Vital Signs: Temp Pulse Resp BP Pulse Ox 97.9 F 65 18 121/61 96 08/09/17 04:35 08/09/17 08:27 08/09/17 08:27 08/09/17 04:35 08/09/17 08:27 Intake & Output 08/08/17 08/09/17 08/10/17 06:59 06:59 06:59 Intake Total 600 1980 Balance 600 1979 Weight 51.5 kg 50.1 kg General appearance: PRESENT: no acute distress, well-developed, well-nourished Head exam: PRESENT: atraumatic, normocephalic Eye exam: PRESENT: conjunctiva pink, EOMI, PERRLA. ABSENT: scleral icterus Ear exam: PRESENT: normal external ear exam Mouth exam: PRESENT: moist, tongue midline Neck exam: ABSENT: carotid bruit, JVD, lymphadenopathy, thyromegaly Respiratory exam: PRESENT: clear to auscultation steven. ABSENT: rales, rhonchi, wheezes Cardiovascular exam: PRESENT: RRR. ABSENT: diastolic murmur, rubs, systolic murmur Pulses: PRESENT: normal dorsalis pedis pul Vascular exam: PRESENT: normal capillary refill GI/Abdominal exam: PRESENT: normal bowel sounds, soft. ABSENT: distended, guarding, mass, organolmegaly, rebound, tenderness Rectal exam: PRESENT: deferred Extremities exam: PRESENT: full ROM. ABSENT: calf tenderness, clubbing, pedal edema Neurological exam: PRESENT: alert, awake, oriented to person, oriented to place , oriented to time, oriented to situation, CN II-XII grossly intact. ABSENT: motor sensory deficit Psychiatric exam: PRESENT: appropriate affect, normal mood. ABSENT: homicidal ideation, suicidal ideation Skin exam: PRESENT: dry, intact, warm. ABSENT: cyanosis, rash Results Laboratory Results: 08/09/17 04:33 08/09/17 04:33 08/09/17 08/09/17 04:33 04:33 WBC 7.3 RBC 4.95 Hgb 16.1 Hct 46.8 MCV 95 MCH 32.5 MCHC 34.3 RDW 15.0 H Plt Count 200 Seg Neutrophils % 67.2 Lymphocytes % 19.5 Monocytes % 11.1 Eosinophils % 1.5 Basophils % 0.7 Absolute Neutrophils 4.9 Absolute Lymphocytes 1.4 Absolute Monocytes 0.8 Absolute Eosinophils 0.1 Absolute Basophils 0.1 Sodium 140.9 Potassium 4.3 Chloride 110 H Carbon Dioxide 22 Anion Gap 9 BUN 25 H Creatinine 1.08 Est GFR ( Amer) > 60 Est GFR (Non-Af Amer) > 60 Glucose 95 Calcium 9.5 Magnesium 1.9 08/07/17 08/07/17 08/08/17 22:37 22:37 04:49 Creatine Kinase 66 56 CK-MB (CK-2) 3.22 Troponin I 0.012 NT-Pro-B Natriuret Pep 08/08/17 04:49 Creatine Kinase CK-MB (CK-2) 2.69 Troponin I 0.017 NT-Pro-B Natriuret Pep 3350 H Impressions: Chest X-Ray 08/07/17 11:48 IMPRESSION: COPD. Chronic pleural-parenchymal changes left lower lung zone and left base. Possible slight obscuring the right costophrenic angle not clearly identified on previous chest x-rays and may represent small effusion. Chest/Abdomen CTA 08/07/17 14:02 IMPRESSION: Small acute clot to these left lower lobe medial basal segment pulmonary artery. This was discussed with Dr. Sauceda in the emergency room. Incomplete resolution of the pulmonary emboli seen 12/20/2016, with partially calcified shrunken clot adherent to the hensley of the central pulmonary arteries as above. 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 Today spent greater than 35 minutes in coordination and discussion with patient.
--- NOTE | 2017-08-09 09:39 | EKG REPORT ---
SEVERITY:- BORDERLINE ECG - SINUS RHYTHM RIGHT AXIS DEVIATION BORDERLINE R WAVE PROGRESSION, ANTERIOR LEADS NONSPECIFIC ST-T CHANGES : Confirmed by: Debby Yepez 09-Aug-2017 09:38:53
--- NOTE | 2017-08-09 11:53 | PDOC PROGRESS REPORT ---
Subjective Progress Note for:: 08/09/17 Subjective:: Patient seems to be doing better with gradual improvement. Pt is denying any chest arm or neck discomfort. Patient denying any PND, orthopnea. Patient denied any sustained palpitations, dizziness, syncope, near syncope. Patient denying any fever chills. Patient denying any other significant discomfort. Patient is maintaining sinus rhythm. Occasional VPCs are noted. Patient did have a 2D echocardiogram, this was reviewed. 2D echocardiogram shows moderate to severely enlarged RV with severe pulmonary hypertension. Review of systems: Rest review of systems negative. Medications: Medications have been reviewed. Reason For Visit: CHEST PAIN/ACUTE PE Physical Exam Vital Signs: Temp Pulse Resp BP Pulse Ox 97.9 F 65 18 121/61 96 08/09/17 04:35 08/09/17 08:27 08/09/17 08:27 08/09/17 04:35 08/09/17 08:27 Intake & Output 08/08/17 08/09/17 08/10/17 06:59 06:59 06:59 Intake Total 600 1980 Balance 600 1979 Weight 51.5 kg 50.1 kg Exam: GENERAL: well-nourished and in no acute distress. Alert and oriented x3 HEAD: Atraumatic, normocephalic. EYES: Pupils equal round and reactive to light, extraocular movements intact, sclera anicteric, conjunctiva are normal. ENT: TMs normal, nares patent, oropharynx clear without exudates. Moist mucous membranes. No oral ulcerations or bleeding gums noted NECK: supple without lymphadenopathy. Trachea is central. No cervical or axillary lymphadenopathy noted. Carotids are 2+, JVD WNL LUNGS: Respiration seems nonlabored, no significant accessory muscle action noted. Breath sounds clear to auscultation bilaterally and equal noted. Few a scattered wheezes rales or rhonchi noted. No significant dullness noted on percussion. CHEST: Palpation of the chest wall shows no significant chest wall tenderness. 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 ABDOMEN: Soft, no significant tenderness appreciated, normoactive bowel sounds. No guarding, no rebound. No rigidity noted . No masses appreciated. EXTREMITIES: Pedal pulses are 1-2+, no calf tenderness noted. No clubbing or cyanosis. negative pedal edema noted NEUROLOGICAL: Focused neurological exam showed no significant neurologic deficit. Normal speech, no focal weakness appreciated. PSYCH: Normal mood, normal affect. Judgment and insight within normal limits. SKIN: No significant ecchymosis, skin is noted to be warm. MUSCULOSKELETAL EXAM: No significant acute joint swelling noted. Results Laboratory Results: 08/09/17 04:33 08/09/17 04:33 08/09/17 08/09/17 04:33 04:33 WBC 7.3 RBC 4.95 Hgb 16.1 Hct 46.8 MCV 95 MCH 32.5 MCHC 34.3 RDW 15.0 H Plt Count 200 Seg Neutrophils % 67.2 Lymphocytes % 19.5 Monocytes % 11.1 Eosinophils % 1.5 Basophils % 0.7 Absolute Neutrophils 4.9 Absolute Lymphocytes 1.4 Absolute Monocytes 0.8 Absolute Eosinophils 0.1 Absolute Basophils 0.1 Sodium 140.9 Potassium 4.3 Chloride 110 H Carbon Dioxide 22 Anion Gap 9 BUN 25 H Creatinine 1.08 Est GFR ( Amer) > 60 Est GFR (Non-Af Amer) > 60 Glucose 95 Calcium 9.5 Magnesium 1.9 08/07/17 08/07/17 08/08/17 22:37 22:37 04:49 Creatine Kinase 66 56 CK-MB (CK-2) 3.22 Troponin I 0.012 NT-Pro-B Natriuret Pep 08/08/17 04:49 Creatine Kinase CK-MB (CK-2) 2.69 Troponin I 0.017 NT-Pro-B Natriuret Pep 3350 H EKG Comments: Shows sinus rhythm with occasional APCs and VPCs. No sustained cardiac dysrhythmia noted Impressions: Chest X-Ray 08/07/17 11:48 IMPRESSION: COPD. Chronic pleural-parenchymal changes left lower lung zone and left base. Possible slight obscuring the right costophrenic angle not clearly identified on previous chest x-rays and may represent small effusion. Chest/Abdomen CTA 08/07/17 14:02 IMPRESSION: Small acute clot to these left lower lobe medial basal segment pulmonary artery. This was discussed with Dr. Sauceda in the emergency room. Incomplete resolution of the pulmonary emboli seen 12/20/2016, with partially calcified shrunken clot adherent to the hensley of the central pulmonary arteries as above. 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 Assessment & Plan - Diagnosis (1) Chest pain Qualifiers: Chest pain type: unspecified Qualified Code(s): R07.9 - Chest pain, unspecified Is this a current diagnosis for this admission?: Yes (2) Chronic obstructive pulmonary disease Qualifiers: COPD type: unspecified COPD Qualified Code(s): J44.9 - Chronic obstructive pulmonary disease, unspecified Is this a current diagnosis for this admission?: Yes (3) Congestive heart failure Qualifiers: Heart failure type: right-sided Heart failure chronicity: chronic Qualified Code(s): I50.812 - Chronic right heart failure Is this a current diagnosis for this admission?: Yes (4) Hyperlipidemia Qualifiers: Hyperlipidemia type: unspecified Qualified Code(s): E78.5 - Hyperlipidemia , unspecified Is this a current diagnosis for this admission?: Yes (5) Lung cancer Qualifiers: Lung location: unspecified part of lung Is this a current diagnosis for this admission?: Yes (6) Pulmonary embolism Qualifiers: Pulmonary embolism type: other Chronicity: acute Acute cor pulmonale presence: with acute cor pulmonale Qualified Code(s): I26.09 - Other pulmonary embolism with acute cor pulmonale Is this a current diagnosis for this admission?: Yes (7) Shortness of breath Is this a current diagnosis for this admission?: Yes - Notes Notes: Patient has remained stable from cardiac standpoint. At this point discussed with the patient that he might need periodic echocardiogram to follow-up on pulmonary hypertension. Also discussed need for oxygen therapy. Patient will also need adequate management for his underlying lung condition which is severe emphysema. Do not feel patient needs a cardiac stress testing. Feel that there may be a contraindication given patient's severe pulmonary hypertension and if needed for cardiac CTA at a tertiary care center can be arranged, as an outpatient to evaluate his coronaries. Chest pain: Possibly related to pulmonary embolism, pulmonary hypertension. Cannot rule out underlying CAD. 2D echocardiogram shows severe pulmonary hypertension, moderate to severe dilatation of the right ventricle. Cardiac enzymes are relatively unremarkable. Patient CT scan reviewed. It showed severe emphysema as well as some emphysematous bullae. At this point would recommend medical management for any presumed CAD. Patient chest pain has also resolved. Severe pulmonary hypertension: Most likely related to chronic thromboembolic disease. Patient may benefit from evaluation of hypercoagulable disorder. Patient already seeing oncologist/senior military analyst. Their recommendations were noted. Patient will benefit from institution of oxygen therapy. This could be carried out from my office if needed. COPD: Patient claims this is a significant problem. Continue with bronchodilator and steroid therapy as needed. CHF: Patient gives history of right-sided CHF. However currently on exam seems compensated. Dyslipidemia: Continue statin therapy. History of lung cancer: Currently in remission. This is what is reported by the patient. Patient may need further evaluation from oncologist as patient is still having problems with thromboembolic phenomenon. Oncologist following. Pulmonary embolism: Patient has history of recurrent pulmonary embolism. Based on CT scan there is some recurrence of pulmonary embolism. Shortness of breath: Combination of COPD, lung cancer surgery and pulmonary embolism. Based on 2D echo, this is confirmed that dyspnea related to COPD, severe pulmonary hypertension. - Time Time with patient: Greater than 35 minutes - CODE STATUS was discussed, patient remains full code. Surrogate decision-maker unchanged. Multiple medical problems were addressed. More than 50% of the time spent coordinating care, discussing management plans with involved caregivers. Management plans discussed with involved personnels. Medical decision making was of moderate to high complexity, patient's has multiple comorbidities. Will sign off. Please reconsult if needed. Medications reviewed and adjusted accordingly: Yes
[2017-08-09] MEDS: ENOXAPARIN SODIUM INJ 80 MG/0.8 ML DISP.SYRIN SUBCUT SCH ×2 (12:29→21:31)
[2017-08-09] MEDS: TAMSULOSIN HCL 0.4 MG CAP.SR.24H PO SCH (12:31)
[2017-08-09] MEDS: LOSARTAN POTASSIUM 25 MG TABLET PO SCH (12:32)
[2017-08-09] MEDS: METOPROLOL TARTRATE 25 MG TABLET PO SCH ×2 (12:33→21:30)
[2017-08-09] MEDS: FLUTICASONE/SALMETEROL DISKUS 250-50 MCG/DOSE IH SCH ×2 (12:35→21:31)
[2017-08-09] MEDS: TIOTROPIUM BROMIDE DPI 5 CAP/KIT (18 MCG/CAP) IH SCH (12:36)
--- NOTE | 2017-08-09 14:01 | PDOC PROGRESS REPORT ---
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 ABSENT: scleral icterus Ear exam: PRESENT: normal external ear exam Mouth exam: PRESENT: moist, tongue midline Neck exam: PRESENT: full ROM. ABSENT: carotid bruit, JVD, lymphadenopathy, thyromegaly Respiratory exam: PRESENT: clear to auscultation steven Cardiovascular exam: PRESENT: RRR. ABSENT: diastolic murmur, rubs, systolic murmur Pulses: PRESENT: normal dorsalis pedis pul, +2 pedal pulses bilateral Vascular exam: PRESENT: normal capillary refill GI/Abdominal exam: PRESENT: normal bowel sounds, soft. ABSENT: distended, guarding, mass, organolmegaly, rebound, tenderness Rectal exam: PRESENT: deferred Extremities exam: ABSENT: pedal edema Musculoskeletal exam: PRESENT: ambulatory Neurological exam: PRESENT: alert, awake, oriented to person, oriented to place , oriented to time, oriented to situation, CN II-XII grossly intact. ABSENT: motor sensory deficit Psychiatric exam: PRESENT: appropriate affect, normal mood. ABSENT: homicidal ideation, suicidal ideation Skin exam: PRESENT: dry, intact, warm. ABSENT: cyanosis, rash Results Laboratory Results: 08/09/17 04:33 08/09/17 04:33 08/09/17 08/09/17 04:33 04:33 WBC 7.3 RBC 4.95 Hgb 16.1 Hct 46.8 MCV 95 MCH 32.5 MCHC 34.3 RDW 15.0 H Plt Count 200 Seg Neutrophils % 67.2 Lymphocytes % 19.5 Monocytes % 11.1 Eosinophils % 1.5 Basophils % 0.7 Absolute Neutrophils 4.9 Absolute Lymphocytes 1.4 Absolute Monocytes 0.8 Absolute Eosinophils 0.1 Absolute Basophils 0.1 Sodium 140.9 Potassium 4.3 Chloride 110 H Carbon Dioxide 22 Anion Gap 9 BUN 25 H Creatinine 1.08 Est GFR ( Amer) > 60 Est GFR (Non-Af Amer) > 60 Glucose 95 Calcium 9.5 Magnesium 1.9 08/07/17 08/07/17 08/08/17 22:37 22:37 04:49 Creatine Kinase 66 56 CK-MB (CK-2) 3.22 Troponin I 0.012 NT-Pro-B Natriuret Pep 08/08/17 04:49 Creatine Kinase CK-MB (CK-2) 2.69 Troponin I 0.017 NT-Pro-B Natriuret Pep 3350 H Impressions: Chest X-Ray 08/07/17 11:48 IMPRESSION: COPD. Chronic pleural-parenchymal changes left lower lung zone and left base. Possible slight obscuring the right costophrenic angle not clearly identified on previous chest x-rays and may represent small effusion. Chest/Abdomen CTA 08/07/17 14:02 IMPRESSION: Small acute clot to these left lower lobe medial basal segment pulmonary artery. This was discussed with Dr. Sauceda in the emergency room. Incomplete resolution of the pulmonary emboli seen 12/20/2016, with partially calcified shrunken clot adherent to the hensley of the central pulmonary arteries as above. 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 (2) Congestive heart failure Qualifiers: Heart failure type: right-sided Heart failure chronicity: chronic Qualified Code(s): I50.812 - Chronic right heart failure Is this a current diagnosis for this admission?: Yes Plan: Due to the recent's massive right-sided pulmonary embolism currently on the Lasix (3) Chronic obstructive pulmonary disease Qualifiers: COPD type: unspecified COPD Qualified Code(s): J44.9 - Chronic obstructive pulmonary disease, unspecified Is this a current diagnosis for this admission?: Yes Plan: Continues to DuoNeb nebulizer (4) Cardiac dysrhythmia Qualifiers: Arrhythmia type: atrial fibrillation Is this a current diagnosis for this admission?: Yes Plan: Patient is currently see a [place] [facility] (5) Hyperlipidemia Qualifiers: Hyperlipidemia type: unspecified Qualified Code(s): E78.5 - Hyperlipidemia , unspecified Is this a current diagnosis for this admission?: Yes Plan: Currently all stable (6) Lung cancer Qualifiers: Lung location: unspecified part of lung Is this a current diagnosis for this admission?: Yes Plan: Status post surgery (7) Pulmonary embolism Qualifiers: Pulmonary embolism type: other Chronicity: acute Acute cor pulmonale presence: with acute cor pulmonale Qualified Code(s): I26.09 - Other pulmonary embolism with acute cor pulmonale Is this a current diagnosis for this admission?: Yes Plan: Will continues to Lovenox currently see the high school french teacher for further evaluation while patient is already on Eliquis and questionable left-sided blood clot which is new from the previous CT scan - Time Time Spent with patient: 15-24 minutes Medications reviewed and adjusted accordingly: Yes Anticipated discharge: Home Within: within 24 hours - Inpatient Certification Medical Necessity: Need Close Monitoring Due to Risk of Patient Decompensation 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
[2017-08-10] MEDS: IPRATROPIUM/ALBUTEROL 0.5-2.5 MG/3 ML AMPUL NEB SCH ×2 (02:08→08:15)
[2017-08-10 05:14] LABS: HEMATOCRIT 47.6 % (37.9-51.0); HEMOGLOBIN 16.1 g/dL (13.5-17.0); MEAN CORPUSCULAR HEMOGLOBIN 32.1 pg (27.0-33.4); MEAN CORPUSCULAR HGB CONC 33.9 g/dL (32.0-36.0); MEAN CORPUSCULAR VOLUME 95 fl (80-97); PLATELET COUNT 186 10^3/uL (150-450); RED BLOOD COUNT 5.03 10^6/uL (4.35-5.55); RED CELL DISTRIBUTION WIDTH 15.1 % (11.5-14.0); WHITE BLOOD COUNT 6.6 10^3/uL (4.0-10.5)
[2017-08-10 05:39] LABS: ANION GAP 9 (5-19); BLOOD UREA NITROGEN 30 mg/dL (7-20); CALCIUM 9.7 mg/dL (8.4-10.2); CARBON DIOXIDE 23 mmol/L (22-30); CHLORIDE 109 mmol/L (98-107); GLUCOSE 95 mg/dL (75-110); POTASSIUM 4.4 mmol/L (3.6-5.0); SODIUM 140.7 mmol/L (137-145)
[2017-08-10] MEDS: LANSOPRAZOLE 15 MG TAB.RAP.DR PO SCH (05:57)
[2017-08-10] MEDS: FUROSEMIDE 20 MG TABLET PO SCH (05:57)
--- NOTE | 2017-08-10 08:12 | PDOC PROGRESS REPORT ---
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12 Est GFR ( Amer) > 60 Est GFR (Non-Af Amer) > 60 Glucose 95 Calcium 9.7 Magnesium 1.9 08/07/17 08/07/17 08/08/17 22:37 22:37 04:49 Creatine Kinase 66 56 CK-MB (CK-2) 3.22 Troponin I 0.012 NT-Pro-B Natriuret Pep 08/08/17 04:49 Creatine Kinase CK-MB (CK-2) 2.69 Troponin I 0.017 NT-Pro-B Natriuret Pep 3350 H Impressions: Chest X-Ray 08/07/17 11:48 IMPRESSION: COPD. Chronic pleural-parenchymal changes left lower lung zone and left base. Possible slight obscuring the right costophrenic angle not clearly identified on previous chest x-rays and may represent small effusion. Chest/Abdomen CTA 08/07/17 14:02 IMPRESSION: Small acute clot to these left lower lobe medial basal segment pulmonary artery. This was discussed with Dr. Sauceda in the emergency room. Incomplete resolution of the pulmonary emboli seen 12/20/2016, with partially calcified shrunken clot adherent to the hensley of the central pulmonary arteries as above. 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
[2017-08-10] MEDS ORDERED: FONDAPARINUX SODIUM INJ 7.5 MG/0.6 ML DISP.SYRIN SUBCUT ONE (09:00)
[2017-08-10 09:03] VITALS: BP 116/58
[2017-08-10] MEDS: METOPROLOL TARTRATE 25 MG TABLET PO SCH (09:40)
[2017-08-10] MEDS: LOSARTAN POTASSIUM 25 MG TABLET PO SCH (09:40)
[2017-08-10] MEDS: TIOTROPIUM BROMIDE DPI 5 CAP/KIT (18 MCG/CAP) IH SCH (09:41)
[2017-08-10] MEDS: FLUTICASONE/SALMETEROL DISKUS 250-50 MCG/DOSE IH SCH (09:41)
[2017-08-10] MEDS: TAMSULOSIN HCL 0.4 MG CAP.SR.24H PO SCH (09:41)
--- NOTE | 2017-09-27 13:24 | PDOC DISCHARGE SUMMARY ---
General - Admit/Disc Date/PCP Admission Date/Primary Care Provider: 08/07/17 18:05 RAOUL JENKINS MD Discharge Date: 08/10/17 - Discharge Diagnosis (1) Chest pain Is this a current diagnosis for this admission?: Yes Summary: Currently all resolved (2) Congestive heart failure Is this a current diagnosis for this admission?: Yes Summary: Currently all stable (3) Chronic obstructive pulmonary disease Is this a current diagnosis for this admission?: Yes Summary: Continuous nebulizer (4) Cardiac dysrhythmia Is this a current diagnosis for this admission?: Yes Summary: Currently on stable (5) Hyperlipidemia Is this a current diagnosis for this admission?: Yes (6) Lung cancer Is this a current diagnosis for this admission?: Yes Summary: Follow with oncology (7) Pulmonary embolism Is this a current diagnosis for this admission?: Yes Summary: With the recurrent pulmonary embolisms currently not very good candidate for the p.o. medications continue to subcu injection follow-up with the pigment making supervisor - Additional Information Resuscitation Status: Full Code Discharge Diet: Cardiac Discharge Activity: Activity As Tolerated, Balance Activity w/Rest, Energy Conservation, Weigh Daily Prescriptions: Fondaparinux Sodium [Arixtra Inj 7.5 mg/0.6 ml Disp. Syrin] 7.5 mg SUBCUT DAILY #5 disp.syrin Home Medications: Fluticasone/Salmeterol [Advair 250-50 Diskus 14 Dose/Diskus] 1 inh IH Q12 Furosemide [Lasix 20 mg Tablet] 20 mg PO Q8 08/07/17 Levalbuterol HCl [Xopenex Neb 1.25 mg/3 ml Ampul] 1.25 mg NEB RTQ12 08/07/17 Losartan Potassium [Cozaar 25 mg Tablet] 12.5 mg PO DAILY 08/07/17 Metoprolol Tartrate [Lopressor 25 mg Tablet] 12.5 mg PO Q12 08/07/17 Tamsulosin HCl [Flomax 0.4 mg Cap.sr] 0.4 mg PO DAILY 08/07/17 Tiotropium [place] [Spiriva Handihaler 5 Cap/Kit (18 Mcg/Cap)] 1 cap IH DAILY Fondaparinux Sodium [Arixtra Inj 7.5 mg/0.6 ml Disp. Syrin] 7.5 mg SUBCUT DAILY #5 disp.kurtisin 08/10/17 History of Present Illness History of Present Illness: OZ KOCH is a 67 year old male This is a 67 -year-old male with a significant history of the extensive right- sided pulmonary embolism with the right-sided heart failure and history of the lung cancers and a severe end-stage COPDCurrently on Eliquis 5 mg p.o. twice a day and [facility] associateCame to the emergency department with a complaint of chest pain on the left side with the stabbing for 45 minutes and then patients call the office and directed to the emergency department and emergency department patient's initial workup with the EKG and cardiac enzyme was also normalBut patient CT angiogram persistent with the right side of the blood clot was decreasing in the size but also from some left- sided new blood clot Patient's chest pain is pretty much all resolved but even the patient had with this chest pain is to be admitted in the hospital for further rule out and consult the cardiology and hematology's for further evaluations Patient's continues to take the Eliquis as prescribed Patient's denied any short of breath Patients have ongoing chronic cough Patient's denied any blood in the stools no black stools Patient's recently started working in the yard but denied any other unusual symptoms Hospital Course Hospital Course: 67-year-old male admitted in the hospital for the chest pain all cardiac workup and negatives patient's CT angiogram shows some questionable new pulmonary embolism patient is already on Eliquis and hematology was consulted and suggested subcu Lovenox therapy at this point patient otherwise remained stable patient discharged home with the subcu medications for outpatient Physical Exam Vital Signs: Temp Pulse Resp BP Pulse Ox 97.3 F 59 L 18 116/58 L 90 L 08/10/17 08:55 08/10/17 08:55 08/10/17 08:55 08/10/17 08:55 08/10/17 08:55 General appearance: PRESENT: no acute distress, well-developed, well-nourished Head exam: PRESENT: atraumatic, normocephalic Eye exam: PRESENT: conjunctiva pink, EOMI, PERRLA. ABSENT: scleral icterus Ear exam: PRESENT: normal external ear exam Mouth exam: PRESENT: moist, tongue midline Neck exam: PRESENT: full ROM. ABSENT: carotid bruit, JVD, lymphadenopathy, thyromegaly Respiratory exam: PRESENT: clear to auscultation steven Cardiovascular exam: PRESENT: RRR. ABSENT: diastolic murmur, rubs, systolic murmur Pulses: PRESENT: normal dorsalis pedis pul, +2 pedal pulses bilateral Vascular exam: PRESENT: normal capillary refill GI/Abdominal exam: PRESENT: normal bowel sounds, soft. ABSENT: distended, guarding, mass, organolmegaly, rebound, tenderness Rectal exam: PRESENT: deferred Musculoskeletal exam: PRESENT: ambulatory Neurological exam: PRESENT: alert, awake, oriented to person, oriented to place , oriented to time, oriented to situation, CN II-XII grossly intact. ABSENT: motor sensory deficit Psychiatric exam: PRESENT: appropriate affect, normal mood. ABSENT: homicidal ideation, suicidal ideation Skin exam: PRESENT: dry, intact, warm. ABSENT: cyanosis, rash Results Laboratory Results: 08/10/17 04:51 08/10/17 04:51 08/07/17 08/07/17 08/08/17 22:37 22:37 04:49 Creatine Kinase 66 56 CK-MB (CK-2) 3.22 Troponin I 0.012 NT-Pro-B Natriuret Pep 08/08/17 04:49 Creatine Kinase CK-MB (CK-2) 2.69 Troponin I 0.017 NT-Pro-B Natriuret Pep 3350 H Impressions: Chest X-Ray 08/07/17 11:48 IMPRESSION: COPD. Chronic pleural-parenchymal changes left lower lung zone and left base. Possible slight obscuring the right costophrenic angle not clearly identified on previous chest x-rays and may represent small effusion. Chest/Abdomen CTA 08/07/17 14:02 IMPRESSION: Small acute clot to these left lower lobe medial basal segment pulmonary artery. This was discussed with Dr. Sauceda in the emergency room. Incomplete resolution of the pulmonary emboli seen 12/20/2016, with partially calcified shrunken clot adherent to the hensley of the central pulmonary arteries as above. 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
== END 2017-08-10 09:55 | disposition home or self-care (01) | DRG 175 ==
LOC: ER 11:27 → EH 18:05 → 3S 20:09 → EH 20:11 → 3W 20:59
PROVIDERS: ADMIT Family Medicine; ATTEND Family Medicine
PROC: 3E0F73Z Introduction of Anti-inflammatory into Respiratory Tract, Via Natural or Artificial Opening (ICD-10-PCS; principal; 2017-08-08)
DX: I26.09 Other pulmonary embolism with acute cor pulmonale (principal); I11.0 Hypertensive heart disease with heart failure; I27.82 Chronic pulmonary embolism; I50.812 Chronic right heart failure; J44.9 Chronic obstructive pulmonary disease, unspecified; E78.00 Pure hypercholesterolemia, unspecified; F41.1 Generalized anxiety disorder; I27.20 Pulmonary hypertension, unspecified; I48.91 Unspecified atrial fibrillation; Z79.01 Long term (current) use of anticoagulants; Z85.118 Personal history of other malignant neoplasm of bronchus and lung; Z87.891 Personal history of nicotine dependence; Z88.8 Allergy status to other drugs, medicaments and biological substances; Z90.2 Acquired absence of lung [part of]; Z91.19 Patient's noncompliance with other medical treatment and regimen; Z86.73 Personal history of transient ischemic attack (TIA), and cerebral infarction without residual deficits
CPT/HCPCS: 36415; 71045; 71275; 80048; 80053; 82550; 82553; 83735; 83880; 84484; 85025; 85027; 93005; 93010; 93306; 94640; 96372; 99291; J1650; J1652; J3490; J7620

== ENCOUNTER → 2017-10-05 | Outpatient (CLI) | payer MEDICARE, OTHER ==
--- NOTE | 2017-10-05 16:57 | RADIOLOGY REPORT (SQ) ---
EXAM DESCRIPTION: CT ABD/PELVIS WITH IV ONLY COMPLETED DATE/TIME: 10/05/2017 2:05 pm REASON FOR STUDY: INTRA-ABD AND PELVIC SWELLING, MASS AND LUMP, UNSP SITE (R19.00) R19.00 INTRA-ABD AND PELVIC SWELLING, MASS AND LUMP, UNSP SI COMPARISON: CT chest exams 05/22/2014, 03/12/2015, 12/20/2016, 08/07/2017 TECHNIQUE: CT scan of the abdomen and pelvis performed using helical scanning technique with dynamic intravenous contrast injection. No oral contrast. Images reviewed with lung, soft tissue, and bone windows. Reconstructed coronal and sagittal MPR images reviewed. Delayed images for evaluation of the urinary system also acquired. All images stored on PACS. All CT scanners at this facility use dose modulation, iterative reconstruction, and/or weight based d osing when appropriate to reduce radiation dose to as low as reasonably achievable (ALARA). [facility]: Dose Right [facility]: CareDose [facility]: Dose Right [facility]: Teradose 4D [facility]: mVisum CONTRAST TYPE AND DOSE: contrast/concentration: Isovue 300.00 mg/ml; Total Contrast Delivered: 97.0 ml; Total Saline Delivered: 72.0 ml RENAL FUNCTION: Creatinine 1.5 RADIATION DOSE: CT Rad equipment meets quality standard of care and radiation dose reduction techniq ues were employed. CTDIvol: 6.7 - 8.0 mGy. DLP: 738 mGy-cm.. LIMITATIONS: None. FINDINGS: LOWER CHEST: End-stage appearance of obstructive lung disease at both bases. LIVER: Normal size. No masses. No dilated ducts. SPLEEN: Normal size. No focal lesions. PANCREAS: No masses. No significant calcifications. No adjacent inflammation or peripancreatic fluid collections. Pancreatic duct not dilated. GALLBLADDER: No identified stones by CT criteria. No inflammatory changes to suggest cholecystitis. ADRENAL GLANDS: No significant masses or asymmetry. RIGHT KIDNEY AND URETER: No solid masses. No significant calcifications. No hydronephrosis or hyd roureter. LEFT KIDNEY AND URETER: No solid masses. No significant calcifications. No hydronephrosis or hydr oureter. AORTA AND VESSELS: No aneurysm. No dissection. Renal arteries, SMA, celiac without stenosis. RETROPERITONEUM: No retroperitoneal adenopathy, hemorrhage or masses. BOWEL AND PERITONEAL CAVITY: No masses or inflammatory changes. No free fluid or peritoneal masses. No CT evidence of bowel obstruction. Few colonic diverticuli without CT signs of acute diverticuliti s APPENDIX: Normal. PELVIS: No mass. No free fluid. Normal bladder. ABDOMINAL WALL: Bilateral fat containing inguinal hernias left greater than right BONES: No significant or acute findings. OTHER: No other significant finding. IMPRESSION: End-stage obstructive lung disease at both bases. Small fat containing bilateral inguin al hernias. TECHNICAL DOCUMENTATION: JOB ID: [id number] Quality ID # [id number]: Final reports with documentation of one or more dose reduction techniques (e.g., Au tomated exposure control, adjustment of the mA and/or kV according to patient size, use of iterative reconstruction technique) 2010 [employer]- All Rights Reserved Reading location - IP/workstation name: [email or web address]
== END ==
LOC: RAD 13:10
PROVIDERS: ATTEND Physician Assistant Medical
DX: R19.00 Intra-abdominal and pelvic swelling, mass and lump, unspecified site (principal)
CPT/HCPCS: 74177; 82565

== ENCOUNTER → 2018-05-30 | Outpatient (CLI) | payer MEDICARE, OTHER ==
--- NOTE | 2018-05-30 16:54 | RADIOLOGY REPORT (SQ) ---
EXAM DESCRIPTION: CHEST PA/LATERAL COMPLETED DATE/TIME: 05/30/2018 4:45 pm REASON FOR STUDY: COUGH R05 COUGH COMPARISON: 08/04/2016 NUMBER OF VIEWS: Two view TECHNIQUE: Frontal and lateral radiographic images of the chest acquired. LIMITATIONS: None. FINDINGS: LUNGS AND PLEURA: Chronic COPD with stable areas of scarring in the lower lungs. Increasi ng airspace opacity in the more superior right lower lobe likely represents progressive fibrosis alth ough cannot exclude superimposed pneumonia. Clinical correlation is needed. Chronic blunting of the left costophrenic angle. MEDIASTINUM AND HILAR STRUCTURES: Stable heart size and mediastinal structures. HEART AND VASCULAR STRUCTURES: Stable appearance. BONES: No acute findings. HARDWARE: None in the chest. OTHER: No other significant finding. IMPRESSION: COPD. Progressive pulmonary fibrosis in the right lung. Cannot exclude superimposed pn eumonia. TECHNICAL DOCUMENTATION: JOB ID: [id number] [employer]- All Rights Reserved Reading location - IP/workstation name: [email or web address]
== END ==
LOC: OD 16:31
PROVIDERS: ATTEND Family Medicine
DX: R05 Cough (principal)
CPT/HCPCS: 71046

== ENCOUNTER → 2020-02-02 | Outpatient (CLI) | payer MEDICARE, OTHER ==
--- NOTE | 2020-02-02 14:49 | RADIOLOGY REPORT (SQ) ---
EXAM DESCRIPTION: CT CHEST WITHOUT IMAGES COMPLETED DATE/TIME: 02/02/2020 1:43 pm REASON FOR STUDY: J84.10 PULMONARY FIBROSIS, UNSPECIFIED J84.10 PULMONARY FIBROSIS, UNSPECIFIED COMPARISON: 08/07/2017 TECHNIQUE: CT scan performed of the chest without intravenous contrast. Images reviewed with lung, soft tissue and bone windows. Reconstructed coronal and sagittal MPR images reviewed. All images st ored on PACS. All CT scanners at this facility use dose modulation, iterative reconstruction, and/or weight based d osing when appropriate to reduce radiation dose to as low as reasonably achievable (ALARA). [facility]: Dose Right [facility]: CareDose [facility]: Dose Right [facility]: Teradose 4D [facility]: [employer] RADIATION DOSE: CT Rad equipment meets quality standard of care and radiation dose reduction techniq ues were employed. CTDIvol: 11.6 mGy. DLP: 492 mGy-cm. mGy. LIMITATIONS: No technical limitations. FINDINGS: LUNGS AND PLEURA: Paraseptal and centrilobular emphysematous changes are present extensive ly bilaterally. Mild peripheral pulmonary fibrosis is seen in the lung bases. Mild scarring in the right upper lobe. HILAR AND MEDIASTINAL STRUCTURES: No identified masses or abnormal nodes. No obvious aneurysm. HEART AND VASCULAR STRUCTURES: No aneurysm. No pericardial effusion. UPPER ABDOMEN: No significant findings. Limited exam. THYROID AND OTHER SOFT TISSUES: No masses. No adenopathy. BONES: No significant finding. HARDWARE: None in the chest. OTHER: No other significant findings. IMPRESSION: Extensive pulmonary emphysema as described. Very mild pulmonary fibrosis. No acute fin dings. TECHNICAL DOCUMENTATION: JOB ID: [id number] Quality ID # [id number]: Final reports with documentation of one or more dose reduction techniques (e.g., Au tomated exposure control, adjustment of the mA and/or kV according to patient size, use of iterative reconstruction technique) 2010 [employer]- All Rights Reserved Reading location - IP/workstation name: [email or web address]
== END ==
LOC: RAD 13:28
PROVIDERS: ATTEND Internal Medicine Pulmonary Disease
DX: J84.10 Pulmonary fibrosis, unspecified (principal)
CPT/HCPCS: 71250